=== PATIENT | male | born 1945 | race Caucasian/White ===

== ENCOUNTER 2018-12-16 09:44 | Emergency (ER) | payer MEDICARE, OTHER ==
[~2018-12-16] VITALS: Ht 170.2 cm; Wt 75.0 kg
[2018-12-16] MEDS ORDERED: DIATR MEGLU/DIATRIZOATE SODIUM 30 ML SOLUTION PO ONE (10:00)
[2018-12-16 10:03] VITALS: Ht 170.2 cm; Wt 75.0 kg
[2018-12-16] MEDS ORDERED: IOHEXOL 300MG/ML 30 ML BTL ONE (10:03)
--- NOTE | 2018-12-16 10:39 | ERD ---
ER Documentation Chief Complaint Chief Complaint ACCIDENTAL G TUBE REMOVAL AT 07:00 HPI This is a 73-year-old male with a past medical history of hypertension, hyperlipidemia, diabetes, CVA with right-sided deficits, vascular dementia, generalized weakness, unable to care for himself, in a nursing facility, dysphasia status post G-tube placement who is presenting for G-tube replacement. The patient reportedly accidentally got his G-tube removed. They placed a Ron catheter through the gastrostomy. The patient was transferred here for further assessment. It is not actively bleeding. The patient is comfortable and in no distress. History and physical is limited secondary to dementia. ROS Unable to obtain secondary to dementia PMhx/Soc History of Surgery: Yes (G-tube placement) Anesthesia Reaction: No Hx Neurological Disorder: Yes (CVA with right-sided hemiplegia, vascular dementia) Hx Respiratory Disorders: No Hx Cardiac Disorders: Yes (Hypertension, hyperlipidemia, diabetes) Hx Psychiatric Problems: Yes (Dementia) Hx Miscellaneous Medical Probl: Yes (Dysphasia) Hx Alcohol Use: No Hx Substance Use: No Hx Tobacco Use: No FmHx Unable to obtain Physical Exam Vitals Vital Signs Date Temp Pulse Resp B/P (MAP) Pulse Ox O2 O2 Flow FiO2 Time Delivery Rate 12/16/18 97.5 90 16 134/70 98 10:03 (91) Physical Exam Const: No acute distress Head: Atraumatic Eyes: Normal Conjunctiva ENT: Normal External Ears, Nose and Mouth. Neck: Full range of motion. No meningismus. Resp: Clear to auscultation bilaterally Cardio: Regular rate and rhythm, no murmurs Abd: Gastrostomy present with a Ron catheter through the site. Soft, non tender, non distended. Normal bowel sounds Skin: No petechiae or rashes Back: No midline or flank tenderness Ext: No cyanosis, or edema Neur: Awake and alert. Right-sided hemiplegia. Dysarthric. Results 24 hrs Current Medications Medications Dose Sig/Gisela Start Time Status Last (Trade) Ordered Route PRN Stop Time Admin Dose Reason Admin Diatrizoate 30 ml ONCE ONCE 12/16/18 DC Meglum/ PO 10:00 Diatrizoate 12/16/18 10:01 Sod (Gastrografin 66-10 Solution) Iohexol 30 ml STK-MED 12/16/18 DC (Omnipaque ONCE .ROUTE 10:03 300mg/ ml) 12/16/18 10:04 Procedures/[facility] MDM The patient's presentation warrants further investigation. Previous medical records, if available, were reviewed. IMAGING Imaging and Radiology interpretation reviewed. KUB with Omnipaque Reviewed by myself. Gastrostomy tube appears to be in place. Visualization of the lumen of the stomach via Omnipaque. No extravasation seen. TREATMENT/DISPOSITION The patient presents for G-tube replacement. This was completed without complication. I do not see any evidence of extravasation of the contrast material. There is no bleeding. The patient is stable with an unremarkable abdominal exam. I do not see any evidence of pneumoperitoneum. I do not suspect viscus perforation. PROCEDURE G-tube Placement Performer: Myself Preprocedure: Sterile technique, local prep and lubrication, time out performed. Location: Epigastrum Device: 20 serbian G-tube Technique: Dana pressure with twisting motion. Balloon inflation Results: Gastric contents expressed. Compl: none X-ray Abdomen 1V Interpreted by me: Free Air: None Bowel Gas: Nonspecific Contrast: Intraluminal DISCHARGE Upon reevaluation of the patient, symptoms have improved. No emergent diagnoses were identified. At this time, I feel that the patient stable for discharge. The patient was instructed to follow-up with a primary care physician in 1-3 days. The patient will be given strict precautions with which to return to the emergency department. Prescriptions: None The patient's blood pressure was elevated at greater than 120/80 while in the emergency department. The patient was otherwise stable with no evidence of hypertensive urgency or emergency. The patient does not require admission for blood pressure control. I have discussed with the patient the risks of hypertension. I have instructed the patient to return to the ER for any new or worsening symptoms including chest pain, shortness of breath, headache, blurred vision, confusion, nausea, vomiting or LOC. I have advised the patient to follow up with the primary care physician for outpatient monitoring and treatment for hypertension in 1-3 days. Disclaimer: Inadvertent spelling and grammatical errors are likely due to EHR/dictation software use and do not reflect on the overall quality of patient care. Note that the electronic time recorded on this note does not necessarily reflect the actual time of the patient encounter. Departure Diagnosis: Primary Impression: Encounter for feeding tube placement Condition: Stable Patient Instructions: Feeding Tube Replacement Additional Instructions: Thank you for for coming to [facility] for your care today. Please ask your nurse or provider if you have questions about your care today and do not leave until all your questions have been answered. Please use any medications given as directed and follow-up with your doctor (or the doctor you were referred to) in the next 1-3 days. If you do not have a primary care doctor you may follow up at the [facility] or [facility] (listed below). You may also use motrin and tylenol as needed for fever and/or pain unless instructed otherwise by your provider or nurse. Indications for more urgent follow-up have been discussed, but you may return to the Emergency Department at ANY time for any worrisome or worsening symptoms. If you have abdominal pain, please know that no test or exam you received is perfect and you should follow up within 8 hours for continued pain. If you had any imaging studies today, such as an X-Ray or CT Scan, these studies will be reviewed later by a radiologist. You will be called if there are important findings that were not identified today, so make sure the contact information you provided at registration is correct. If you received any narcotic pain control medicine today, such as Vicodin, Morphine or Dilaudid, your coordination and judgment may be affected for a number of hours. Please do not drive or operate heavy machinery, and you may want someone to assist you at home. If you were given a prescription for narcotic medication, be aware that it is very addictive- use sparingly and only if necessary. PLEASE SEEK FURTHER EVALUATION AND MANAGEMENT AT YOUR DOCTORS OFFICE WITHIN THE NEXT 1-3 DAYS. IT IS YOUR RESPONSIBILITY TO MAKE AN APPOINTMENT FOR FOLOW-UP CARE. IF YOU HAVE A PRIMARY DOCTOR, PLEASE CALL THEIR OFFICE TO SCHEDULE AN APPOINTMENT FOR FOLLOW UP. IF YOU DO NOT HAVE A PRIMARY DOCTOR YOU CAN CALL OUR PHYSICIAN REFERRAL HOTLINE AT IF YOU CAN NOT AFFORD TO SEE A PHYSICIAN YOU CAN CHOSE FROM THE FOLLOWING [facility]: [facility] [address] [facility] [address] [facility] [address] [facility] [address] [facility] [address] [facility]. [facility]. [address] MAXX ARCINIEGA MD Dec 16, 2018 10:33
[2018-12-16 11:21] VITALS: BP 107/59; PULSE 82; RESP 16
== END 2018-12-16 11:24 | disposition home or self-care (01) ==
LOC: E/R 09:44
DX: K94.23 Gastrostomy malfunction (principal); I10 Essential (primary) hypertension; E11.9 Type 2 diabetes mellitus without complications; Z86.73 Personal history of transient ischemic attack (TIA), and cerebral infarction without residual deficits
CPT/HCPCS: 43761; 74018; 99284; Q9967

== ENCOUNTER 2018-12-29 00:08 | Inpatient (IN) | payer MEDICARE, OTHER ==
[2018-12-29] VITALS (64 sets, daily range): BP systolic 74–140; BP diastolic 35–96; PULSE 91–113; RESP 19–31; Ht 175.3 cm; Wt 70.0 kg
[~2018-12-29] VITALS: Ht 175.3 cm; Wt 70.0 kg
[2018-12-29] MEDS ORDERED: ALBUTEROL 0.5% (NEB) 2.5 MG/0.5 ML AMP INH STA (00:14)
[2018-12-29] MEDS ORDERED: METHYLPREDNISOLONE 125 MG INJ IV STA (00:14)
[2018-12-29] MEDS ORDERED: IPRATROPIUM (NEB) 0.5 MG/2.5 ML AMP INH STA (00:14)
[2018-12-29] MEDS ORDERED: SODIUM CHLORIDE 0.9% 1L BAG IV* STA (00:48)
[2018-12-29] MEDS ORDERED: VANCOMYCIN 1 GM (PMX) 250 ML IVPB ONE (01:00)
[2018-12-29] MEDS ORDERED: CEFEPIME 1GM/50 ML (PMX) 50 ML IVPB ONE (01:00)
--- NOTE | 2018-12-29 01:49 | ERD ---
ER Documentation Chief Complaint Chief Complaint vignesh ra from residential for sob x1 hour, baseline dementia HPI This is a 73-year-old male with a past medical history of hypertension, hyperlipidemia, diabetes, previous CVA with residual right-sided deficits, vascular dementia, dysphasia status post G-tube placement, nonverbal at baseline who is presenting with shortness of breath and wheezing today, progressively worsening over the last hour. The patient was tachycardic in route to the hospital. The patient was initially hypoxic, but his oxygenation improved to the high 90s on a facemask with the paramedics. The patient was given an albuterol nebulized treatment prior to arrival. History and physical is limited secondary to clinical condition and chronic altered mentation. ROS All systems reviewed and are negative except as per history of present illness. Allergies Allergies: Coded Allergies: No Known Allergy (Unverified , 12/29/18) PMhx/Soc History of Surgery: Yes (G-tube placement) Anesthesia Reaction: No Hx Neurological Disorder: Yes (CVA with right-sided hemiplegia, vascular dementia) Hx Respiratory Disorders: No Hx Cardiac Disorders: Yes (Hypertension, hyperlipidemia, diabetes) Hx Psychiatric Problems: Yes (Dementia) Hx Miscellaneous Medical Probl: Yes (Dysphasia) Hx Alcohol Use: No Hx Substance Use: No Hx Tobacco Use: No Smoking Status: Never smoker FmHx Family History: No diabetes Physical Exam Vitals Vital Signs Date Temp Pulse Resp B/P (MAP) Pulse Ox O2 O2 Flow FiO2 Time Delivery Rate 12/29/18 96 50 03:36 12/29/18 98.8 105 33 100/51 99 Mechanical 03:26 (67) Ventilator 12/29/18 96 50 02:35 12/29/18 110 30 97/41 (59) 99 Non 01:30 Rebreather 12/29/18 118 16 121/65 100 Non 00:45 (83) Rebreather 12/29/18 108 30 100 Non 100 00:38 Rebreather Mask 12/29/18 Nasal 2 00:22 Cannula 12/29/18 97.5 120 28 124/81 100 Room Air 00:22 (95) 12/29/18 97.5 115 28 127/81 100 00:12 (96) Physical Exam Const: No acute distress, minimally responsive at baseline. Head: Atraumatic Eyes: Normal Conjunctiva ENT: Normal External Ears, Nose. Dry mucous membranes. Neck: Trachea is midline. Resp: Increased work of breathing. Diffuse inspiratory and expiratory wheezes. Cardio: Regular rhythm, tachycardia, no murmurs or rubs or gallops Abd: G-tube present. Soft, non tender, non distended. Normal bowel sounds Skin: Pale. No petechiae or rashes Back: No midline or flank tenderness Ext: No cyanosis, or edema Neur: Awake and alert. Right-sided hemiplegia. Result Diagram: 12/29/18 0042 12/29/18 0042 Results 24 hrs Laboratory Tests Test 12/29/18 00:34 12/29/18 00:42 12/29/18 01:40 12/29/18 02:06 POC Venous 8.4 mmol/L Lactate White Blood 14.8 10^3/ul Count Red Blood Count 4.73 10^6/ul Hemoglobin 14.2 g/dl Hematocrit 42.6 % Mean Corpuscular 90.1 fl Volume Mean Corpuscular 30.0 pg Hemoglobin Mean Corpuscular 33.3 g/dl Hemoglobin Alice nt Red Cell 14.1 % Distribution Width Platelet Count 301 10^3/UL Mean Platelet 11.5 fl Volume Immature 1.400 % Granulocytes % Neutrophils % 79.4 % Lymphocytes % 13.6 % Monocytes % 4.5 % Eosinophils % 0.4 % Basophils % 0.7 % Nucleated Red 0.0 /100WBC Blood Cells % Immature 0.210 10^3/ul Granulocytes # Neutrophils # 11.8 10^3/ul Lymphocytes # 2.0 10^3/ul Monocytes # 0.7 10^3/ul Eosinophils # 0.1 10^3/ul Basophils # 0.1 10^3/ul Nucleated Red 0.0 10^3/ul Blood Cells # Prothrombin Time 13.1 Sec Prothrombin Time 1.0 Ratio INR 0.98 International Normalized Ratio Activated 27.5 Sec Partial Thrombop last Time Sodium Level 139 mmol/L Potassium Level 4.9 mmol/L Chloride Level 97 mmol/L Carbon Dioxide 24 mmol/L Level Anion Gap 18 Blood Urea 39 mg/dl Nitrogen Creatinine 0.93 mg/dl Est Glomerular mL/min Filtrat Rate mL/min Glucose Level 254 mg/dl Calcium Level 10.5 mg/dl Troponin I 0.032 ng/ml Urine Color RIGO Urine Clarity CLOUDY Urine pH 5.0 Urine Specific 1.026 [place] Urine Ketones TRACE mg/dL Urine Nitrite NEGATIVE mg/dL Urine Bilirubin NEGATIVE mg/dL Urine 1+ mg/dL Urobilinogen Urine Leukocyte NEGATIVE Yesi/ul Esterase Urine 92 /HPF Microscopic RBC Urine 2 /HPF Microscopic WBC Urine Bacteria FEW /HPF Urine Hyaline FEW /HPF Casts Urine Mucus FEW /HPF Urine Hemoglobin 2+ mg/dL Urine Glucose 1+ mg/dL Urine Total 1+ mg/dl Protein Blood Gas Blood arterial Specimen Source Arterial Blood 12/29/2018 2:10:1 Date Drawn 2 AM Arterial Blood 7.266 pH (Temp corrected) Arterial Blood 35.5 mmhg pCO2 (Temp correct) Arterial Blood 76.9 mmHG pO2 (Temp corrected) Arterial Blood 15.8 mmol/L HCO3 Arterial Blood -10.3 mmol/L Base Excess Arterial Blood 92.8 mmHG Oxygen Saturatio n Pérez Test N/A Arterial Blood Right Brachial Gas Puncture Site Arterial 0.3 % Blood Carboxyhem oglobin Arterial Blood 0.4 % Methemoglobin Blood Gas A-a O2 95.3 mmHg Differential Oxyhemoglobin 92.2 % Percent Blood Gas 37.0 C Temperature Blood Gas NASAL CANNULA Modality FiO2 30.0 % Blood Gas Kris DUFF MD Critical Value Read Back Blood Gas Notified Whom Blood Gas 12/29/2018 2:17:5 Notified Time 7 AM Test 12/29/18 02:30 Lactic Acid 11.4 mmol/L Level Current Medications Medications Dose Sig/Gisela Start Time Status Last (Trade) Ordered Route PRN Stop Time Admin Dose Reason Admin Ipratropium 1.5 mg ONCE STAT 12/29/18 DC 12/29/18 [place] INH 00:14 12/29/18 00:37 (Atrovent 00:17 0.02% (Neb)) Albuterol 15 mg ONCE STAT 12/29/18 DC 12/29/18 (Proventil INH 00:14 12/29/18 00:37 0.5% (Neb)) 00:17 125 mg ONCE STAT 12/29/18 DC 12/29/18 Methylprednis IV 00:14 12/29/18 01:31 olone Sodium 00:17 Succinate (Solu-Medrol) Sodium 2,100 ml BOLUS OVER 2 12/29/18 DC 12/29/18 Chloride HOURS STAT 00:48 12/29/18 01:20 (NS) IV* 00:50 Vancomycin 250 ml @ ONCE ONCE 12/29/18 DC 12/29/18 HCl 125 mls/hr IVPB 01:00 12/29/18 01:31 02:59 Cefepime HCl 50 ml @ ONCE ONCE 12/29/18 DC 12/29/18 100 mls/hr IVPB 01:00 12/29/18 01:20 01:29 Ondansetron 4 mg ER BRIDGE 12/29/18 HCl (Zofran PRN IV 02:00 12/30/18 Inj) NAUSEA/VOMITI 01:59 NG 650 mg ER BRIDGE 12/29/18 Acetaminophen PRN PO 02:00 12/30/18 (Tylenol .MILD PAIN 01:59 Tab) 1-3 OR TEMP IV Flush 10 ml STK-MED 12/29/18 DC (NS 10 ml) ONCE .ROUTE 03:32 12/29/18 03:33 Sodium 100 ml @ ud STK-MED 12/29/18 DC Chloride ONCE .ROUTE 03:32 12/29/18 03:33 Iohexol 100 ml @ ud STK-MED 12/29/18 DC ONCE .ROUTE 03:32 12/29/18 03:33 Sodium 1,000 ml @ Q10H IV 12/29/18 Chloride 100 mls/hr 03:28 Ondansetron 4 mg Q6H PRN 12/29/18 HCl (Zofran IV NAUSEA 03:30 Inj) AND/OR VOMITING Albuterol/ 3 ml Q2H RESP 12/29/18 Ipratropium THERAPY PRN 03:30 (Duoneb) NEB SHORTNESS OF BREATH 650 mg Q6H PRN 12/29/18 Acetaminophen PO PAIN 03:30 (Tylenol LEVEL 1-3 OR Liquid) FEVER 40 mg DAILY@06 12/29/18 DC Pantoprazole IV 06:00 12/29/18 (Protonix 06:00 Iv) Heparin 5,000 unit Q12 SC 12/29/18 Sodium 09:00 (Porcine) (Heparin (5000 Units/1ml)) Famotidine 20 mg BID IV 12/29/18 (Pepcid Iv) 09:00 Cefepime HCl 50 ml @ Q12 IVPB 12/29/18 100 mls/hr 14:00 Vancomycin VANCOMYCIN PER 12/29/18 HCl (Vanco PER PHARMACY PROTOCOL XX 14:00 Iv Per Pharmacy) Vancomycin 250 ml @ Q12H IVPB 12/29/18 HCl 125 mls/hr 10:00 VANCOMYCIN 2100 ONCE 12/30/18 Miscellaneous TROUGH LEVEL XX 21:00 12/30/18 21:01 Information (*Rx Drug Level Order Reminder*) Procedures/MDM MDM The patient's presentation warrants further investigation. Previous medical records, if available, were reviewed. LABS The patient's laboratory testing was obtained and reviewed. No emergent treatment was required unless described below. CBC: Leukocytosis, potentially from a systemic infection. No E/o anemia or thrombocytopenia Chemistry: No E/o severe acidosis or alkalosis or renal failure. Elevated BUN, concerning for possible dehydration. Hyperglycemia without DKA. PT/INR: No E/o significant coagulopathy Lactate: Elevated, concerning for the possibility of septic shock. Troponin: No E/o acute ischemia Urine: Hematuria. No evidence of infection. ABG: Metabolic acidosis. Slight hypoxemia. EKG EKG read by me: Rate/Rhythm: Sinus tachycardia at 109 bpm Intervals: Normal [place]: Normal Impression: No evidence of acute ischemia. Sinus tachycardia IMAGING Imaging and Radiology interpretation reviewed. CXR 1V Interpreted by me Soft Tissue: No acute abnormalities Bones: No acute abnormalities Mediastinum/Cardiac Silhouette: Unremarkable. No widened mediastinum. Lungs: No acute abnormalities. Normal pulmonary vasculature. No pneumothorax. No pulmonary edema. Clear costal diaphragmatic angles. No pleural effusions. No opacity or consolidations concerning for pneumonia. TREATMENT/DISPOSITION The patient presents in respiratory distress with wheezes and tachycardia. He was hypoxic prior to arrival and started on facemask with improvement of his o xygenation. The patient was wheezing on my exam as well. The patient was treated with nebulized albuterol and ipratropium in addition to IV Solu-Medrol given my concerns of bronchitis. Lactic acid was completed early in the patient's course and found to be very elevated. Given the patient's lack of respiratory history, I am concerned about a possible infectious etiology of the patient's bronchitis. The patient does meet criteria for septic shock based on the lactic acid. The patient does have hypoxia with tachycardia and a very elevated AA gradient. I did order a CTA of the chest to evaluate for the possibility of other etiologies, such as a pulmonary embolism. This study is currently pending. SEPSIS NOTE SIRS Criteria: Tachycardia, leukocytosis Infectious source: Respiratory End organ damage indicated by: Lactate > 2.0 mmol/L, AHRF Sat < 92% without oxygen SEPSIS MANAGEMENT Time to recognize sepsis: 39. Time to recognize severe sepsis: 39. Time to recognize septic shock: 0. 3 HOUR BUNDLE Blood cultures x 2 before abx: Yes 30 ml/kg NS bolus completed Initial lactate 8.4 Repeat lactate 11.4 SEPTIC SHOCK ASSESSMENT: YES lactic acid > 4.0 NO persistent hypotension (SBP < 90 or 40 mmHg drop, MAP < 65) despite 30 L/kg IV fluid bolus VOLUME REASSESSMENT FOR SEPTIC SHOCK: Reevaluation Time: 325 Temp 98.8, BP 100/51, HR 105, RR 33, Pox 99% on vapotherm Heart regular rhythm, tachycardia Lungs coarse breath sounds Skin warm & dry Cap Refill less than 2 seconds Pulses radially present PERSISTENT HYPOTENSION TREATMENT: Comfort care no Central line not required Vasopressors not required I considered further perfusion assessment with CVP measurement, SCVO2, bedside ultrasound volume assessment, passive leg raise, trial of further fluid bolus. And proceeded with 30 ml/kg fluid bolus of NSS, broad spectrum antibiotics, and admission. CRITICAL CARE Critical care time 35 minutes Emergent fluid management while maintaining close respiratory support. Provision of immediate and broad-spectrum antibiotic therapy. Simultaneous assessment for possible sources in order to direct targeted therapy. Consideration for invasive and chemical support to prevent cardiopulmonary collapse. Critical care time is independent of procedures performed. ADMISSION At this time, I feel that the patient requires admission for further evaluation and management. The patient will be admitted to panel in accordance with the patient's insurance. The patient was accepted by Dr. Dickerson at 0115 AM 12/29/2018 to the ICU. Disclaimer: Inadvertent spelling and grammatical errors are likely due to EHR/dictation software use and do not reflect on the overall quality of patient care. Note that the electronic time recorded on this note does not necessarily reflect the actual time of the patient encounter. Departure Diagnosis: Primary Impression: Septic shock Additional Impressions: Tachycardia Hypoxia Bronchitis Wheezing Leukocytosis Leukocytosis type: unspecified Qualified Codes: D72.829 - Elevated white b lood cell count, unspecified Lactic acid acidosis Condition: Serious MAXX DUFF MD Dec 29, 2018 01:46
[2018-12-29] MEDS ORDERED: ONDANSETRON 4 MG INJ IV PRN ×3 (02:00→08:30)
[2018-12-29] MEDS ORDERED: ACETAMINOPHEN 325 MG TAB PO PRN (02:00)
[2018-12-29] MEDS ORDERED: SOD CHLORIDE 0.9% 1,000 ML IV SCH (03:28)
[2018-12-29] MEDS ORDERED: ALBUTEROL/IPRATROPIUM (NEB) 3 ML AMP NEB PRN (03:30)
[2018-12-29] MEDS ORDERED: SOD CHLORIDE 0.9% 100 ML ONE (03:32)
[2018-12-29] MEDS ORDERED: IOHEXOL 100 ML ONE (03:32)
[2018-12-29] MEDS ORDERED: PANTOPRAZOLE 40 MG INJ IV SCH (06:00)
--- NOTE | 2018-12-29 06:09 | HP ---
Date/Time of Note Date/Time of Note DATE: 12/29/18 TIME: 06:03 Assessment/Plan VTE Prophylaxis Pharmacological prophylaxis: heparin Lines/Catheters IV Catheter Type (from Nrsg): Saline Lock Assessment/Plan Assessment/Plan 1. Septic shock: 2/2 Healthcare associated pneumonia -IV fluids, IV antibiotic -Initiate pressor after talking to family/decision-maker -Trend lactate -Follow-up culture results 2. Hypoxia: ABG with high A-a gradient -Follow-up chest CT results -Supplemental oxygen, bronchodilators, steroid -Pulmonary consult 3. Diabetes: Insulin while in-house 4. History of hypertension: See #1 5. History of CVA with right-sided hemiplegia 6. Dementia: Supportive care 7. Dysphagia with G-tube -Tube was exchanged here in our ER 2 weeks ago CODE STATUS: DNR/DNI Result Diagram: 12/29/18 0042 12/29/18 0042 Results 24hrs Laboratory Tests Test 12/29/18 00:34 12/29/18 00:42 12/29/18 01:40 12/29/18 02:06 POC Venous Lactate 8.4 *H White Blood Count 14.8 H Red Blood Count 4.73 Hemoglobin 14.2 Hematocrit 42.6 Mean Corpuscular 90.1 Volume Mean Corpuscular 30.0 Hemoglobin Mean Corpuscular 33.3 Hemoglobin Concent Red Cell 14.1 Distribution Width Platelet Count 301 Mean Platelet 11.5 H Volume Immature 1.400 H Granulocytes % Neutrophils % 79.4 H Lymphocytes % 13.6 L Monocytes % 4.5 Eosinophils % 0.4 Basophils % 0.7 Nucleated Red 0.0 Blood Cells % Immature 0.210 H Granulocytes # Neutrophils # 11.8 H Lymphocytes # 2.0 Monocytes # 0.7 Eosinophils # 0.1 Basophils # 0.1 Nucleated Red 0.0 Blood Cells # Prothrombin Time 13.1 Prothrombin Time 1.0 Ratio INR International 0.98 Normalized Ratio Activated 27.[address] Time Sodium Level 139 Potassium Level 4.9 Chloride Level 97 Carbon Dioxide 24 Level Anion Gap 18 H Blood Urea 39 H Nitrogen Creatinine 0.93 Est Glomerular Filtrat Rate mL/min Glucose Level 254 H Calcium Level 10.5 H Troponin I 0.032 Urine Color RIGO Urine Clarity CLOUDY A Urine pH 5.0 Urine Specific 1.026 [place] Urine Ketones TRACE A Urine Nitrite NEGATIVE Urine Bilirubin NEGATIVE Urine Urobilinogen 1+ H Urine Leukocyte NEGATIVE Esterase Urine Microscopic 92 H RBC Urine Microscopic 2 WBC Urine Bacteria FEW A Urine Hyaline FEW A Casts Urine Mucus FEW A Urine Hemoglobin 2+ H Urine Glucose 1+ H Urine Total 1+ H Protein Blood Gas Specimen Blood arterial Source Arterial Blood 12/29/2018 2:10:12 Date Drawn AM Arterial Blood pH 7.266 *L (Temp corrected) Arterial Blood 35.5 pCO2 (Temp correct) Arterial Blood pO2 76.9 L (Temp corrected) Arterial Blood 15.8 L HCO3 Arterial Blood -10.3 L Base Excess Arterial Blood 92.8 L Oxygen Saturation Pérez Test N/A Arterial Blood Gas Right Brachial Puncture Site Arterial 0.3 Blood Carboxyhemog lobin Arterial Blood 0.4 Methemoglobin Blood Gas A-a O2 95.3 H Differential Oxyhemoglobin 92.2 L Percent Blood Gas 37.0 Temperature Blood Gas Modality NASAL CANNULA FiO2 30.0 Blood Gas Critical Kris DUFF MD Value Read Back Blood Gas Notified KM Whom Blood Gas Notified 12/29/2018 2:17:57 Time AM Test 12/29/18 02:30 12/29/18 04:42 Lactic Acid Level 11.4 *H 11.7 *H HPI/ROS Admit Date/Time Admit Date/Time Hx of Present Illness Patient is a 73-year-old male with a history of dementia, CVA was right-sided deficits, hypertension, diabetes, dysphagia with G-tube. Patient was brought from [facility] for shortness of breath, wheezing and hypoxia. Patient was noted to have a diffuse wheezing. On presentation to the ER he was tachycardic with heart rate in the 120s and tachypneic with respiratory rates almost 30. Initially blood pressure was okay however has been progressively becoming more hypotensive. Lab shows a WBC of almost 15,000. Initial lactic acid 8 but has been trending up, currently almost 12. ABG on 30% FiO2 showed pH of 7.26, PCO2 35, PO2 77, bicarb 16 and high A-a gradient of 95. Chest x-ray without acute findings. CT chest results pending. Patient was seen in our ER for G-tube replacement after it was accidentally pulled out 2 weeks ago. Patient is DNR. PMH/Family/Social Past Medical History Medical History: other (See HPI) Medications Current Medications Ondansetron HCl (Zofran Inj) 4 mg ER BRIDGE PRN IV NAUSEA/VOMITING; Start 12/29/18 at 02:00; Stop 12/30/18 at 01:59 Acetaminophen (Tylenol Tab) 650 mg ER BRIDGE PRN PO .MILD PAIN 1-3 OR TEMP; Start 12/29/18 at 02:00; Stop 12/30/18 at 01:59 Sodium Chloride 1,000 ml @ 100 mls/hr Q10H IV Last administered on 12/29/18at 04:35; Admin Dose 100 MLS/HR; Start 12/29/18 at 03:28 Ondansetron HCl (Zofran Inj) 4 mg Q6H PRN IV NAUSEA AND/OR VOMITING; Start 12/29/18 at 03:30 Albuterol/ Ipratropium (Duoneb) 3 ml Q2H RESP THERAPY PRN NEB SHORTNESS OF BREATH; Start 12/29/18 at 03:30 Acetaminophen (Tylenol Liquid) 650 mg Q6H PRN PO PAIN LEVEL 1-3 OR FEVER; Start 12/29/18 at 03:30 Heparin Sodium (Porcine) (Heparin (5000 Units/1ml)) 5,000 unit Q12 SC ; Start 12/29/18 at 09:00 Famotidine (Pepcid Iv) 20 mg BID IV ; Start 12/29/18 at 09:00 Cefepime HCl 50 ml @ 100 mls/hr Q12 IVPB ; Start 12/29/18 at 14:00 Vancomycin HCl (Vanco Iv Per Pharmacy) VANCOMYCIN PER PHARMACY PER PROTOCOL XX ; Start 12/29/18 at 14:00 Vancomycin HCl 250 ml @ 125 mls/hr Q12H IVPB ; Start 12/29/18 at 10:00 Miscellaneous Information (*Rx Drug Level Order Reminder*) VANCOMYCIN TROUGH LEVEL 2100 ONCE XX ; Start 12/30/18 at 21:00; Stop 12/30/18 at 21:01 Coded Allergies: No Known Allergy (Unverified , 12/29/18) Past Surgical History Past Surgical Hx: other (See HPI) Family History Significant Family History: no pertinent family hx Social History Alcohol Use: none Smoking Status: Never smoker Drug Use: none Exam/Review of Systems Vital Signs Vitals Vital Signs Date Temp Pulse Resp B/P (MAP) Pulse Ox O2 O2 Flow FiO2 Time Delivery Rate 12/29/18 97.9 92 28 79/48 (58) 99 Mechanical 05:33 Ventilator 12/29/18 50 05:30 12/29/18 2 00:22 Exam Constitutional: other (No acute distress. Patient is not oriented, however he looks comfortable) Head: normocephalic, atraumatic Eyes: PERRL Respiratory: diminished breath sounds, wheezing Cardiovascular: other (Tachycardic regular rhythm) Gastrointestinal: soft, other (G-tube in place) Extremities: normal pulses MAI OHARA MD Dec 29, 2018 06:09
[2018-12-29] MEDS ORDERED: NORepinephrine 8MG/250 ML (PMX 250 ML IV ONE (06:22)
[2018-12-29] MEDS ORDERED: NORepinephrine 8MG/250 ML (PMX 250 ML ONE (06:23)
[2018-12-29] MEDS ORDERED: SOD CHLORIDE 0.9% 1,000 ML IV ONE (06:30)
[2018-12-29] MEDS ORDERED: GLUCOSE GEL 15 GRAM TUBE PO PRN ×2 (09:00)
[2018-12-29] MEDS ORDERED: DEXTROSE 50% 50 ML SYRINGE IV PRN ×2 (09:00)
[2018-12-29] MEDS ORDERED: GLUCOSE GEL 15 GRAM TUBE BUCCAL PRN (09:00)
[2018-12-29] MEDS ORDERED: GLUCAGON 1 MG INJ IM PRN (09:00)
[2018-12-29] MEDS: ALBUTEROL/IPRATROPIUM (NEB) 3 ML AMP HHN SCH ×4 (09:00→21:26)
[2018-12-29] MEDS: FAMOTIDINE 20 MG INJ IV SCH ×2 (09:28→21:12)
[2018-12-29] MEDS: HEPARIN 5,000 UNIT/1 ML VIAL SC SCH ×2 (09:31→21:15)
--- NOTE | 2018-12-29 11:04 | RADRPT ---
Vent Rate: 109 bpm RR Interval: 552 msec MD Interval: 176 msec QRS Duration: 88 msec QT Interval: 361 msec QTC Interval: 486 msec P-R-T [place]: 15 - 73 - 53 degrees Sinus tachycardia...rate> 99 ST elevation, consider inferior injury...ST >0.08mV, II III aVF Electronically Signed By: Juliann Sanderson
[2018-12-29] MEDS: VANCOMYCIN 1 GM 250 ML IVPB SCH ×2 (11:09→22:23)
[2018-12-29] MEDS: INSULIN ASPART [NOVOLOG] 3 ML PEN SC SCH ×4 (11:15→21:00)
[2018-12-29] MEDS: SOD CHLORIDE 0.9% 1,000 ML IV SCH ×2 (11:30→17:09)
--- NOTE | 2018-12-29 12:01 | HP ---
DATE OF ADMISSION: 12/29/2018 CHIEF COMPLAINT AND HISTORY OF PRESENT ILLNESS: The patient is a 73-year-old gentleman bruce rick in from [facility] for evaluation for altered mental status with shortness of breath as well. In the emergency room, found to be tachycardic, hypoxic, hypotensive and was rajni raquel on pressors and was admitted to the intensive care unit. The patient is unable to provide any co gent history because of his prior stroke and aphasia. The patient's son Jose is at bedside and is paramjit ble to provide any history. The patient sustained 3 strokes recently, the last one with right sided hemiplegia after which he was placed in a convalescent home six months back. He has had a long histo ry of hypertension, diabetes mellitus type 2. HABITS: Does not smoke or drink. There has been no prior cardiac history, and he does have a histor y of hyperlipidemia. Patient also has had severe right hemiplegia and vascular dementia. He had a G -tube placed recently for neurogenic dysphagia. MEDICATIONS: Include: 1. Metformin 500 mg b.i.d. 2. Zofran p.r.n. 3. NovoLog insulin 5 units t.i.d. before meals. 4. Metoprolol 25 mg b.i.d. 5. Atorvastatin 40 mg daily. 6. Aricept 5 mg daily. 7. Lisinopril 40 mg daily. 8. Plavix 75 mg daily. 9. Diabetisource 75 mL per hour for 20 hours. 10. Basaglar insulin 32 units at bedtime. SOCIAL HISTORY: He does not smoke or drink. FAMILY HISTORY: Negative for colon or breast cancer or premature coronary artery disease. SOCIAL HISTORY: The patient is , has 1 son. 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 PHYSICAL EXAMINATION: GENERAL: The patient is an average-built male who is presently awake, aphasic. VITAL SIGNS: Temperature 98.0, blood pressure 100/39, heart rate is 100 per minute and regular. HEENT: Head normocephalic. Mild pallor without cyanosis. LUNGS: Clinically clear anteriorly. HEART: S1, S2 with no definite gallops. ABDOMEN: Soft, obese, nontender, no hepatosplenomegaly. There is leakage around the G-tube. EXTREMITIES: Trace edema. Extremities cold. Pedal pulsations poorly palpable. Onychomycosis of th e toenails present. NEUROLOGIC: Right hemiparesis. IMPRESSION: 1. Septic shock with healthcare-associated pneumonia with hypoxemic respiratory failure. 2. Diabetes mellitus type 2. No evidence of DKA. 3. Prior history of hypertension. 4. Status post severe . 5. Hyperlipidemia. PLAN: Will continue vancomycin and Zosyn. Continue IV Zosyn. Cefepime. Closely monitor for signs of failure, control of hyperglycemia. Restart Diabetisource at 40 mL per hour. Will get GI consulta tionDr. Joyce regarding G-tube, repeat portable chest and labs in a.m. Dictated By: JP THACKER MD SR/NTS Conf#: [id number] DID#: [id number] CC: MADELINE KRAUSE MD;*EndCC*
[2018-12-29] MEDS: CEFEPIME 1GM/50 ML (PMX) 50 ML IVPB SCH ×2 (13:19→21:12)
[2018-12-29] MEDS ORDERED: ACCU-CHEK XX ONE (14:00)
[2018-12-29] MEDS ORDERED: INSULIN ASPART [NOVOLOG] 3 ML PEN SC ONE (14:00)
[2018-12-29] MEDS ORDERED: VANCOMYCIN IV PER PHARMACY XX SCH (14:00)
--- NOTE | 2018-12-29 14:38 | RADRPT ---
Echocardiogram Report Patient Name: YANIV OLMOS MPatient ID: [id number] : 1945 (73y 4m)Study Date: 12/29/2018 10:21:43 AM Gender: MAccession #: [id number] Tech: Conchita Castelan RDCS Location: ICU 116-A Ref.Physician: MAI OHARA Height(Cm): BSA: Weight(Kg): Quality: Technically Difficult StudyOrder Physician: MAI OHARA Account #: Procedures: Echocardiographic Report: Transthoracic echocardiogram with complete 2D, M-Mode, and doppler examination. Indications: Shortness of breath. Measurements: 2D/M Mode Doppler Measurement Value Normal Range Measurement Value Normal Range LVIDd 2D 3.1 [ 4.2 - 5.8 ] cm AV Peak Tahir 1.5 [ 100.0 - 170.0 ] cm/se c LVIDs 2D 2.1 [ 2.5 - 4.0 ] cm AV Peak PG 9.0 [ 2.0 - 9.0 ] mmHg LVPWd 2D 0.7 [ 0.6 - 1.0 ] cm LVOT Peak Tahir 0.8 [ 70.0 - 110.0 ] cm/sec IVSd 2D 0.9 [ 0.6 - 1.0 ] cm LVOT Peak PG 3.0 [ 2.0 - 6.0 ] mmHg AoR Diam 2D 2.7 [ 2.6 - 3.4 ] cm MV E Peak Tahir 1.1 [ 60.0 - 130.0 ] cm/sec EDV 2D 37.6 [ 62.0 - 150.0 ] ml MV A Peak Tahir 1.3 [ 100.0 - 120.0 ] cm/se c ESV 2D 13.7 [ 21.0 - 61.0 ] ml MV E/A 0.8 [ 0.8 - 1.5 ] ratio EF 2D 63.6 [ 52.0 - 72.0 ] percent MV PHT 58.0 [ 20.0 - 100.0 ] msec LA Dimen 2D 2.2 [ 3.0 - 4.0 ] cm MV Decel Time 197 [ 104 - 258 ] msec MV Decel [place] 5 Lat E` Tahir 0.1 [ 10.0 - 15.0 ] cm/sec Lateral E/E` 8.1 [ 1.0 - 2.0 ] ratio Med E` Tahir 0.1 cm/sec MV E/A 0.8 [ 0.8 - 1.5 ] ratio MVA PHT 3.8 [ 2.0 - 4.0 ] cm2 Findings: Left Ventricle: Normal left ventricular systolic function. Normal left ventricular cavity size. Normal left ventricular wall thickness. Tissue Doppler/Mitral Doppler indices are consistent with impaired relaxation (Stage I diastolic dysfunction). Right Ventricle: Normal right ventricular size. Normal right ventricular systolic function. Left Atrium: The left atrium is normal in size. Right Atrium: The right atrium is normal in size. Atrial Septum: Normal atrial septum. Ventricular septum: Normal/intact ventricular septum. Mitral Valve: Normal appearance of the mitral valve. Aortic Valve: Normal appearance of the aortic valve. No aortic regurgitation. Tricuspid Valve: Normal appearance of the tricuspid valve. Tricuspid valve not well visualized. No evidence of tricuspid regurgitation. Pulmonic Valve: Pulmonic valve not well visualized. Pericardium: Normal pericardium with no significant pericardial effusion. Aorta: Normal aortic root. IVC: Normal size and normal respiratory collapse consistent with normal right atrial pressure. Conclusions: Normal left ventricular systolic function. Normal left ventricular cavity size. Normal left ventricular wall thickness. Tissue Doppler/Mitral Doppler indices are consistent with impaired relaxation (Stage I diastolic dysfunction). Normal appearance of the mitral valve. Normal appearance of the tricuspid valve. Tricuspid valve not well visualized. No evidence of tricuspid regurgitation. Electronically Signed By: Walter Warner 2018-12-29 14:38:10 PDT
--- NOTE | 2018-12-29 19:19 | PN ---
Date/Time of Note Date/Time of Note DATE: 12/29/18 TIME: 19:08 Assessment/Plan Lines/Catheters IV Catheter Type (from Nrs): Central Line Urinary Cath still in place: Yes Assessment/Plan Result Diagram: 12/29/18 0042 12/29/18 0042 Results 24hrs Laboratory Tests Test 12/29/18 00:34 12/29/18 00:39 12/29/18 00:42 12/29/18 01:40 POC Venous Lactate 8.4 *H 8.2 *H White Blood Count 14.8 H Red Blood Count 4.73 Hemoglobin 14.2 Hematocrit 42.6 Mean Corpuscular 90.1 Volume Mean Corpuscular 30.0 Hemoglobin Mean Corpuscular 33.3 Hemoglobin Concent Red Cell 14.1 Distribution Width Platelet Count 301 Mean Platelet 11.5 H Volume Immature 1.400 H Granulocytes % Neutrophils % 79.4 H Lymphocytes % 13.6 L Monocytes % 4.5 Eosinophils % 0.4 Basophils % 0.7 Nucleated Red 0.0 Blood Cells % Immature 0.210 H Granulocytes # Neutrophils # 11.8 H Lymphocytes # 2.0 Monocytes # 0.7 Eosinophils # 0.1 Basophils # 0.1 Nucleated Red 0.0 Blood Cells # Prothrombin Time 13.1 Prothrombin Time 1.0 Ratio INR International 0.98 Normalized Ratio Activated 27.[address] Time Sodium Level 139 Potassium Level 4.9 Chloride Level 97 Carbon Dioxide 24 Level Anion Gap 18 H Blood Urea 39 H Nitrogen Creatinine 0.93 Est Glomerular Filtrat Rate mL/min Glucose Level 254 H Calcium Level 10.5 H Troponin I 0.032 Urine Color RIGO Urine Clarity CLOUDY A Urine pH 5.0 Urine Specific 1.026 [place] Urine Ketones TRACE A Urine Nitrite NEGATIVE Urine Bilirubin NEGATIVE Urine Urobilinogen 1+ H Urine Leukocyte NEGATIVE Esterase Urine Microscopic 92 H RBC Urine Microscopic 2 WBC Urine Bacteria FEW A Urine Hyaline FEW A Casts Urine Mucus FEW A Urine Hemoglobin 2+ H Urine Glucose 1+ H Urine Total 1+ H Protein Test 12/29/18 02:06 12/29/18 02:30 12/29/18 04:42 12/29/18 05:36 Blood Gas Specimen Blood arterial Source Arterial Blood 12/29/2018 2:10:12 Date Drawn AM Arterial Blood pH 7.266 *L (Temp corrected) Arterial Blood 35.5 pCO2 (Temp correct) Arterial Blood pO2 76.9 L (Temp corrected) Arterial Blood 15.8 L HCO3 Arterial Blood -10.3 L Base Excess Arterial Blood 92.8 L Oxygen Saturation Pérez Test N/A Arterial Blood Gas Right Brachial Puncture Site Arterial 0.3 Blood Carboxyhemog lobin Arterial Blood 0.4 Methemoglobin Blood Gas A-a O2 95.3 H Differential Oxyhemoglobin 92.2 L Percent Blood Gas 37.0 Temperature Blood Gas Modality NASAL CANNULA FiO2 30.0 Blood Gas Critical Kris DUFF MD Value Read Back Blood Gas Notified KM Whom Blood Gas Notified 12/29/2018 2:17:57 Time AM Lactic Acid Level 11.4 *H 11.7 *H D-Dimer 2398.07 H D-Dimer Comment Test 12/29/18 07:00 12/29/18 07:30 12/29/18 09:29 12/29/18 10:54 Blood Gas Specimen Blood arterial Source Arterial Blood 12/29/2018 8:40:55 Date Drawn AM Arterial Blood pH 7.354 (Temp corrected) Arterial Blood 32.2 L pCO2 (Temp correct) Arterial Blood pO2 108.2 H (Temp corrected) Arterial Blood 17.5 L HCO3 Arterial Blood -7.0 L Base Excess Arterial Blood 97.7 Oxygen Saturation Pérez Test ACCEPTAB Arterial Blood Gas Right Radial Puncture Site Arterial 0.3 Blood Carboxyhemog lobin Arterial Blood 0.3 Methemoglobin Blood Gas A-a O2 132.8 H Differential Oxyhemoglobin 97.1 Percent Blood Gas 37.0 Temperature Blood Gas Modality NASAL CANNULA FiO2 39.0 Blood Gas Notified DT Whom Blood Gas Notified 12/29/2018 8:55:38 Time AM Bedside Glucose 325 H 363 H 369 H Test 12/29/18 13:20 12/29/18 14:17 12/29/18 16:45 Bedside Glucose 377 H 378 H 261 H Subjective 24 Hr Interval Summary Subjective hx not possible: pt non-verbal Exam/Review of Systems Exam Vitals Vital Signs Date Temp Pulse Resp B/P (MAP) Pulse Ox O2 O2 Flow FiO2 Time Delivery Rate 12/29/18 100 22 74/35 (48) 98 18:45 12/29/18 Room Air 18:00 12/29/18 2.0 28 17:35 12/29/18 97.6 16:00 Constitutional: alert, oriented Respiratory: clear to auscultation Cardiovascular: regular rate and rhythm Gastrointestinal: soft; No distended Musculoskeletal: nl extremities to inspection Results Results 24hrs Laboratory Tests Test 12/29/18 00:34 12/29/18 00:39 12/29/18 00:42 12/29/18 01:40 POC Venous Lactate 8.4 *H 8.2 *H White Blood Count 14.8 H Red Blood Count 4.73 Hemoglobin 14.2 Hematocrit 42.6 Mean Corpuscular 90.1 Volume Mean Corpuscular 30.0 Hemoglobin Mean Corpuscular 33.3 Hemoglobin Concent Red Cell 14.1 Distribution Width Platelet Count 301 Mean Platelet 11.5 H Volume Immature 1.400 H Granulocytes % Neutrophils % 79.4 H Lymphocytes % 13.6 L Monocytes % 4.5 Eosinophils % 0.4 Basophils % 0.7 Nucleated Red 0.0 Blood Cells % Immature 0.210 H Granulocytes # Neutrophils # 11.8 H Lymphocytes # 2.0 Monocytes # 0.7 Eosinophils # 0.1 Basophils # 0.1 Nucleated Red 0.0 Blood Cells # Prothrombin Time 13.1 Prothrombin Time 1.0 Ratio INR International 0.98 Normalized Ratio Activated 27.[address] Time Sodium Level 139 Potassium Level 4.9 Chloride Level 97 Carbon Dioxide 24 Level Anion Gap 18 H Blood Urea 39 H Nitrogen Creatinine 0.93 Est Glomerular Filtrat Rate mL/min Glucose Level 254 H Calcium Level 10.5 H Troponin I 0.032 Urine Color RIGO Urine Clarity CLOUDY A Urine pH 5.0 Urine Specific 1.026 [place] Urine Ketones TRACE A Urine Nitrite NEGATIVE Urine Bilirubin NEGATIVE Urine Urobilinogen 1+ H Urine Leukocyte NEGATIVE Esterase Urine Microscopic 92 H RBC Urine Microscopic 2 WBC Urine Bacteria FEW A Urine Hyaline FEW A Casts Urine Mucus FEW A Urine Hemoglobin 2+ H Urine Glucose 1+ H Urine Total 1+ H Protein Test 12/29/18 02:06 12/29/18 02:30 12/29/18 04:42 12/29/18 05:36 Blood Gas Specimen Blood arterial Source Arterial Blood 12/29/2018 2:10:12 Date Drawn AM Arterial Blood pH 7.266 *L (Temp corrected) Arterial Blood 35.5 pCO2 (Temp correct) Arterial Blood pO2 76.9 L (Temp corrected) Arterial Blood 15.8 L HCO3 Arterial Blood -10.3 L Base Excess Arterial Blood 92.8 L Oxygen Saturation Pérez Test N/A Arterial Blood Gas Right Brachial Puncture Site Arterial 0.3 Blood Carboxyhemog lobin Arterial Blood 0.4 Methemoglobin Blood Gas A-a O2 95.3 H Differential Oxyhemoglobin 92.2 L Percent Blood Gas 37.0 Temperature Blood Gas Modality NASAL CANNULA FiO2 30.0 Blood Gas Critical Kris DUFF MD Value Read Back Blood Gas Notified KM Whom Blood Gas Notified 12/29/2018 2:17:57 Time AM Lactic Acid Level 11.4 *H 11.7 *H D-Dimer 2398.07 H D-Dimer Comment Test 12/29/18 07:00 12/29/18 07:30 12/29/18 09:29 12/29/18 10:54 Blood Gas Specimen Blood arterial Source Arterial Blood 12/29/2018 8:40:55 Date Drawn AM Arterial Blood pH 7.354 (Temp corrected) Arterial Blood 32.2 L pCO2 (Temp correct) Arterial Blood pO2 108.2 H (Temp corrected) Arterial Blood 17.5 L HCO3 Arterial Blood -7.0 L Base Excess Arterial Blood 97.7 Oxygen Saturation Pérez Test ACCEPTAB Arterial Blood Gas Right Radial Puncture Site Arterial 0.3 Blood Carboxyhemog lobin Arterial Blood 0.3 Methemoglobin Blood Gas A-a O2 132.8 H Differential Oxyhemoglobin 97.1 Percent Blood Gas 37.0 Temperature Blood Gas Modality NASAL CANNULA FiO2 39.0 Blood Gas Notified DT Whom Blood Gas Notified 12/29/2018 8:55:38 Time AM Bedside Glucose 325 H 363 H 369 H Test 12/29/18 13:20 12/29/18 14:17 12/29/18 16:45 Bedside Glucose 377 H 378 H 261 H Medications Medication Current Medications Ondansetron HCl (Zofran Inj) 4 mg Q6H PRN IV NAUSEA AND/OR VOMITING; Start 12/29/18 at 03:30 Albuterol/ Ipratropium (Duoneb) 3 ml Q2H RESP THERAPY PRN NEB SHORTNESS OF BREATH; Start 12/29/18 at 03:30 Acetaminophen (Tylenol Liquid) 650 mg Q6H PRN PO PAIN LEVEL 1-3 OR FEVER; Start 12/29/18 at 03:30 Heparin Sodium (Porcine) (Heparin (5000 Units/1ml)) 5,000 unit Q12 SC Last administered on 12/29/18at 09:31; Admin Dose 5,000 UNIT; Start 12/29/18 at 09:00 Famotidine (Pepcid Iv) 20 mg BID IV Last administered on 12/29/18at 09:28; Admin Dose 20 MG; Start 12/29/18 at 09:00 Cefepime HCl 50 ml @ 100 mls/hr Q12 IVPB Last administered on 12/29/18at 13:19; Admin Dose 100 MLS/HR; Start 12/29/18 at 14:00 Vancomycin HCl (Vanco Iv Per Pharmacy) VANCOMYCIN PER PHARMACY PER PROTOCOL XX ; Start 12/29/18 at 14:00 Vancomycin HCl 250 ml @ 125 mls/hr Q12H IVPB Last administered on 12/29/18at 11:09; Admin Dose 125 MLS/HR; Start 12/29/18 at 10:00 Miscellaneous Information (*Rx Drug Level Order Reminder*) VANCOMYCIN TROUGH LEVEL 2100 ONCE XX ; Start 12/30/18 at 21:00; Stop 12/30/18 at 21:01 Norepinephrine 250 ml @ 3.75 mls/hr ONCE ONCE IV Last administered on 12/29/18at 06:29; Admin Dose 3.75 MLS/HR; Start 12/29/18 at 06:22; Stop 01/01/19 at 01:01 Ondansetron HCl (Zofran Inj) 4 mg Q4H PRN IV NAUSEA AND/OR VOMITING; Start 12/29/18 at 08:30 Albuterol/ Ipratropium (Duoneb) 2.4 ml Q4H RESP THERAPY HHN Last administered on 12/29/18at 17:54; Admin Dose 2.4 ML; Start 12/29/18 at 09:00 Insulin Aspart (Novolog Insulin Pen) NOVOLOG *MODERATE* ALGORI... Q4 SC Last administered on 12/29/18at 16:56; Admin Dose 8 UNIT; Start 12/29/18 at 09:00 Diagnostic Test (Pha) (Accu-Chek) 1 ea 02 XX ; Start 12/30/18 at 02:00 Miscellaneous Information 1 ea NOTE XX ; Start 12/29/18 at 09:00 Glucose (Glutose) 15 gm Q15M PRN PO DECREASED GLUCOSE; Start 12/29/18 at 09:00 Glucose (Glutose) 22.5 gm Q15M PRN PO DECREASED GLUCOSE; Start 12/29/18 at 09:00 Dextrose (D50w Syringe) 25 ml Q15M PRN IV DECREASED GLUCOSE; Start 12/29/18 at 09:00 Dextrose (D50w Syringe) 50 ml Q15M PRN IV DECREASED GLUCOSE; Start 12/29/18 at 09:00 Glucagon (Glucagen) 1 mg Q15M PRN IM DECREASED GLUCOSE; Start 12/29/18 at 09:00 Glucose (Glutose) 15 gm Q15M PRN BUCCAL DECREASED GLUCOSE; Start 12/29/18 at 09:00 Sodium Chloride 1,000 ml @ 75 mls/hr Q80H49S IV Last administered on 12/29/18at 17:09; Admin Dose 75 MLS/HR; Start 12/29/18 at 11:30 Atorvastatin Calcium (Lipitor) 40 mg HS GTB ; Start 12/29/18 at 21:00 Zinc Oxide (Desitin) 1 applic ONCE ONCE TOP ; Start 12/29/18 at 21:00; Stop 12/29/18 at 21:01 Insulin Glargine (Lantus) 15 units DAILY@2000 SC ; Start 12/29/18 at 20:00 LUCA CURTIS Dec 29, 2018 19:18
[2018-12-29] MEDS ORDERED: INSULIN GLARGINE [LANTus] (100 UNITS/ML) SYG SC SCH (20:00)
[2018-12-29] MEDS ORDERED: ZINC OXIDE 13% (DESITIN) CREAM 2 OZ TUBE TOP ONE (21:00)
[2018-12-29] MEDS: ATORVASTATIN 40 MG TAB GTB SCH (21:12)
[2018-12-30] VITALS (96 sets, daily range): BP systolic 75–150; BP diastolic 35–125; PULSE 94–149; RESP 18–29
[2018-12-30] MEDS: INSULIN ASPART [NOVOLOG] 3 ML PEN SC SCH ×6 (01:24→20:50)
[2018-12-30] MEDS: ACCU-CHEK XX SCH (01:25)
[2018-12-30] MEDS: ALBUTEROL/IPRATROPIUM (NEB) 3 ML AMP HHN SCH ×6 (02:55→21:08)
[2018-12-30] MEDS: SOD CHLORIDE 0.9% 1,000 ML IV SCH (08:56)
[2018-12-30] MEDS: FAMOTIDINE 20 MG INJ IV SCH ×2 (08:56→20:47)
[2018-12-30] MEDS: CEFEPIME 1GM/50 ML (PMX) 50 ML IVPB SCH ×2 (08:56→20:47)
[2018-12-30] MEDS: HEPARIN 5,000 UNIT/1 ML VIAL SC SCH ×2 (09:03→20:50)
[2018-12-30] MEDS: VANCOMYCIN 1 GM 250 ML IVPB SCH (09:58)
--- NOTE | 2018-12-30 11:05 | CONS ---
DATE OF ADMISSION: 12/29/2018 DATE OF CONSULTATION: CONSULTATION: Pulmonary. REASON FOR CONSULT: Hypoxemia and hypotension. HISTORY OF PRESENT ILLNESS: This is a 73-year-old gentleman, resident of [facility] facility came in for altered mental status, tachycardia, hypotension requiring vasopressor suppo rt and transferred to intensive care unit. The patient has a history of stroke with aphasia with sub sequent hemiplegia. He has had profuse diarrhea since this admission. PAST MEDICAL HISTORY: As above including CVA, hemiplegia, dysphagia with G-tube. MEDICATIONS: Per chart. ALLERGIES: NONE. SOCIAL HISTORY: Nonsmoker, no alcohol, no history of drug use. FAMILY HISTORY: Noncontributory. SYSTEMS REVIEW: A 12-point review of systems was negative other than that mentioned above. PHYSICAL EXAMINATION: GENERAL: Elderly-appearing gentleman, appears comfortable at rest, no acute distress. VITAL SIGNS: Currently afebrile, pulse is 110, blood pressure 122/52, O2 saturation 96% on room air. NECK: Supple. No JVD or lymphadenopathy. CARDIAC: S1, S2, no added sounds or murmurs. CHEST: Diminished air entry bilaterally. ABDOMEN: Soft, nontender. No guarding or rebound. EXTREMITIES: No cyanosis, clubbing, 1+ edema. NEUROLOGIC: Generalized weakness. LABORATORY DATA: White count 21.9, hemoglobin 10.1, platelets of 215. BUN 39, creatinine 0.79. D-d sean elevated at 2398. ABG: pH 7.35, pCO2 of 32, pO2 108. Microbiology: C. diff assay is preliminary negative. IMAGING: Chest x-ray shows no CHF or pneumonia. IMPRESSION AND PLAN: 1. Septic shock, questionable C. difficile colitis, pending further stool studies. 2. Prior history of cerebrovascular accident. 3. Dysphagia with G-tube. 4. Chronic encephalopathy. The patient will require: 1. Continued broad spectrum antibiotics. 2. Glycemic management. 3. Vasopressor support. 4. DVT and GI prophylaxis. Dictated By: MADELINE KRAUSE MD SV/DAXA Conf#: [id number] DID#: [id number] CC: JP THACKER MD;*EndCC*
--- NOTE | 2018-12-30 18:35 | PN ---
DATE: 12/30/2018 SUBJECTIVE: The patient is more responsive today. OBJECTIVE: VITAL SIGNS: Temperature 97.8, blood pressure 104/41, O2 sats 100% on FiO2 of 21%. GENERAL: The patient is still on pressor support. HEENT: Mild moderate pallor without cyanosis. CHEST: Diminished air entry bilaterally. ABDOMEN: Soft, nontender. EXTREMITIES: No edema. INPUT AND OUTPUT: 2592 input, output is 1630. LABORATORY DATA: WBC count 21.9, hematocrit 30 down from 42.6 yesterday, platelet count 215,000 with bandemia. Sodium 141, potassium 4.5, BUN 39, creatinine 0.79. Glucose was 250 at 16:51 hours. IMPRESSION: 1. Septic shock with healthcare-associated pneumonia with hypoxemic respiratory failure. 2. Diabetes mellitus type 2, uncontrolled. 3. Status post previous cerebrovascular accident with right hemiparesis. 4. Prior history of hypertension. 5. Hyperlipidemia. 6. Neurogenic dysphagia on G-tube feedings. PLAN: We will increase Lantus insulin. We will check procalcitonin levels. Continue vancomycin and cefepime for now. The patient does have leukemoid reaction and significant drop in hematocrit. We will also check stool for OB. We will request ID consultation with Dr. Montero. Dr. Krause's pulmonary consultation is greatly appreciated. Dictated By: JP THACKER MD SR/NTS Conf#: [id number] DID#: [id number] CC: MADELINE KRAUSE MD;*EndCC*
[2018-12-30] MEDS ORDERED: INSULIN GLARGINE [LANTus] (100 UNITS/ML) SYG SC SCH (20:00)
[2018-12-30] MEDS: ATORVASTATIN 40 MG TAB GTB SCH (20:47)
[2018-12-30] MEDS: PHENYLephrine 20MG IN 250 ML 250 ML IV SCH (22:40)
[2018-12-30] MEDS ORDERED: VANCOMYCIN 750 MG (PMX) 250 ML IVPB SCH (23:00)
[2018-12-30] MEDS ORDERED: DILTIAZEM 25 MG INJ IV PRN (23:30)
[2018-12-31] VITALS (93 sets, daily range): BP systolic 76–130; BP diastolic 41–83; PULSE 79–143; RESP 12–32
[2018-12-31] MEDS: SOD CHLORIDE 0.9% 1,000 ML IV SCH ×2 (00:03→17:33)
[2018-12-31] MEDS: ALBUTEROL/IPRATROPIUM (NEB) 3 ML AMP HHN SCH ×6 (01:00→21:00)
[2018-12-31] MEDS ORDERED: DILTIAZEM-D5W 125MG/125ML DRIP 125 ML IV SCH (01:30)
[2018-12-31] MEDS: INSULIN ASPART [NOVOLOG] 3 ML PEN SC SCH ×6 (01:54→21:38)
[2018-12-31] MEDS: ACCU-CHEK XX SCH (01:56)
[2018-12-31] MEDS: PHENYLephrine 20MG IN 250 ML 250 ML IV SCH (04:47)
--- NOTE | 2018-12-31 07:15 | CONS ---
Assessment/Plan Assessment/Plan Hospital Course (Demo Recall) 1) sepsis, unclear etiology diarrhea but neg c.dif and neg stool cx to date pt has some nodular densities and tree in bud formation could have pneumonitis but no F or cough is present alk phos is mildly elevated urine does not show significant pyuria and urine cx is NGTD urine cx from outside when he had a neg u/a had a very sensitive e.coli present to change antibiotics to merrem/doxy, to cover atypicals in lung as well as anaerobes as pt is high risk for aspiration get RUQ u/s to verify the GB is ok and not the source for infection if diarrhea persists to get abd/pelv CT start probiotics 2) lung nodules with tree-in bud formation unable to get sputum cx change antibiotics to doxy/merrem to cover atypicals and anaerobes check ESR, HARESH, ANCA check beta d glucan (doubt fungal disease but will check) atypical mycobacteria is possible but would not explain his septic picture, to check quant TB gold though pt will need follow chest CT in a few months 3) diarrhea c.dif was neg, stool cx is NGTD doubt he has a parasitic infection start probiotic if abd u/s is neg, to consider ct abd if diarrhea persists 4) CVA with R sided hemiplegia 5) elevated alk phos check RUQ u/s 6) DM improved sugars here 7) rapid a-fib pt is on cardizem drip Consultation Date/Type/Reason Admit Date/Time Date of Consultation: Dec 31, 2018 Type of Consult ID Date/Time of Note DATE: 12/31/18 TIME: 07:02 Hx of Present Illness pt was admitted two days ago due to AMS and low B/P he is unable to give any hx due to dementia and multiple CVA's with R hemiparesis pt is having diarrhea since his admission no V, tolerating TF he is on a pressor, phenylephrine at 60mcg nurse reports no cough Past Medical History DM, CVA, dementia, HTN, hyperlipidemia Medical History: other Medications Current Medications Ondansetron HCl (Zofran Inj) 4 mg Q6H PRN IV NAUSEA AND/OR VOMITING; Start 12/29/18 at 03:30 Albuterol/ Ipratropium (Duoneb) 3 ml Q2H RESP THERAPY PRN NEB SHORTNESS OF BREATH; Start 12/29/18 at 03:30 Acetaminophen (Tylenol Liquid) 650 mg Q6H PRN PO PAIN LEVEL 1-3 OR FEVER; Start 12/29/18 at 03:30 Heparin Sodium (Porcine) (Heparin (5000 Units/1ml)) 5,000 unit Q12 SC Last administered on 12/30/18at 20:50; Admin Dose 5,000 UNIT; Start 12/29/18 at 09:00 Famotidine (Pepcid Iv) 20 mg BID IV Last administered on 12/30/18 20:47; Admin Dose 20 MG; Start 12/29/18 at 09:00 Cefepime HCl 50 ml @ 100 mls/hr Q12 IVPB Last administered on 12/30/18 20:47; Admin Dose 100 MLS/HR; Start 12/29/18 at 14:00 Vancomycin HCl (Vanco Iv Per Pharmacy) VANCOMYCIN PER PHARMACY PER PROTOCOL XX ; Start 12/29/18 at 14:00 Ondansetron HCl (Zofran Inj) 4 mg Q4H PRN IV NAUSEA AND/OR VOMITING; Start 12/29/18 at 08:30 Albuterol/ Ipratropium (Duoneb) 2.4 ml Q4H RESP THERAPY HHN Last administered on 12/30/18 21:08; Admin Dose 2.4 ML; Start 12/29/18 at 09:00 Insulin Aspart (Novolog Insulin Pen) NOVOLOG *MODERATE* ALGORI... Q4 SC Last administered on 12/31/18 04:47; Admin Dose 4 UNIT; Start 12/29/18 at 09:00 Diagnostic Test (Pha) (Accu-Chek) 1 ea 02 XX Last administered on 12/31/18at 01:56; Admin Dose 1 EA; Start 12/30/18 at 02:00 Miscellaneous Information 1 ea NOTE XX ; Start 12/29/18 at 09:00 Glucose (Glutose) 15 gm Q15M PRN PO DECREASED GLUCOSE; Start 12/29/18 at 09:00 Glucose (Glutose) 22.5 gm Q15M PRN PO DECREASED GLUCOSE; Start 12/29/18 at 09:00 Dextrose (D50w Syringe) 25 ml Q15M PRN IV DECREASED GLUCOSE; Start 12/29/18 at 09:00 Dextrose (D50w Syringe) 50 ml Q15M PRN IV DECREASED GLUCOSE; Start 12/29/18 at 09:00 Glucagon (Glucagen) 1 mg Q15M PRN IM DECREASED GLUCOSE; Start 12/29/18 at 09:00 Glucose (Glutose) 15 gm Q15M PRN BUCCAL DECREASED GLUCOSE; Start 12/29/18 at 09:00 Sodium Chloride 1,000 ml @ 75 mls/hr [id number] IV Last administered on 12/31/18 00:03; Admin Dose 75 MLS/HR; Start 12/29/18 at 11:30 Atorvastatin Calcium (Lipitor) 40 mg HS GTB Last administered on 12/30/18 20:47; Admin Dose 40 MG; Start 12/29/18 at 21:00 Insulin Glargine (Lantus) 20 units DAILY@2000 SC Last administered on 12/30/18 20:50; Admin Dose 20 UNITS; Start 12/30/18 at 20:00 Phenylephrine HCl 250 ml @ 75 mls/hr TITRATE IV Last administered on 12/31/18 04:47; Admin Dose 45 MLS/HR; Start 12/30/18 at 22:30 Vancomycin/Sodium Chloride 250 ml @ 125 mls/hr Q12H IVPB Last administered on 12/30/18 23:58; Admin Dose 125 MLS/HR; Start 12/30/18 at 23:00 Miscellaneous Information (*Rx Drug Level Order Reminder*) ARTEMIOO TR ON 01/01/19 @ 930 ONCE ONCE XX ; Start 01/01/19 at 09:30; Stop 01/01/19 at 09:31 Diltiazem HCl (Cardizem Iv) 5 mg Q4H PRN IV NOTE Last administered on 12/30/18at 23:56; Admin Dose 5 MG; Start 12/30/18 at 23:30 Diltiazem HCl 125 ml @ 5 mls/hr TITRATE IV Last administered on 12/31/18 01:42; Admin Dose 5 MLS/HR; Start 12/31/18 at 01:30 Allergies: Coded Allergies: No Known Allergy (Unverified , 12/29/18) Past Surgical History Past Surgical Hx: other Social History Alcohol Use: none Smoking Status: Never smoker Drug Use: none Exam/Review of Systems Exam Vitals Vital Signs Date Temp Pulse Resp B/P (MAP) Pulse Ox O2 O2 Flow FiO2 Time Delivery Rate 12/31/18 83 25 119/59 100 Room Air 06:00 (79) 12/31/18 97.6 04:00 12/30/18 21 21:08 12/29/18 2.0 17:35 Intake and Output 12/30/18 12/30/18 12/31/18 1515:00 23:00 07:00 IntakeIntake Total 1344.376 ml 1211.414 ml 1590 ml OutputOutput Total 480 ml 470 ml 440 ml BalanceBalance 864.376 ml 741.414 ml 1150 ml Exam opens eyes spontaneously Constitutional: non-verbal Eyes: nl sclera Respiratory: clear to auscultation Cardiovascular: regular rate and rhythm Gastrointestinal: soft, non-tender, other (g-tube site has some dull redness but not warm to touch, only where g-tube ring touches the skin) Results Result Diagram: 12/31/18 0500 12/31/18 0500 Results 24hrs Laboratory Tests Test 12/30/18 09:02 12/30/18 16:51 12/30/18 20:46 12/30/18 21:12 Bedside Glucose 205 250 H 178 Vancomycin Level 19.1 Trough Test 12/31/18 01:44 12/31/18 04:45 12/31/18 05:00 12/31/18 05:45 Bedside Glucose 254 H 220 White Blood Count 20.8 H Red Blood Count 3.39 L Hemoglobin 10.2 L Hematocrit 31.0 L Mean Corpuscular 91.4 Volume Mean Corpuscular 30.1 Hemoglobin Mean Corpuscular 32.9 Hemoglobin Concent Red Cell Distribution 15.6 H Width Platelet Count 215 Mean Platelet Volume 11.3 H Immature Granulocytes 2.400 H % Neutrophils % Lymphocytes % Monocytes % Eosinophils % Basophils % Nucleated Red Blood 0.0 Cells % Immature Granulocytes 0.500 H # Neutrophils # Lymphocytes # Monocytes # Eosinophils # Basophils # Nucleated Red Blood Cells # Sodium Level 141 Potassium Level 4.4 Chloride Level 112 H Carbon Dioxide Level 23 Anion Gap 6 Blood Urea Nitrogen 32 H Creatinine 0.63 Est Glomerular Filtrat Rate mL/min Glucose Level 200 Calcium Level 8.4 Total Bilirubin 0.5 Direct Bilirubin 0.00 Indirect Bilirubin 0.5 Aspartate Amino 41 Transf (AST/SGOT) Alanine 32 Aminotransferase (ALT /SGPT) Alkaline Phosphatase 125 H Total Protein 5.6 L Albumin 2.7 L Globulin 2.90 Albumin/Globulin 0.93 Ratio Lab Scanned Report REFERENCE LAB Imaging Imaging CT chest 12/29 IMPRESSION: 1. No evidence of a pulmonary thromboembolism. 2. Widespread tree in bud pattern involving the bilateral upper, right middle, bilateral lower lobes with diagnostic considerations including bronchiolitis and aspiration bronchopneumonia. 3. Scattered bilateral nodularity with nodules measuring up to 8 mm in the left upper lobe. Findings are likely infectious or inflammatory etiology, however other considerations are not excluded. 4. Percutaneous gastrostomy tube in satisfactory position. Medications Medication Current Medications Ondansetron HCl (Zofran Inj) 4 mg Q6H PRN IV NAUSEA AND/OR VOMITING; Start 12/29/18 at 03:30 Albuterol/ Ipratropium (Duoneb) 3 ml Q2H RESP THERAPY PRN NEB SHORTNESS OF BREATH; Start 12/29/18 at 03:30 Acetaminophen (Tylenol Liquid) 650 mg Q6H PRN PO PAIN LEVEL 1-3 OR FEVER; Start 12/29/18 at 03:30 Heparin Sodium (Porcine) (Heparin (5000 Units/1ml)) 5,000 unit Q12 SC Last administered on 12/30/18at 20:50; Admin Dose 5,000 UNIT; Start 12/29/18 at 09:00 Famotidine (Pepcid Iv) 20 mg BID IV Last administered on 12/30/18at 20:47; Admin Dose 20 MG; Start 12/29/18 at 09:00 Cefepime HCl 50 ml @ 100 mls/hr Q12 IVPB Last administered on 12/30/18at 20:47; Admin Dose 100 MLS/HR; Start 12/29/18 at 14:00 Vancomycin HCl (Vanco Iv Per Pharmacy) VANCOMYCIN PER PHARMACY PER PROTOCOL XX ; Start 12/29/18 at 14:00 Ondansetron HCl (Zofran Inj) 4 mg Q4H PRN IV NAUSEA AND/OR VOMITING; Start 12/29/18 at 08:30 Albuterol/ Ipratropium (Duoneb) 2.4 ml Q4H RESP THERAPY HHN Last administered on 12/30/18at 21:08; Admin Dose 2.4 ML; Start 12/29/18 at 09:00 Insulin Aspart (Novolog Insulin Pen) NOVOLOG *MODERATE* ALGORI... Q4 SC Last administered on 12/31/18 04:47; Admin Dose 4 UNIT; Start 12/29/18 at 09:00 Diagnostic Test (Pha) (Accu-Chek) 1 ea 02 XX Last administered on 12/31/18at 01:56; Admin Dose 1 EA; Start 12/30/18 at 02:00 Miscellaneous Information 1 ea NOTE XX ; Start 12/29/18 at 09:00 Glucose (Glutose) 15 gm Q15M PRN PO DECREASED GLUCOSE; Start 12/29/18 at 09:00 Glucose (Glutose) 22.5 gm Q15M PRN PO DECREASED GLUCOSE; Start 12/29/18 at 09:00 Dextrose (D50w Syringe) 25 ml Q15M PRN IV DECREASED GLUCOSE; Start 12/29/18 at 09:00 Dextrose (D50w Syringe) 50 ml Q15M PRN IV DECREASED GLUCOSE; Start 12/29/18 at 09:00 Glucagon (Glucagen) 1 mg Q15M PRN IM DECREASED GLUCOSE; Start 12/29/18 at 09:00 Glucose (Glutose) 15 gm Q15M PRN BUCCAL DECREASED GLUCOSE; Start 12/29/18 at 09:00 Sodium Chloride 1,000 ml @ 75 mls/hr [id number] IV Last administered on 12/31/18at 00:03; Admin Dose 75 MLS/HR; Start 12/29/18 at 11:30 Atorvastatin Calcium (Lipitor) 40 mg HS GTB Last administered on 12/30/18at 20:47; Admin Dose 40 MG; Start 12/29/18 at 21:00 Insulin Glargine (Lantus) 20 units DAILY@2000 SC Last administered on 12/30/18at 20:50; Admin Dose 20 UNITS; Start 12/30/18 at 20:00 Phenylephrine HCl 250 ml @ 75 mls/hr TITRATE IV Last administered on 12/31/18 04:47; Admin Dose 45 MLS/HR; Start 12/30/18 at 22:30 Vancomycin/Sodium Chloride 250 ml @ 125 mls/hr Q12H IVPB Last administered on 12/30/18at 23:58; Admin Dose 125 MLS/HR; Start 12/30/18 at 23:00 Miscellaneous Information (*Rx Drug Level Order Reminder*) MARYAN DOUGLAS ON 01/01/19 @ 930 ONCE ONCE XX ; Start 01/01/19 at 09:30; Stop 01/01/19 at 09:31 Diltiazem HCl (Cardizem Iv) 5 mg Q4H PRN IV NOTE Last administered on 12/30/18at 23:56; Admin Dose 5 MG; Start 12/30/18 at 23:30 Diltiazem HCl 125 ml @ 5 mls/hr TITRATE IV Last administered on 12/31/18at 01:42; Admin Dose 5 MLS/HR; Start 12/31/18 at 01:30 BORIS WATSON MD Dec 31, 2018 07:12
[2018-12-31] MEDS: FAMOTIDINE 20 MG INJ IV SCH ×2 (09:24→21:03)
[2018-12-31] MEDS: DOXYCYCLINE 100 MG TAB GTB SCH ×2 (09:25→21:05)
[2018-12-31] MEDS: L ACIDOPHIL/B LACTIS/B LONGUM CAPSULE PO SCH ×2 (09:25→21:05)
[2018-12-31] MEDS: HEPARIN 5,000 UNIT/1 ML VIAL SC SCH ×2 (09:26→21:04)
--- NOTE | 2018-12-31 09:38 | CONS ---
Assessment/Plan Assessment/Plan Assessment/Plan (Daily) Patient is currently on phenylephrine drip at 50 mics per minute. Off Cardizem drip. Assessment and recommendations; 1. Patient admitted with diarrhea with hypotension and A. fib with RVR. Currently in sinus rhythm, off Cardizem drip. 2. C. difficile is negative and stool. 3. No other obvious source of infection. 4. Apparent dementia. 5. Chronic dysphagia, status post G-tube placement in the past. Continue current supportive care. Wean down phenylephrine drip as tolerated. Consultation Date/Type/Reason Admit Date/Time Dec 29, 2018 at 01:35 Initial Consult Date 12/31/18 Type of Consult Pulmonary/critical care Patient condition is stable. Patient in sinus rhythm, off Cardizem drip. Has remained hemodynamically stable. General exam; elderly male, awake but noncommunicative. Occasionally tracks with eyes. Currently no distress. On room air. Reason for Consultation H EENT exam; supple neck, no JVD. No lymphadenopathy. Midline trachea. No thyromegaly. Chest exam; clear to auscultation. S1-S2 audible, no murmurs. Regular rhythm. Abdomen exam; soft, no organomegaly. Nondistended. G-tube in place. Bowel sounds audible. Extremity exam; no peripheral edema clubbing. ADMISSION LIAISON exam; patient awake and somewhat responsive. Date/Time of Note DATE: 12/31/18 TIME: 09:35 Exam/Review of Systems Exam Vitals Vital Signs Date Temp Pulse Resp B/P (MAP) Pulse Ox O2 O2 Flow FiO2 Time Delivery Rate 12/31/18 86 22 111/58 98 08:45 (75) 12/31/18 Room Air 08:30 12/31/18 21 08:17 12/31/18 97.6 08:00 12/29/18 2.0 17:35 Intake and Output 12/30/18 12/30/18 12/31/18 1515:00 23:00 07:00 IntakeIntake Total 1344.376 ml 1211.414 ml 1590 ml OutputOutput Total 480 ml 470 ml 440 ml BalanceBalance 864.376 ml 741.414 ml 1150 ml Results Result Diagram: 12/31/18 0500 12/31/18 0500 Results 24hrs Laboratory Tests Test 12/30/18 16:51 12/30/18 20:46 12/30/18 21:12 12/31/18 01:44 Bedside Glucose 250 H 178 254 H Vancomycin Level 19.1 Trough Test 12/31/18 04:45 12/31/18 05:00 12/31/18 05:45 12/31/18 09:24 Bedside Glucose 220 188 White Blood Count 20.8 H Red Blood Count 3.39 L Hemoglobin 10.2 L Hematocrit 31.0 L Mean Corpuscular 91.4 Volume Mean Corpuscular 30.1 Hemoglobin Mean Corpuscular 32.9 Hemoglobin Concent Red Cell Distribution 15.6 H Width Platelet Count 215 Mean Platelet Volume 11.3 H Immature Granulocytes 2.400 H % Neutrophils % Segmented Neutrophils 54 % (Manual) Band Neutrophils % 34 H (Manual) Lymphocytes % Lymphocytes % 5 L (Manual) Monocytes % Monocytes % (Manual) 7 Eosinophils % Basophils % Nucleated Red Blood 0.0 Cells % Immature Granulocytes 0.500 H # Neutrophils # Neutrophils # 12.7 H (Manual) Band Neutrophils # 7.0 H Lymphocytes (Manual) 1.0 Lymphocytes # Monocytes # Monocytes # (Manual) 1.4 H Eosinophils # Basophils # Nucleated Red Blood Cells # Platelet Estimate NORMAL Poikilocytosis 3+ Anisocytosis 2+ Microcytosis 1+ Sodium Level 141 Potassium Level 4.4 Chloride Level 112 H Carbon Dioxide Level 23 Anion Gap 6 Blood Urea Nitrogen 32 H Creatinine 0.63 Est Glomerular Filtrat Rate mL/min Glucose Level 200 Calcium Level 8.4 Total Bilirubin 0.5 Direct Bilirubin 0.00 Indirect Bilirubin 0.5 Aspartate Amino 41 Transf (AST/SGOT) Alanine 32 Aminotransferase (ALT /SGPT) Alkaline Phosphatase 125 H Total Protein 5.6 L Albumin 2.7 L Globulin 2.90 Albumin/Globulin 0.93 Ratio Procalcitonin 12.08 H Lab Scanned Report REFERENCE LAB Medications Medication Current Medications Ondansetron HCl (Zofran Inj) 4 mg Q6H PRN IV NAUSEA AND/OR VOMITING; Start 12/29/18 at 03:30 Albuterol/ Ipratropium (Duoneb) 3 ml Q2H RESP THERAPY PRN NEB SHORTNESS OF BREATH; Start 12/29/18 at 03:30 Acetaminophen (Tylenol Liquid) 650 mg Q6H PRN PO PAIN LEVEL 1-3 OR FEVER; Start 12/29/18 at 03:30 Heparin Sodium (Porcine) (Heparin (5000 Units/1ml)) 5,000 unit Q12 SC Last administered on 12/31/18 09:26; Admin Dose 5,000 UNIT; Start 12/29/18 at 09:00 Famotidine (Pepcid Iv) 20 mg BID IV Last administered on 12/31/18 09:24; Admin Dose 20 MG; Start 12/29/18 at 09:00 Ondansetron HCl (Zofran Inj) 4 mg Q4H PRN IV NAUSEA AND/OR VOMITING; Start 12/29/18 at 08:30 Albuterol/ Ipratropium (Duoneb) 2.4 ml Q4H RESP THERAPY HHN Last administered on 12/31/18 08:15; Admin Dose 2.4 ML; Start 12/29/18 at 09:00 Insulin Aspart (Novolog Insulin Pen) NOVOLOG *MODERATE* ALGORI... Q4 SC Last administered on 12/31/18 09:26; Admin Dose 4 UNIT; Start 12/29/18 at 09:00 Diagnostic Test (Pha) (Accu-Chek) 1 ea 02 XX Last administered on 12/31/18at 01:56; Admin Dose 1 EA; Start 12/30/18 at 02:00 Miscellaneous Information 1 ea NOTE XX ; Start 12/29/18 at 09:00 Glucose (Glutose) 15 gm Q15M PRN PO DECREASED GLUCOSE; Start 12/29/18 at 09:00 Glucose (Glutose) 22.5 gm Q15M PRN PO DECREASED GLUCOSE; Start 12/29/18 at 09:00 Dextrose (D50w Syringe) 25 ml Q15M PRN IV DECREASED GLUCOSE; Start 12/29/18 at 09:00 Dextrose (D50w Syringe) 50 ml Q15M PRN IV DECREASED GLUCOSE; Start 12/29/18 at 09:00 Glucagon (Glucagen) 1 mg Q15M PRN IM DECREASED GLUCOSE; Start 12/29/18 at 09:00 Glucose (Glutose) 15 gm Q15M PRN BUCCAL DECREASED GLUCOSE; Start 12/29/18 at 09:00 Sodium Chloride 1,000 ml @ 75 mls/hr [id number] IV Last administered on 12/31/18at 00:03; Admin Dose 75 MLS/HR; Start 12/29/18 at 11:30 Atorvastatin Calcium (Lipitor) 40 mg HS GTB Last administered on 12/30/18 20:47; Admin Dose 40 MG; Start 12/29/18 at 21:00 Insulin Glargine (Lantus) 20 units DAILY@2000 SC Last administered on 12/30/18 20:50; Admin Dose 20 UNITS; Start 12/30/18 at 20:00 Phenylephrine HCl 250 ml @ 75 mls/hr TITRATE IV Last administered on 12/31/18 04:47; Admin Dose 45 MLS/HR; Start 12/30/18 at 22:30 Diltiazem HCl (Cardizem Iv) 5 mg Q4H PRN IV NOTE Last administered on 12/30/18 23:56; Admin Dose 5 MG; Start 12/30/18 at 23:30 Diltiazem HCl 125 ml @ 5 mls/hr TITRATE IV Last administered on 12/31/18 01:42; Admin Dose 5 MLS/HR; Start 12/31/18 at 01:30 Meropenem/Sodium Chloride 50 ml @ 100 mls/hr Q8 IVPB ; Start 12/31/18 at 14:00 Doxycycline Hyclate (Vibramycin) 100 mg BID GTB Last administered on 12/31/18 09:25; Admin Dose 100 MG; Start 12/31/18 at 09:00 Lactobacillus Acidophilus (Florajen3 Capsule) 1 each BID PO Last administered on 12/31/18 09:25; Admin Dose 1 EACH; Start 12/31/18 at 09:00 BILL ARROYO Dec 31, 2018 09:38
[2018-12-31] MEDS ORDERED: PHENYLephrine 20MG IN 250 ML 250 ML IV SCH ×2 (10:30→12:30)
[2018-12-31] MEDS: MEROPENEM 1 GM/50ML(PMX) 50 ML IVPB SCH ×2 (13:13→21:45)
--- NOTE | 2018-12-31 13:26 | PN ---
DATE: 12/31/2018 SUBJECTIVE: The patient is presently lethargic. PHYSICAL EXAMINATION: VITAL SIGNS: Temperature 97.6, blood pressure 102/49 on Mk-Synephrine drip. The patient was in Saeid b with rapid ventricular response, converted after starting on a Cardizem drip. HEENT: Mild pallor with cyanosis. CHEST: Clear anteriorly. HEART: S1, S2, no definite gallops. ABDOMEN: Soft, nontender, no hepatosplenomegaly. EXTREMITIES: No edema. LABORATORY DATA: WBC count 20.8, hematocrit 31, platelet count 215,000. Sodium 141, potassium 4.4, BUN 32, creatinine 0.63. Procalcitonin is 12.08. Glucose levels 220, 200 and 188. IMPRESSION: 1. Septic shock with healthcare-associated pneumonia with hypoxemic respiratory failure. 2. Atrial fibrillation with rapid ventricular response. The patient converted to normal sinus rhyth m with a Cardizem drip. 3. Diabetes mellitus type 2, uncontrolled. 4. Status post cerebrovascular accident with right hemiparesis. 5. Hypertension. 6. Hyperlipidemia. 7. Neurogenic dysphagia on G-tube feedings. Dr. Montero' ID consultation and recommendation greatly appreciated. PLAN: Will continue IV antibiotics, pulmonary support. Adjust Lantus insulin dosage and monitor. Dictated By: JP THACKER MD SR/DAXA Conf#: [id number] DID#: [id number]
[2018-12-31] MEDS: INSULIN GLARGINE [LANTus] (100 UNITS/ML) SYG SC SCH (20:09)
[2018-12-31] MEDS: ATORVASTATIN 40 MG TAB GTB SCH (21:06)
[2019-01-01] VITALS (57 sets, daily range): BP systolic 86–126; BP diastolic 45–81; PULSE 78–93; RESP 12–28
[2019-01-01] MEDS: INSULIN ASPART [NOVOLOG] 3 ML PEN SC SCH ×6 (01:00→20:37)
[2019-01-01] MEDS: ALBUTEROL/IPRATROPIUM (NEB) 3 ML AMP HHN SCH ×6 (01:36→20:13)
[2019-01-01] MEDS: ACCU-CHEK XX SCH (02:00)
[2019-01-01] MEDS: MEROPENEM 1 GM/50ML(PMX) 50 ML IVPB SCH ×3 (05:34→22:27)
[2019-01-01] MEDS: SOD CHLORIDE 0.9% 1,000 ML IV SCH ×2 (05:34→07:50)
--- NOTE | 2019-01-01 06:24 | CONS ---
Assessment/Plan Assessment/Plan Hospital Course (Demo Recall) 1) sepsis, unclear etiology diarrhea but neg c.dif and neg stool cx to date pt has some nodular densities and tree in bud formation could have pneumonitis but no F or cough is present alk phos is mildly elevated urine does not show significant pyuria and urine cx is NGTD urine cx from outside when he had a neg u/a had a very sensitive e.coli present to change antibiotics to merrem/doxy, to cover atypicals in lung as well as anaerobes as pt is high risk for aspiration get RUQ u/s to verify the GB is ok and not the source for infection if diarrhea persists to get abd/pelv CT start probiotics 01/01 - improved WBC but with abd pain and pus like material in stool to order abd/pelv CT with oral contrast urine cx was neg abd u/s did not show gallstones and only mildly thickened GB wall, no GB distension 2) lung nodules with tree-in bud formation unable to get sputum cx change antibiotics to doxy/merrem to cover atypicals and anaerobes check ESR, HARESH, ANCA check beta d glucan (doubt fungal disease but will check) atypical mycobacteria is possible but would not explain his septic picture, to check quant TB gold though pt will need follow chest CT in a few months 01/01 - continue with doxy/merrem for possible aspiration pneumonia and HCAP 3) diarrhea c.dif was neg, stool cx is NGTD doubt he has a parasitic infection start probiotic if abd u/s is neg, to consider ct abd if diarrhea persists 01/01 - to get CT abd/pelv 4) CVA with R sided hemiplegia 5) elevated alk phos check RUQ u/s 01/01 - contracted GB, no stone on u/s 6) DM improved sugars here 7) rapid a-fib pt is on cardizem drip Consultation Date/Type/Reason Admit Date/Time Dec 29, 2018 at 01:35 Initial Consult Date 12/31/18 Type of Consult ID Date/Time of Note DATE: 01/01/19 TIME: 06:18 24 HR Interval Summary Free Text/Dictation pt more responsive this a.m. still with smelly loose stool no V occasional cough pt states he has abd pain Exam/Review of Systems Exam Vitals Vital Signs Date Temp Pulse Resp B/P (MAP) Pulse Ox O2 O2 Flow FiO2 Time Delivery Rate 01/01/19 78 20 100 21 04:46 01/01/19 123/57 Room Air 04:45 (79) 01/01/19 97.9 00:00 12/29/18 2.0 17:35 Intake and Output 12/31/18 12/31/18 01/01/19 1515:00 23:00 07:00 IntakeIntake Total 977.5 ml 1115 ml 1065 ml OutputOutput Total 615 ml 460 ml 255 ml BalanceBalance 362.5 ml 655 ml 810 ml Constitutional: alert Eyes: nl sclera ENMT: other (pt refused to open mouth) Respiratory: clear to auscultation Cardiovascular: regular rate and rhythm Gastrointestinal: other (somewhat firm abd with mild diffuse tenderness) Results Result Diagram: 01/01/19 0430 01/01/19 0430 Results 24hrs Laboratory Tests Test 12/31/18 09:24 12/31/18 13:11 12/31/18 17:34 12/31/18 20:06 Bedside Glucose 188 113 109 156 Test 12/31/18 21:36 01/01/19 04:30 01/01/19 05:26 01/01/19 05:46 Bedside Glucose 160 203 White Blood Count 12.6 #H Red Blood Count 3.23 L Hemoglobin 9.5 L Hematocrit 29.0 L Mean Corpuscular 89.8 Volume Mean Corpuscular 29.4 Hemoglobin Mean Corpuscular 32.8 Hemoglobin Concent Red Cell Distribution 15.4 H Width Platelet Count 183 Mean Platelet Volume 11.2 H Immature Granulocytes 0.600 H % Neutrophils % Lymphocytes % Monocytes % Eosinophils % Basophils % Nucleated Red Blood 0.0 Cells % Immature Granulocytes 0.070 H # Neutrophils # Lymphocytes # Monocytes # Eosinophils # Basophils # Nucleated Red Blood Cells # Sodium Level 140 Potassium Level 4.0 Chloride Level 112 H Carbon Dioxide Level 23 Anion Gap 5 Blood Urea Nitrogen 21 #H Creatinine 0.58 L Est Glomerular Filtrat Rate mL/min Glucose Level 158 Calcium Level 8.3 L Total Bilirubin 0.4 Direct Bilirubin 0.00 Indirect Bilirubin 0.4 Aspartate Amino 32 Transf (AST/SGOT) Alanine 32 Aminotransferase (ALT /SGPT) Alkaline Phosphatase 116 Total Protein 5.4 L Albumin 2.5 L Globulin 2.90 Albumin/Globulin 0.86 Ratio Lab Scanned Report REFERENCE LAB Medications Medication Current Medications Ondansetron HCl (Zofran Inj) 4 mg Q6H PRN IV NAUSEA AND/OR VOMITING; Start 12/29/18 at 03:30 Albuterol/ Ipratropium (Duoneb) 3 ml Q2H RESP THERAPY PRN NEB SHORTNESS OF BREATH; Start 12/29/18 at 03:30 Acetaminophen (Tylenol Liquid) 650 mg Q6H PRN PO PAIN LEVEL 1-3 OR FEVER; Start 12/29/18 at 03:30 Heparin Sodium (Porcine) (Heparin (5000 Units/1ml)) 5,000 unit Q12 SC Last administered on 12/31/18at 21:04; Admin Dose 5,000 UNIT; Start 12/29/18 at 09:00 Famotidine (Pepcid Iv) 20 mg BID IV Last administered on 12/31/18at 21:03; Admin Dose 20 MG; Start 12/29/18 at 09:00 Ondansetron HCl (Zofran Inj) 4 mg Q4H PRN IV NAUSEA AND/OR VOMITING; Start 12/29/18 at 08:30 Albuterol/ Ipratropium (Duoneb) 2.4 ml Q4H RESP THERAPY HHN Last administered on 01/01/19at 04:46; Admin Dose 2.4 ML; Start 12/29/18 at 09:00 Insulin Aspart (Novolog Insulin Pen) NOVOLOG *MODERATE* ALGORI... Q4 SC Last administered on 01/01/19at 05:31; Admin Dose 4 UNIT; Start 12/29/18 at 09:00 Diagnostic Test (Pha) (Accu-Chek) 1 ea 02 XX Last administered on 12/31/18at 01:56; Admin Dose 1 EA; Start 12/30/18 at 02:00 Miscellaneous Information 1 ea NOTE XX ; Start 12/29/18 at 09:00 Glucose (Glutose) 15 gm Q15M PRN PO DECREASED GLUCOSE; Start 12/29/18 at 09:00 Glucose (Glutose) 22.5 gm Q15M PRN PO DECREASED GLUCOSE; Start 12/29/18 at 09:00 Dextrose (D50w Syringe) 25 ml Q15M PRN IV DECREASED GLUCOSE; Start 12/29/18 at 09:00 Dextrose (D50w Syringe) 50 ml Q15M PRN IV DECREASED GLUCOSE; Start 12/29/18 at 09:00 Glucagon (Glucagen) 1 mg Q15M PRN IM DECREASED GLUCOSE; Start 12/29/18 at 09:00 Glucose (Glutose) 15 gm Q15M PRN BUCCAL DECREASED GLUCOSE; Start 12/29/18 at 09:00 Sodium Chloride 1,000 ml @ 75 mls/hr [id number] IV Last administered on 01/01/19 05:34; Admin Dose 75 MLS/HR; Start 12/29/18 at 11:30 Atorvastatin Calcium (Lipitor) 40 mg HS GTB Last administered on 12/31/18 21:06; Admin Dose 40 MG; Start 12/29/18 at 21:00 Diltiazem HCl (Cardizem Iv) 5 mg Q4H PRN IV NOTE Last administered on 12/30/18 23:56; Admin Dose 5 MG; Start 12/30/18 at 23:30 Diltiazem HCl 125 ml @ 5 mls/hr TITRATE IV Last administered on 12/31/18 01:42; Admin Dose 5 MLS/HR; Start 12/31/18 at 01:30 Meropenem/Sodium Chloride 50 ml @ 100 mls/hr Q8 IVPB Last administered on 01/01/19 05:34; Admin Dose 100 MLS/HR; Start 12/31/18 at 14:00 Doxycycline Hyclate (Vibramycin) 100 mg BID GTB Last administered on 12/31/18 21:05; Admin Dose 100 MG; Start 12/31/18 at 09:00 Lactobacillus Acidophilus (Florajen3 Capsule) 1 each BID PO Last administered on 12/31/18 21:05; Admin Dose 1 EACH; Start 12/31/18 at 09:00 Phenylephrine HCl 250 ml @ 0 mls/hr IV IV Last administered on 12/31/18 12:49; Admin Dose 22.5 MLS/HR; Start 12/31/18 at 12:30 Insulin Glargine (Lantus) 23 units DAILY@2000 SC Last administered on 12/31/18 20:09; Admin Dose 23 UNITS; Start 12/31/18 at 20:00 BORIS WATSON MD Jan 01, 2019 06:24
[2019-01-01] MEDS ORDERED: BARIUM SULF 2% 450 ML BTL (BERRY SMOOTHIE) PO ONE (06:30)
[2019-01-01] MEDS: DOXYCYCLINE 100 MG TAB GTB SCH ×2 (09:17→20:37)
[2019-01-01] MEDS: L ACIDOPHIL/B LACTIS/B LONGUM CAPSULE PO SCH ×2 (09:17→20:37)
[2019-01-01] MEDS: FAMOTIDINE 20 MG INJ IV SCH ×2 (09:17→20:37)
[2019-01-01] MEDS: HEPARIN 5,000 UNIT/1 ML VIAL SC SCH ×2 (09:21→20:36)
--- NOTE | 2019-01-01 09:25 | CONS ---
Assessment/Plan Assessment/Plan Assessment/Plan (Daily) Assessment and recommendations; 1. Patient admitted with sepsis with interval clinical improvement. 2. Hypotension with clinical resolution as well. Off pressor support. 3. History of dementia. 4. Paroxysmal A. fib with RVR, currently in sinus rhythm. 5. History of diabetes. 6. Improving leukocytosis. 7. Anemia and thrombocytopenia. 8. Chronic dysphagia, status post G-tube placement in the past. Continue current supportive care. Consider transfer to medical floor. Consultation Date/Type/Reason Admit Date/Time Dec 29, 2018 at 01:35 Initial Consult Date 12/31/18 Type of Consult Pulmonary/critical care Patient condition is stable. Patient in sinus rhythm, off Cardizem drip. Has remained hemodynamically stable. General exam; elderly male, awake but noncommunicative. Occasionally tracks with eyes. Currently no distress. On room air. Date/Time of Note DATE: 01/01/19 TIME: 09:23 24 HR Interval Summary Free Text/Dictation Patient's condition is stable. Has remained hemodynamically stable. Remains in sinus rhythm and is off pressor support. General exam; elderly male, awake and somewhat communicative. Currently in no distress. Exam/Review of Systems Exam Vitals Vital Signs Date Temp Pulse Resp B/P (MAP) Pulse Ox O2 O2 Flow FiO2 Time Delivery Rate 01/01/19 85 08:00 01/01/19 12 100/56 96 Room Air 07:15 (71) 01/01/19 21 04:46 01/01/19 97.9 00:00 12/29/18 2.0 17:35 Intake and Output 12/31/18 12/31/18 01/01/19 1515:00 23:00 07:00 IntakeIntake Total 977.5 ml 1115 ml 1190 ml OutputOutput Total 615 ml 460 ml 255 ml BalanceBalance 362.5 ml 655 ml 935 ml Exam H EENT exam; supple neck, no JVD. No lymphadenopathy. Midline trachea. No thyromegaly. Patient has few remaining carious teeth. Chest exam; diminished but clear breath sounds. S1-S2 audible, no murmurs. Regular rhythm. Abdomen exam; soft, no organomegaly. G-tube in place. Bowel sounds are audible. Extremity exam; no peripheral edema. [employer] exam; patient is awake and somewhat responsive. Results Result Diagram: 7/9/19 0430 01/01/19 0430 Results 24hrs Laboratory Tests Test 12/31/18 09:24 12/31/18 13:11 12/31/18 17:34 12/31/18 20:06 Bedside Glucose 188 113 109 156 Test 12/31/18 21:36 01/01/19 04:30 01/01/19 05:26 01/01/19 05:46 Bedside Glucose 160 203 White Blood Count 12.6 #H Red Blood Count 3.23 L Hemoglobin 9.5 L Hematocrit 29.0 L Mean Corpuscular 89.8 Volume Mean Corpuscular 29.4 Hemoglobin Mean Corpuscular 32.8 Hemoglobin Concent Red Cell Distribution 15.4 H Width Platelet Count 183 Mean Platelet Volume 11.2 H Immature Granulocytes 0.600 H % Neutrophils % Lymphocytes % Monocytes % Eosinophils % Basophils % Nucleated Red Blood 0.0 Cells % Immature Granulocytes 0.070 H # Neutrophils # Lymphocytes # Monocytes # Eosinophils # Basophils # Nucleated Red Blood Cells # Sodium Level 140 Potassium Level 4.0 Chloride Level 112 H Carbon Dioxide Level 23 Anion Gap 5 Blood Urea Nitrogen 21 #H Creatinine 0.58 L Est Glomerular Filtrat Rate mL/min Glucose Level 158 Calcium Level 8.3 L Total Bilirubin 0.4 Direct Bilirubin 0.00 Indirect Bilirubin 0.4 Aspartate Amino 32 Transf (AST/SGOT) Alanine 32 Aminotransferase (ALT /SGPT) Alkaline Phosphatase 116 Total Protein 5.4 L Albumin 2.5 L Globulin 2.90 Albumin/Globulin 0.86 Ratio Lab Scanned Report REFERENCE LAB Test 01/01/19 09:19 Bedside Glucose 195 Medications Medication Current Medications Ondansetron HCl (Zofran Inj) 4 mg Q6H PRN IV NAUSEA AND/OR VOMITING; Start 12/29/18 at 03:30 Albuterol/ Ipratropium (Duoneb) 3 ml Q2H RESP THERAPY PRN NEB SHORTNESS OF BREATH; Start 12/29/18 at 03:30 Acetaminophen (Tylenol Liquid) 650 mg Q6H PRN PO PAIN LEVEL 1-3 OR FEVER; Start 12/29/18 at 03:30 Heparin Sodium (Porcine) (Heparin (5000 Units/1ml)) 5,000 unit Q12 SC Last administered on 01/01/19at 09:21; Admin Dose 5,000 UNIT; Start 12/29/18 at 09:00 Famotidine (Pepcid Iv) 20 mg BID IV Last administered on 01/01/19at 09:17; Admin Dose 20 MG; Start 12/29/18 at 09:00 Ondansetron HCl (Zofran Inj) 4 mg Q4H PRN IV NAUSEA AND/OR VOMITING; Start 12/29/18 at 08:30 Albuterol/ Ipratropium (Duoneb) 2.4 ml Q4H RESP THERAPY HHN Last administered on 01/01/19at 04:46; Admin Dose 2.4 ML; Start 12/29/18 at 09:00 Insulin Aspart (Novolog Insulin Pen) NOVOLOG *MODERATE* ALGORI... Q4 SC Last administered on 01/01/19 09:21; Admin Dose 4 UNIT; Start 12/29/18 at 09:00 Diagnostic Test (Pha) (Accu-Chek) 1 ea 02 XX Last administered on 12/31/18at 01:56; Admin Dose 1 EA; Start 12/30/18 at 02:00 Miscellaneous Information 1 ea NOTE XX ; Start 12/29/18 at 09:00 Glucose (Glutose) 15 gm Q15M PRN PO DECREASED GLUCOSE; Start 12/29/18 at 09:00 Glucose (Glutose) 22.5 gm Q15M PRN PO DECREASED GLUCOSE; Start 12/29/18 at 09:00 Dextrose (D50w Syringe) 25 ml Q15M PRN IV DECREASED GLUCOSE; Start 12/29/18 at 09:00 Dextrose (D50w Syringe) 50 ml Q15M PRN IV DECREASED GLUCOSE; Start 12/29/18 at 09:00 Glucagon (Glucagen) 1 mg Q15M PRN IM DECREASED GLUCOSE; Start 12/29/18 at 09:00 Glucose (Glutose) 15 gm Q15M PRN BUCCAL DECREASED GLUCOSE; Start 12/29/18 at 09:00 Sodium Chloride 1,000 ml @ 75 mls/hr [id number] IV Last administered on 01/01/19at 07:50; Admin Dose 75 MLS/HR; Start 12/29/18 at 11:30 Atorvastatin Calcium (Lipitor) 40 mg HS GTB Last administered on 12/31/18at 21:06; Admin Dose 40 MG; Start 12/29/18 at 21:00 Diltiazem HCl (Cardizem Iv) 5 mg Q4H PRN IV NOTE Last administered on 12/30/18 23:56; Admin Dose 5 MG; Start 12/30/18 at 23:30 Diltiazem HCl 125 ml @ 5 mls/hr TITRATE IV Last administered on 12/31/18 01:42; Admin Dose 5 MLS/HR; Start 12/31/18 at 01:30 Meropenem/Sodium Chloride 50 ml @ 100 mls/hr Q8 IVPB Last administered on 01/01/19 05:34; Admin Dose 100 MLS/HR; Start 12/31/18 at 14:00 Doxycycline Hyclate (Vibramycin) 100 mg BID GTB Last administered on 01/01/19 09:17; Admin Dose 100 MG; Start 12/31/18 at 09:00 Lactobacillus Acidophilus (Florajen3 Capsule) 1 each BID PO Last administered on 01/01/19 09:17; Admin Dose 1 EACH; Start 12/31/18 at 09:00 Phenylephrine HCl 250 ml @ 0 mls/hr IV IV Last administered on 12/31/18 12:49; Admin Dose 22.5 MLS/HR; Start 12/31/18 at 12:30 Insulin Glargine (Lantus) 23 units DAILY@2000 SC Last administered on 12/31/18 20:09; Admin Dose 23 UNITS; Start 12/31/18 at 20:00 BILL ARROYO Jan 01, 2019 09:25
--- NOTE | 2019-01-01 12:22 | PN ---
DATE: 01/01/2019 SUBJECTIVE: Patient is awake, alert, presently comfortable. OBJECTIVE: VITAL SIGNS: Blood pressure 120/56, off Mk-Synephrine drip. Heart rate 80 per minute regular, norm al sinus rhythm. O2 saturation 96% on room air. HEENT: JVD is not increased. CHEST: Clear anteriorly. Diminished breath sounds at bases. HEART: S1, S2 heard. ABDOMEN: Soft, nontender. EXTREMITIES: No edema. Onychomycosis of the toenails. LABORATORY DATA: WBC count 12.6, hematocrit 29. Sodium 140, potassium 4.0, BUN 521, creatinine 0.58 , glucose levels 150 to 200. Ultrasound of the abdomen shows partially contracted gallbladder. Mild wall thickening. ASSESSMENT AND PLAN: Dr. Montero' ID consultation greatly appreciated. A CT scan has been ordered. We will follow it up with the results. As the patient is just off the Mk-Synephrine, we will observe for 24 hours. If stable, will transfer the patient to tele tomorrow. Dictated By: JP THACKER MD, SR/DAXA Conf#: [id number] DID#: [id number]
[2019-01-01] MEDS ORDERED: SOD CHLORIDE 0.9% 100 ML ONE (12:23)
[2019-01-01] MEDS ORDERED: IOHEXOL 300MG/ML 150 ML BTL ONE (12:23)
[2019-01-01] MEDS: INSULIN GLARGINE [LANTus] (100 UNITS/ML) SYG SC SCH (20:36)
[2019-01-01] MEDS: ATORVASTATIN 40 MG TAB GTB SCH (20:37)
[2019-01-02] VITALS (24 sets, daily range): BP systolic 100–132; BP diastolic 52–80; PULSE 75–98; RESP 15–30
[2019-01-02] MEDS: INSULIN ASPART [NOVOLOG] 3 ML PEN SC SCH ×6 (01:00→20:11)
[2019-01-02] MEDS: ACCU-CHEK XX SCH (01:33)
[2019-01-02] MEDS: ALBUTEROL/IPRATROPIUM (NEB) 3 ML AMP HHN SCH ×5 (01:56→23:45)
[2019-01-02] MEDS: MEROPENEM 1 GM/50ML(PMX) 50 ML IVPB SCH ×3 (05:39→22:03)
--- NOTE | 2019-01-02 06:39 | CONS ---
Assessment/Plan Assessment/Plan Hospital Course (Demo Recall) 1) sepsis, unclear etiology diarrhea but neg c.dif and neg stool cx to date pt has some nodular densities and tree in bud formation could have pneumonitis but no F or cough is present alk phos is mildly elevated urine does not show significant pyuria and urine cx is NGTD urine cx from outside when he had a neg u/a had a very sensitive e.coli present to change antibiotics to merrem/doxy, to cover atypicals in lung as well as anaerobes as pt is high risk for aspiration get RUQ u/s to verify the GB is ok and not the source for infection if diarrhea persists to get abd/pelv CT start probiotics 01/01 - improved WBC but with abd pain and pus like material in stool to order abd/pelv CT with oral contrast urine cx was neg abd u/s did not show gallstones and only mildly thickened GB wall, no GB distension 01/02 - CT abd/pelv shows proctitis/distal colitis, stool is less smelly WBC back to WNL continue with merrem/doxy at present I suspect the colon was the source of his sepsis, consider GI consult 2) lung nodules with tree-in bud formation unable to get sputum cx change antibiotics to doxy/merrem to cover atypicals and anaerobes check ESR, HARESH, ANCA check beta d glucan (doubt fungal disease but will check) atypical mycobacteria is possible but would not explain his septic picture, to check quant TB gold though pt will need follow chest CT in a few months 01/01 - continue with doxy/merrem for possible aspiration pneumonia and HCAP 01/02 - lungs are stable 3) diarrhea c.dif was neg, stool cx is NGTD doubt he has a parasitic infection start probiotic if abd u/s is neg, to consider ct abd if diarrhea persists 01/01 - to get CT abd/pelv 01/02 - colitis/proctitis noted on CT less stool but still liquid but also less smelly consider GI consult, pt likely to need GI follow-up after this acute event 4) CVA with R sided hemiplegia 5) elevated alk phos check RUQ u/s 01/01 - contracted GB, no stone on u/s 6) DM improved sugars here 7) rapid a-fib pt is on cardizem drip Consultation Date/Type/Reason Admit Date/Time Dec 29, 2018 at 01:35 Initial Consult Date 12/31/18 Type of Consult ID Date/Time of Note DATE: 01/02/19 TIME: 06:32 24 HR Interval Summary Free Text/Dictation pt follows directions today but says yes to everything asked stool output is less but still liquid, not as smelly as before no V and tolerating TF no cough per nurse Exam/Review of Systems Exam Vitals Vital Signs Date Temp Pulse Resp B/P (MAP) Pulse Ox O2 O2 Flow FiO2 Time Delivery Rate 01/02/19 85 18 115/59 96 Room Air 06:00 (77) 01/02/19 21 05:47 01/02/19 98.5 04:00 12/29/18 2.0 17:35 Intake and Output 01/01/19 01/01/19 01/02/19 1515:00 23:00 07:00 IntakeIntake Total 1130 ml 620 ml 480 ml OutputOutput Total 565 ml 515 ml 590 ml BalanceBalance 565 ml 105 ml -110 ml Constitutional: alert Eyes: nl sclera ENMT: mucosa pink and moist Respiratory: clear to auscultation Cardiovascular: regular rate and rhythm Gastrointestinal: soft, other (less firm and no signs of pain with exam) Results Result Diagram: 01/02/19 0430 01/02/19 0430 Results 24hrs Laboratory Tests Test 01/01/19 09:19 01/01/19 13:41 01/01/19 18:27 01/01/19 20:31 Bedside Glucose 195 85 171 140 Test 01/02/19 01:16 01/02/19 04:30 01/02/19 05:39 Bedside Glucose 124 89 White Blood Count 7.4 # Red Blood Count 3.09 L Hemoglobin 9.3 L Hematocrit 27.3 L Mean Corpuscular 88.3 Volume Mean Corpuscular 30.1 Hemoglobin Mean Corpuscular 34.1 Hemoglobin Concent Red Cell Distribution 14.8 H Width Platelet Count 175 Mean Platelet Volume 10.4 Immature Granulocytes 1.500 H % Neutrophils % 72.0 Lymphocytes % 15.0 Monocytes % 8.8 Eosinophils % 2.2 Basophils % 0.5 Nucleated Red Blood 0.0 Cells % Immature Granulocytes 0.110 H # Neutrophils # 5.3 Lymphocytes # 1.1 Monocytes # 0.7 Eosinophils # 0.2 Basophils # 0.0 Nucleated Red Blood 0.0 Cells # Sodium Level 138 Potassium Level 3.8 Chloride Level 110 Carbon Dioxide Level 24 Anion Gap 4 L Blood Urea Nitrogen 13 Creatinine 0.43 L Est Glomerular Filtrat Rate mL/min Glucose Level 91 # Calcium Level 8.1 L Medications Medication Current Medications Albuterol/ Ipratropium (Duoneb) 3 ml Q2H RESP THERAPY PRN NEB SHORTNESS OF BR EATH; Start 12/29/18 at 03:30 Acetaminophen (Tylenol Liquid) 650 mg Q6H PRN PO PAIN LEVEL 1-3 OR FEVER; Start 12/29/18 at 03:30 Heparin Sodium (Porcine) (Heparin (5000 Units/1ml)) 5,000 unit Q12 SC Last administered on 01/01/19at 20:36; Admin Dose 5,000 UNIT; Start 12/29/18 at 09:00 Famotidine (Pepcid Iv) 20 mg BID IV Last administered on 01/01/19at 20:37; Admin Dose 20 MG; Start 12/29/18 at 09:00 Ondansetron HCl (Zofran Inj) 4 mg Q4H PRN IV NAUSEA AND/OR VOMITING; Start 12/29/18 at 08:30 Albuterol/ Ipratropium (Duoneb) 2.4 ml Q4H RESP THERAPY HHN Last administered on 01/02/19at 05:47; Admin Dose 2.4 ML; Start 12/29/18 at 09:00 Insulin Aspart (Novolog Insulin Pen) NOVOLOG *MODERATE* ALGORI... Q4 SC Last administered on 01/01/19at 18:34; Admin Dose 2 UNIT; Start 12/29/18 at 09:00 Diagnostic Test (Pha) (Accu-Chek) 1 ea 02 XX Last administered on 12/31/18at 01:56; Admin Dose 1 EA; Start 12/30/18 at 02:00 Miscellaneous Information 1 ea NOTE XX ; Start 12/29/18 at 09:00 Glucose (Glutose) 15 gm Q15M PRN PO DECREASED GLUCOSE; Start 12/29/18 at 09:00 Glucose (Glutose) 22.5 gm Q15M PRN PO DECREASED GLUCOSE; Start 12/29/18 at 09:00 Dextrose (D50w Syringe) 25 ml Q15M PRN IV DECREASED GLUCOSE; Start 12/29/18 at 09:00 Dextrose (D50w Syringe) 50 ml Q15M PRN IV DECREASED GLUCOSE; Start 12/29/18 at 09:00 Glucagon (Glucagen) 1 mg Q15M PRN IM DECREASED GLUCOSE; Start 12/29/18 at 09:00 Glucose (Glutose) 15 gm Q15M PRN BUCCAL DECREASED GLUCOSE; Start 12/29/18 at 09:00 Atorvastatin Calcium (Lipitor) 40 mg HS GTB Last administered on 01/01/19 20:37; Admin Dose 40 MG; Start 12/29/18 at 21:00 Diltiazem HCl (Cardizem Iv) 5 mg Q4H PRN IV NOTE Last administered on 12/30/18 23:56; Admin Dose 5 MG; Start 12/30/18 at 23:30 Diltiazem HCl 125 ml @ 5 mls/hr TITRATE IV Last administered on 12/31/18 01:42; Admin Dose 5 MLS/HR; Start 12/31/18 at 01:30 Meropenem/Sodium Chloride 50 ml @ 100 mls/hr Q8 IVPB Last administered on 01/02/19 05:39; Admin Dose 100 MLS/HR; Start 12/31/18 at 14:00 Doxycycline Hyclate (Vibramycin) 100 mg BID GTB Last administered on 01/01/19 20:37; Admin Dose 100 MG; Start 12/31/18 at 09:00 Lactobacillus Acidophilus (Florajen3 Capsule) 1 each BID PO Last administered on 01/01/19 20:37; Admin Dose 1 EACH; Start 12/31/18 at 09:00 Phenylephrine HCl 250 ml @ 0 mls/hr IV IV Last administered on 12/31/18 12:49; Admin Dose 22.5 MLS/HR; Start 12/31/18 at 12:30 Insulin Glargine (Lantus) 23 units DAILY@2000 SC Last administered on 01/01/19 20:36; Admin Dose 23 UNITS; Start 12/31/18 at 20:00 BORIS WATSON MD Jan 02, 2019 06:39
[2019-01-02] MEDS: DOXYCYCLINE 100 MG TAB GTB SCH ×2 (08:45→20:07)
[2019-01-02] MEDS: L ACIDOPHIL/B LACTIS/B LONGUM CAPSULE PO SCH ×2 (08:45→20:07)
[2019-01-02] MEDS: HEPARIN 5,000 UNIT/1 ML VIAL SC SCH ×2 (08:46→20:10)
[2019-01-02] MEDS: FAMOTIDINE 20 MG INJ IV SCH ×2 (08:50→20:07)
--- NOTE | 2019-01-02 09:13 | CONS ---
Assessment/Plan Assessment/Plan Assessment/Plan (Daily) Assessment and recommendations; 1. Patient admitted with sepsis with significant leukocytosis, responding appropriately current antimicrobial regimen. Source of infection is unclear. 2. Dementia. 3. Paroxysmal atrial fibrillation, currently in sinus rhythm. 4. Anemia and thrombocytopenia. 5. Colitis. C. difficile is negative though. 6. History of diabetes. Continue current supportive care. Transfer to medical floor. Antimicrobials per ID recommendations. Consultation Date/Type/Reason Admit Date/Time Dec 29, 2018 at 01:35 Initial Consult Date 12/31/18 Type of Consult Pulmonary/critical care Patient condition is stable. Patient in sinus rhythm, off Cardizem drip. Has remained hemodynamically stable. General exam; elderly male, awake but noncommunicative. Occasionally tracks with eyes. Currently no distress. On room air. Date/Time of Note DATE: 01/02/19 TIME: 09:12 24 HR Interval Summary Free Text/Dictation Patient's condition is stable. Has remained hemodynamically stable. General exam; elderly male, awake and somewhat responsive. Currently in no distress. Exam/Review of Systems Exam Vitals Vital Signs Date Temp Pulse Resp B/P (MAP) Pulse Ox O2 O2 Flow FiO2 Time Delivery Rate 01/02/19 86 08:00 01/02/19 18 115/59 96 Room Air 06:00 (77) 01/02/19 21 05:47 01/02/19 98.5 04:00 12/29/18 2.0 17:35 Intake and Output 01/01/19 01/01/19 01/02/19 1515:00 23:00 07:00 IntakeIntake Total 1130 ml 620 ml 480 ml OutputOutput Total 565 ml 515 ml 590 ml BalanceBalance 565 ml 105 ml -110 ml Exam H EENT exam; supple neck, no JVD. No lymphadenopathy. Midline trachea. No thyromegaly. Patient has 2 remaining carious teeth. Chest exam; diminished but clear breath sounds. S1-S2 audible, no murmurs. Regular rhythm. Abdomen exam; soft, no organomegaly. G-tube in place. Nontender. Bowel sounds audible. Extremity exam; no peripheral edema. 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 Results Result Diagram: 01/02/19 0430 01/02/19 0430 Results 24hrs Laboratory Tests Test 01/01/19 09:19 01/01/19 13:41 01/01/19 18:27 01/01/19 20:31 Bedside Glucose 195 85 171 140 Test 01/02/19 01:16 01/02/19 04:30 01/02/19 05:39 01/02/19 08:53 Bedside Glucose 124 89 147 White Blood Count 7.4 # Red Blood Count 3.09 L Hemoglobin 9.3 L Hematocrit 27.3 L Mean Corpuscular 88.3 Volume Mean Corpuscular 30.1 Hemoglobin Mean Corpuscular 34.1 Hemoglobin Concent Red Cell 14.8 H Distribution Width Platelet Count 175 Mean Platelet Volume 10.4 Immature 1.500 H Granulocytes % Neutrophils % 72.0 Lymphocytes % 15.0 Monocytes % 8.8 Eosinophils % 2.2 Basophils % 0.5 Nucleated Red Blood 0.0 Cells % Immature 0.110 H Granulocytes # Neutrophils # 5.3 Lymphocytes # 1.1 Monocytes # 0.7 Eosinophils # 0.2 Basophils # 0.0 Nucleated Red Blood 0.0 Cells # Sodium Level 138 Potassium Level 3.8 Chloride Level 110 Carbon Dioxide Level 24 Anion Gap 4 L Blood Urea Nitrogen 13 Creatinine 0.43 L Est Glomerular Filtrat Rate mL/min Glucose Level 91 # Calcium Level 8.1 L Medications Medication Current Medications Albuterol/ Ipratropium (Duoneb) 3 ml Q2H RESP THERAPY PRN NEB SHORTNESS OF BREATH; Start 12/29/18 at 03:30 Acetaminophen (Tylenol Liquid) 650 mg Q6H PRN PO PAIN LEVEL 1-3 OR FEVER; Start 12/29/18 at 03:30 Heparin Sodium (Porcine) (Heparin (5000 Units/1ml)) 5,000 unit Q12 SC Last administered on 01/02/19at 08:46; Admin Dose 5,000 UNIT; Start 12/29/18 at 09:00 Famotidine (Pepcid Iv) 20 mg BID IV Last administered on 01/02/19at 08:50; Admin Dose 20 MG; Start 12/29/18 at 09:00 Ondansetron HCl (Zofran Inj) 4 mg Q4H PRN IV NAUSEA AND/OR VOMITING; Start 12/29/18 at 08:30 Albuterol/ Ipratropium (Duoneb) 2.4 ml Q4H RESP THERAPY HHN Last administered on 01/02/19 05:47; Admin Dose 2.4 ML; Start 12/29/18 at 09:00 Insulin Aspart (Novolog Insulin Pen) NOVOLOG *MODERATE* ALGORI... Q4 SC Last administered on 01/02/19 08:55; Admin Dose 2 UNIT; Start 12/29/18 at 09:00 Diagnostic Test (Pha) (Accu-Chek) 1 ea 02 XX Last administered on 12/31/18 01:56; Admin Dose 1 EA; Start 12/30/18 at 02:00 Miscellaneous Information 1 ea NOTE XX ; Start 12/29/18 at 09:00 Glucose (Glutose) 15 gm Q15M PRN PO DECREASED GLUCOSE; Start 12/29/18 at 09:00 Glucose (Glutose) 22.5 gm Q15M PRN PO DECREASED GLUCOSE; Start 12/29/18 at 09:00 Dextrose (D50w Syringe) 25 ml Q15M PRN IV DECREASED GLUCOSE; Start 12/29/18 at 09:00 Dextrose (D50w Syringe) 50 ml Q15M PRN IV DECREASED GLUCOSE; Start 12/29/18 at 09:00 Glucagon (Glucagen) 1 mg Q15M PRN IM DECREASED GLUCOSE; Start 12/29/18 at 09:00 Glucose (Glutose) 15 gm Q15M PRN BUCCAL DECREASED GLUCOSE; Start 12/29/18 at 09:00 Atorvastatin Calcium (Lipitor) 40 mg HS GTB Last administered on 01/01/19at 20:37; Admin Dose 40 MG; Start 12/29/18 at 21:00 Diltiazem HCl (Cardizem Iv) 5 mg Q4H PRN IV NOTE Last administered on 12/30/18at 23:56; Admin Dose 5 MG; Start 12/30/18 at 23:30 Diltiazem HCl 125 ml @ 5 mls/hr TITRATE IV Last administered on 12/31/18 01:42; Admin Dose 5 MLS/HR; Start 12/31/18 at 01:30 Meropenem/Sodium Chloride 50 ml @ 100 mls/hr Q8 IVPB Last administered on 01/02/19 05:39; Admin Dose 100 MLS/HR; Start 12/31/18 at 14:00 Doxycycline Hyclate (Vibramycin) 100 mg BID GTB Last administered on 01/02/19 08:45; Admin Dose 100 MG; Start 12/31/18 at 09:00 Lactobacillus Acidophilus (Florajen3 Capsule) 1 each BID PO Last administered on 01/02/19 08:45; Admin Dose 1 EACH; Start 12/31/18 at 09:00 Phenylephrine HCl 250 ml @ 0 mls/hr IV IV Last administered on 12/31/18 12:49; Admin Dose 22.5 MLS/HR; Start 12/31/18 at 12:30 Insulin Glargine (Lantus) 23 units DAILY@2000 SC Last administered on 01/01/19 20:36; Admin Dose 23 UNITS; Start 12/31/18 at 20:00 BILL ARROYO Jan 02, 2019 09:13
[2019-01-02] MEDS: ATORVASTATIN 40 MG TAB GTB SCH (20:07)
[2019-01-02] MEDS: INSULIN GLARGINE [LANTus] (100 UNITS/ML) SYG SC SCH (20:10)
[2019-01-03] VITALS (20 sets, daily range): BP systolic 108–145; BP diastolic 47–75; PULSE 83–95; RESP 16–26
[2019-01-03] MEDS: INSULIN ASPART [NOVOLOG] 3 ML PEN SC SCH ×6 (01:00→21:45)
[2019-01-03] MEDS: ACCU-CHEK XX SCH (01:21)
[2019-01-03] MEDS: MEROPENEM 1 GM/50ML(PMX) 50 ML IVPB SCH ×3 (05:06→21:37)
--- NOTE | 2019-01-03 08:06 | CONS ---
Assessment/Plan Assessment/Plan Hospital Course (Demo Recall) 1) sepsis, unclear etiology (more likely the colon) diarrhea but neg c.dif and neg stool cx to date pt has some nodular densities and tree in bud formation could have pneumonitis but no F or cough is present alk phos is mildly elevated urine does not show significant pyuria and urine cx is NGTD urine cx from outside when he had a neg u/a had a very sensitive e.coli present to change antibiotics to merrem/doxy, to cover atypicals in lung as well as anaerobes as pt is high risk for aspiration get RUQ u/s to verify the GB is ok and not the source for infection if diarrhea persists to get abd/pelv CT start probiotics 01/01 - improved WBC but with abd pain and pus like material in stool to order abd/pelv CT with oral contrast urine cx was neg abd u/s did not show gallstones and only mildly thickened GB wall, no GB distension 01/02 - CT abd/pelv shows proctitis/distal colitis, stool is less smelly WBC back to WNL continue with merrem/doxy at present I suspect the colon was the source of his sepsis, consider GI consult 2) lung nodules with tree-in bud formation unable to get sputum cx change antibiotics to doxy/merrem to cover atypicals and anaerobes check ESR, HARESH, ANCA check beta d glucan (doubt fungal disease but will check) atypical mycobacteria is possible but would not explain his septic picture, to check quant TB gold though pt will need follow chest CT in a few months 01/01 - continue with doxy/merrem for possible aspiration pneumonia and HCAP 01/02 - lungs are stable 01/03 - procalcitonin is improving, to repeat in a.m. continue with doxy/merrem, day 4 3) diarrhea c.dif was neg, stool cx is NGTD doubt he has a parasitic infection start probiotic if abd u/s is neg, to consider ct abd if diarrhea persists 01/01 - to get CT abd/pelv 01/02 - colitis/proctitis noted on CT less stool but still liquid but also less smelly consider GI consult, pt likely to need GI follow-up after this acute event 01/03 - still with liquid brown/[place] stool, no pus or mucus appreciated neg c.dif and stool is less smelly on merrem/doxy consider GI input 4) CVA with R sided hemiplegia 5) elevated alk phos check RUQ u/s 01/01 - contracted GB, no stone on u/s 6) DM improved sugars here 7) rapid a-fib pt is on cardizem drip Consultation Date/Type/Reason Admit Date/Time Dec 29, 2018 at 01:35 Initial Consult Date 12/31/18 Type of Consult ID Date/Time of Note DATE: 01/03/19 TIME: 08:00 24 HR Interval Summary Free Text/Dictation spoke to nurse more alert and follows direction no V still has watery stools but more the color of his tube feeds but a darker [place] Exam/Review of Systems Exam Vitals Vital Signs Date Temp Pulse Resp B/P (MAP) Pulse Ox O2 O2 Flow FiO2 Time Delivery Rate 01/03/19 86 23 118/58 96 Room Air 06:00 (78) 01/03/19 98.4 04:00 01/02/19 21 23:45 Intake and Output 01/02/19 01/02/19 01/03/19 1515:00 23:00 07:00 IntakeIntake Total 470 ml 290 ml 480 ml OutputOutput Total 880 ml 910 ml 530 ml BalanceBalance -410 ml -620 ml -50 ml Constitutional: alert Eyes: nl sclera ENMT: mucosa pink and moist Respiratory: clear to auscultation Cardiovascular: regular rate and rhythm Gastrointestinal: soft Results Result Diagram: 01/03/19 0410 01/03/19 0410 Results 24hrs Laboratory Tests Test 01/02/19 08:53 01/02/19 13:20 01/02/19 17:14 01/02/19 20:01 Bedside Glucose 147 154 158 131 Test 01/03/19 01:02 01/03/19 04:10 01/03/19 04:20 Bedside Glucose 98 128 White Blood Count 7.1 Red Blood Count 3.35 L Hemoglobin 9.8 L Hematocrit 29.5 L Mean Corpuscular 88.1 Volume Mean Corpuscular 29.3 Hemoglobin Mean Corpuscular 33.2 Hemoglobin Concent Red Cell 14.7 H Distribution Width Platelet Count 191 Mean Platelet Volume 10.6 H Immature 4.200 H Granulocytes % Neutrophils % 68.4 Lymphocytes % 15.4 Monocytes % 8.9 Eosinophils % 2.3 Basophils % 0.8 Nucleated Red Blood 0.3 H Cells % Immature 0.300 H Granulocytes # Neutrophils # 4.8 Lymphocytes # 1.1 Monocytes # 0.6 Eosinophils # 0.2 Basophils # 0.1 Nucleated Red Blood 0.0 Cells # Sodium Level 138 Potassium Level 3.9 Chloride Level 107 Carbon Dioxide Level 25 Anion Gap 6 Blood Urea Nitrogen 11 Creatinine 0.47 L Est Glomerular Filtrat Rate mL/min Glucose Level 113 Calcium Level 8.4 Medications Medication Current Medications Albuterol/ Ipratropium (Duoneb) 3 ml Q2H RESP THERAPY PRN NEB SHORTNESS OF BREATH; Start 12/29/18 at 03:30 Acetaminophen (Tylenol Liquid) 650 mg Q6H PRN PO PAIN LEVEL 1-3 OR FEVER; Start 12/29/18 at 03:30 Heparin Sodium (Porcine) (Heparin (5000 Units/1ml)) 5,000 unit Q12 SC Last administered on 01/02/19at 20:10; Admin Dose 5,000 UNIT; Start 12/29/18 at 09:00 Famotidine (Pepcid Iv) 20 mg BID IV Last administered on 01/02/19at 20:07; Admin Dose 20 MG; Start 12/29/18 at 09:00 Ondansetron HCl (Zofran Inj) 4 mg Q4H PRN IV NAUSEA AND/OR VOMITING; Start 12/29/18 at 08:30 Insulin Aspart (Novolog Insulin Pen) NOVOLOG *MODERATE* ALGORI... Q4 SC Last administered on 01/02/19at 17:23; Admin Dose 2 UNIT; Start 12/29/18 at 09:00 Diagnostic Test (Pha) (Accu-Chek) 1 ea 02 XX Last administered on 12/31/18at 01:56; Admin Dose 1 EA; Start 12/30/18 at 02:00 Miscellaneous Information 1 ea NOTE XX ; Start 12/29/18 at 09:00 Glucose (Glutose) 15 gm Q15M PRN PO DECREASED GLUCOSE; Start 12/29/18 at 09:00 Glucose (Glutose) 22.5 gm Q15M PRN PO DECREASED GLUCOSE; Start 12/29/18 at 09:00 Dextrose (D50w Syringe) 25 ml Q15M PRN IV DECREASED GLUCOSE; Start 12/29/18 at 09:00 Dextrose (D50w Syringe) 50 ml Q15M PRN IV DECREASED GLUCOSE; Start 12/29/18 at 09:00 Glucagon (Glucagen) 1 mg Q15M PRN IM DECREASED GLUCOSE; Start 12/29/18 at 09:00 Glucose (Glutose) 15 gm Q15M PRN BUCCAL DECREASED GLUCOSE; Start 12/29/18 at 09:00 Atorvastatin Calcium (Lipitor) 40 mg HS GTB Last administered on 01/02/19 20:07; Admin Dose 40 MG; Start 12/29/18 at 21:00 Diltiazem HCl (Cardizem Iv) 5 mg Q4H PRN IV NOTE Last administered on 12/30/18 23:56; Admin Dose 5 MG; Start 12/30/18 at 23:30 Diltiazem HCl 125 ml @ 5 mls/hr TITRATE IV Last administered on 12/31/18 01:42; Admin Dose 5 MLS/HR; Start 12/31/18 at 01:30 Meropenem/Sodium Chloride 50 ml @ 100 mls/hr Q8 IVPB Last administered on 05:06; Admin Dose 100 MLS/HR; Start 12/31/18 at 14:00 Doxycycline Hyclate (Vibramycin) 100 mg BID GTB Last administered on 01/02/19 20:07; Admin Dose 100 MG; Start 12/31/18 at 09:00 Lactobacillus Acidophilus (Florajen3 Capsule) 1 each BID PO Last administered on 01/02/19 20:07; Admin Dose 1 EACH; Start 12/31/18 at 09:00 Phenylephrine HCl 250 ml @ 0 mls/hr IV IV Last administered on 12/31/18 12:49; Admin Dose 22.5 MLS/HR; Start 12/31/18 at 12:30 Insulin Glargine (Lantus) 23 units DAILY@2000 SC Last administered on 01/02/19 20:10; Admin Dose 23 UNITS; Start 12/31/18 at 20:00 Albuterol/ Ipratropium (Duoneb) 3 ml Q8H RESP THERAPY HHN Last administered on 01/02/19 23:45; Admin Dose 3 ML; Start 01/02/19 at 16:00 BORIS WATSON MD Jan 03, 2019 08:06
--- NOTE | 2019-01-03 09:21 | CONS ---
Assessment/Plan Assessment/Plan Assessment/Plan (Daily) Assessment and recommendations; 1. Patient admitted with sepsis with unclear source of infection. Patient clinically however has responded very well to current antimicrobial regimen. Possibly underlying colitis as a source. However C. difficile is negative. Diarrhea is improving. 2. Encephalopathy with marked overall interval improvement over the last 24 to 48 hours. 3. History of diabetes. 4. Anemia and thrombocytopenia. 5. History of paroxysmal atrial fibrillation, currently in sinus rhythm. Continue current supportive care. Transfer to medical floor. Antibiotics per ID recommendations. Consultation Date/Type/Reason Admit Date/Time Dec 29, 2018 at 01:35 Initial Consult Date 12/31/18 Type of Consult Pulmonary/critical care Patient condition is stable. Patient in sinus rhythm, off Cardizem drip. Has r emained hemodynamically stable. General exam; elderly male, awake but noncommunicative. Occasionally tracks with eyes. Currently no distress. On room air. Date/Time of Note DATE: 01/03/19 TIME: 09:19 24 HR Interval Summary Free Text/Dictation Patient's condition is markedly improved. Patient now is completely awake and alert and follows simple commands. Has remained hemodynamically stable. General exam; elderly male, awake alert, currently in no distress. Exam/Review of Systems Exam Vitals Vital Signs Date Temp Pulse Resp B/P (MAP) Pulse Ox O2 O2 Flow FiO2 Time Delivery Rate 01/03/19 86 23 118/58 96 Room Air 06:00 (78) 01/03/19 98.4 04:00 01/02/19 21 23:45 Intake and Output 01/02/19 01/02/19 01/03/19 1515:00 23:00 07:00 IntakeIntake Total 470 ml 290 ml 480 ml OutputOutput Total 880 ml 910 ml 530 ml BalanceBalance -410 ml -620 ml -50 ml Exam H EENT exam; supple neck, no JVD. No lymphadenopathy. Midline trachea. No thyromegaly. Pupils are small bilaterally. Patient is edentulous. Chest exam; diminished but clear breath sounds. S1-S2 audible, no murmurs. Regular rhythm. Abdomen exam; soft, nondistended. No organomegaly. G-tube in place. Bowel sounds audible. Extremity exam; trace edema. 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 Patient to exhibiting generalized weakness more prominent in lower extremities. Results Result Diagram: 01/03/19 0410 01/03/19 0410 Results 24hrs Laboratory Tests Test 01/02/19 13:20 01/02/19 17:14 01/02/19 20:01 01/03/19 01:02 Bedside Glucose 154 158 131 98 Test 01/03/19 04:10 01/03/19 04:20 White Blood Count 7.1 Red Blood Count 3.35 L Hemoglobin 9.8 L Hematocrit 29.5 L Mean Corpuscular 88.1 Volume Mean Corpuscular 29.3 Hemoglobin Mean Corpuscular 33.2 Hemoglobin Concent Red Cell 14.7 H Distribution Width Platelet Count 191 Mean Platelet Volume 10.6 H Immature 4.200 H Granulocytes % Neutrophils % 68.4 Lymphocytes % 15.4 Monocytes % 8.9 Eosinophils % 2.3 Basophils % 0.8 Nucleated Red Blood 0.3 H Cells % Immature 0.300 H Granulocytes # Neutrophils # 4.8 Lymphocytes # 1.1 Monocytes # 0.6 Eosinophils # 0.2 Basophils # 0.1 Nucleated Red Blood 0.0 Cells # Sodium Level 138 Potassium Level 3.9 Chloride Level 107 Carbon Dioxide Level 25 Anion Gap 6 Blood Urea Nitrogen 11 Creatinine 0.47 L Est Glomerular Filtrat Rate mL/min Glucose Level 113 Calcium Level 8.4 Bedside Glucose 128 Medications Medication Current Medications Albuterol/ Ipratropium (Duoneb) 3 ml Q2H RESP THERAPY PRN NEB SHORTNESS OF BREATH; Start 12/29/18 at 03:30 Acetaminophen (Tylenol Liquid) 650 mg Q6H PRN PO PAIN LEVEL 1-3 OR FEVER; Start 12/29/18 at 03:30 Heparin Sodium (Porcine) (Heparin (5000 Units/1ml)) 5,000 unit Q12 SC Last administered on 01/02/19at 20:10; Admin Dose 5,000 UNIT; Start 12/29/18 at 09:00 Famotidine (Pepcid Iv) 20 mg BID IV Last administered on 01/02/19at 20:07; Admin Dose 20 MG; Start 12/29/18 at 09:00 Ondansetron HCl (Zofran Inj) 4 mg Q4H PRN IV NAUSEA AND/OR VOMITING; Start 12/29/18 at 08:30 Insulin Aspart (Novolog Insulin Pen) NOVOLOG *MODERATE* ALGORI... Q4 SC Last administered on 01/02/19 17:23; Admin Dose 2 UNIT; Start 12/29/18 at 09:00 Diagnostic Test (Pha) (Accu-Chek) 1 ea 02 XX Last administered on 12/31/18at 01:56; Admin Dose 1 EA; Start 12/30/18 at 02:00 Miscellaneous Information 1 ea NOTE XX ; Start 12/29/18 at 09:00 Glucose (Glutose) 15 gm Q15M PRN PO DECREASED GLUCOSE; Start 12/29/18 at 09:00 Glucose (Glutose) 22.5 gm Q15M PRN PO DECREASED GLUCOSE; Start 12/29/18 at 09:00 Dextrose (D50w Syringe) 25 ml Q15M PRN IV DECREASED GLUCOSE; Start 12/29/18 at 09:00 Dextrose (D50w Syringe) 50 ml Q15M PRN IV DECREASED GLUCOSE; Start 12/29/18 at 09:00 Glucagon (Glucagen) 1 mg Q15M PRN IM DECREASED GLUCOSE; Start 12/29/18 at 09:00 Glucose (Glutose) 15 gm Q15M PRN BUCCAL DECREASED GLUCOSE; Start 12/29/18 at 09:00 Atorvastatin Calcium (Lipitor) 40 mg HS GTB Last administered on 01/02/19 20:07; Admin Dose 40 MG; Start 12/29/18 at 21:00 Diltiazem HCl (Cardizem Iv) 5 mg Q4H PRN IV NOTE Last administered on 12/30/18at 23:56; Admin Dose 5 MG; Start 12/30/18 at 23:30 Diltiazem HCl 125 ml @ 5 mls/hr TITRATE IV Last administered on 12/31/18at 01:42; Admin Dose 5 MLS/HR; Start 12/31/18 at 01:30 Meropenem/Sodium Chloride 50 ml @ 100 mls/hr Q8 IVPB Last administered on 01/03/19 05:06; Admin Dose 100 MLS/HR; Start 12/31/18 at 14:00 Doxycycline Hyclate (Vibramycin) 100 mg BID GTB Last administered on 01/02/19 20:07; Admin Dose 100 MG; Start 12/31/18 at 09:00 Lactobacillus Acidophilus (Florajen3 Capsule) 1 each BID PO Last administered on 01/02/19 20:07; Admin Dose 1 EACH; Start 12/31/18 at 09:00 Phenylephrine HCl 250 ml @ 0 mls/hr IV IV Last administered on 12/31/18 12:49; Admin Dose 22.5 MLS/HR; Start 12/31/18 at 12:30 Insulin Glargine (Lantus) 23 units DAILY@2000 SC Last administered on 01/02/19 20:10; Admin Dose 23 UNITS; Start 12/31/18 at 20:00 Albuterol/ Ipratropium (Duoneb) 3 ml Q8H RESP THERAPY HHN Last administered on 01/02/19 23:45; Admin Dose 3 ML; Start 01/02/19 at 16:00 BILL ARROYO Jan 03, 2019 09:21
[2019-01-03] MEDS: ALBUTEROL/IPRATROPIUM (NEB) 3 ML AMP HHN SCH ×3 (09:34→23:39)
[2019-01-03] MEDS: L ACIDOPHIL/B LACTIS/B LONGUM CAPSULE PO SCH ×2 (09:47→21:38)
[2019-01-03] MEDS: DOXYCYCLINE 100 MG TAB GTB SCH ×2 (09:47→23:24)
[2019-01-03] MEDS: HEPARIN 5,000 UNIT/1 ML VIAL SC SCH ×2 (09:49→21:43)
[2019-01-03] MEDS: FAMOTIDINE 20 MG INJ IV SCH (09:51)
[2019-01-03] MEDS ORDERED: POTASSIUM CHLORIDE 20 MEQ POWDER FOR ORAL SOLN PO SCH (11:30)
--- NOTE | 2019-01-03 12:46 | PN ---
DATE: 01/03/2019 SUBJECTIVE: The patient is more awake and responsive. OBJECTIVE: VITAL SIGNS: Temperature 98.5, blood pressure 117/75, O2 saturation 96% on room air, off pressors. LUNGS: Clinically clear. HEART: S1, S2, no definite gallops. ABDOMEN: Soft. G-tube in place, functioning well. EXTREMITIES: Trace edema. Homans sign is negative. Onychomycosis over toenails. DIAGNOSES: 1. Patient presently on doxycycline and Merrem for coverage of atypicals and anaerobes. 2. Dr. Montero' recommendations noted regarding a followup chest CT in a few months. 3. Stool for OB is negative. 4. Quantiferon Gold test is negative. 5. Patient continues to have liquid stools. IMPRESSION: 1. Septic shock with healthcare-associated pneumonia with hypoxic respiratory failure, improving. 3. Atrial fibrillation with rapid ventricular response. The patient in normal sinus rhythm. 4. Diabetes mellitus type 2, well controlled. 5. Status post cerebrovascular accident with right hemiparesis. 6. Clostridium difficile colitis. 7. Hypertension. 8. Hyperlipidemia. PLAN: Will continue Lantus insulin, IV Merrem and doxycycline. If diarrhea continues, we will reque GI consultation with Dr. Joyce. Dictated By: JP THACKER MD SR/NTS Conf#: [id number] DID#: [id number]
[2019-01-03] MEDS: FAMOTIDINE 20 MG TAB GTB SCH (21:38)
[2019-01-03] MEDS: ATORVASTATIN 40 MG TAB GTB SCH (21:38)
[2019-01-03] MEDS: INSULIN GLARGINE [LANTus] (100 UNITS/ML) SYG SC SCH (21:46)
[2019-01-03] MEDS: ACETAMINOPHEN 650MG/20.3ML CUP PO PRN (21:52)
[2019-01-03] MEDS: CHOLESTYRAMINE (LIGHT) 4 GM PACKET PO SCH (23:24)
--- NOTE | 2019-01-04 01:47 | CONS ---
DATE OF ADMISSION: 12/29/2018 DATE OF CONSULTATION: HISTORY OF PRESENT ILLNESS: The patient is a 73-year-old gentleman brought in from [place] , where he comes from for altered level of consciousness and shortness of breath. The patient was fo und to be tachycardic, hypoxic and hypotensive, was placed on a broad spectrum antibiotic after appro priate culture. He also has a history of hypertension and diabetes mellitus. GI consult was called in for diarrhea. So far, all the cultures have been negative. Stool for occult blood was negative. C. difficile was negative. CAT scan of the abdomen and pelvis done which showed proctitis. Not muc h history could be obtained from the patient. MEDICATIONS: All reviewed. At custodial he was on: 1. Plavix. 2. Aricept. 3. Metoprolol. 4. Statin. 5. NovoLog 6. Metformin. SOCIAL HISTORY: Does not smoke or drink. FAMILY HISTORY: Negative for colon cancer. SOCIAL HISTORY: The patient is a , has 1 son. PHYSICAL EXAMINATION GENERAL: Well-built, nourished, not in distress. VITAL SIGNS: Stable. HEENT: Unremarkable. NECK: Supple, no thyromegaly, no lymphadenopathy. CARDIOVASCULAR: No murmur, gallop or click. LUNGS: Air entry diminished at both bases. ABDOMEN: Soft. G-tube is in place. It is nontender, bowel sounds good. No mass felt per abdomen. EXTREMITIES: No edema. CENTRAL NERVOUS SYSTEM: He has right hemiparesis. IMPRESSION: 1. Septic shock secondary to pneumonia. 2. Atrial fibrillation. The patient is now in normal sinus rhythm. 3. Diabetes mellitus. 4. Cerebrovascular accident. 5. 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 So far, all the cultures and Clostridiu m difficile has been negative. 6. Hypertension. 7. Hyperlipidemia. 8. Proctitis on the CAT scan. It could be inflammatory or due to the balloon from rectal tube. PLAN: To continue present care. We will start patient empirically on Questran. Will also send stoo l examination for ova and parasites and WBC and will follow. Dictated By: HERMES SO/DAXA Conf#: [id number] DID#: [id number] CC: HERMES GONSALEZ MD;*EndCC*
[2019-01-04] MEDS: INSULIN ASPART [NOVOLOG] 3 ML PEN SC SCH ×6 (01:56→21:13)
[2019-01-04] MEDS: ACCU-CHEK XX SCH (02:00)
[2019-01-04 02:20] VITALS: BP 116/56; PULSE 81; RESP 18
[2019-01-04] MEDS: MEROPENEM 1 GM/50ML(PMX) 50 ML IVPB SCH ×3 (05:36→22:33)
[2019-01-04 07:22] VITALS: BP 133/66; PULSE 83; RESP 22
--- NOTE | 2019-01-04 08:17 | CONS ---
Assessment/Plan Assessment/Plan Hospital Course (Demo Recall) 1) sepsis, unclear etiology (more likely the colon) diarrhea but neg c.dif and neg stool cx to date pt has some nodular densities and tree in bud formation could have pneumonitis but no F or cough is present alk phos is mildly elevated urine does not show significant pyuria and urine cx is NGTD urine cx from outside when he had a neg u/a had a very sensitive e.coli present to change antibiotics to merrem/doxy, to cover atypicals in lung as well as anaerobes as pt is high risk for aspiration get RUQ u/s to verify the GB is ok and not the source for infection if diarrhea persists to get abd/pelv CT start probiotics 01/01 - improved WBC but with abd pain and pus like material in stool to order abd/pelv CT with oral contrast urine cx was neg abd u/s did not show gallstones and only mildly thickened GB wall, no GB distension 01/02 - CT abd/pelv shows proctitis/distal colitis, stool is less smelly WBC back to WNL continue with merrem/doxy at present I suspect the colon was the source of his sepsis, consider GI consult 2) lung nodules with tree-in bud formation unable to get sputum cx change antibiotics to doxy/merrem to cover atypicals and anaerobes check ESR, HARESH, ANCA check beta d glucan (doubt fungal disease but will check) atypical mycobacteria is possible but would not explain his septic picture, to check quant TB gold though pt will need follow chest CT in a few months 01/01 - continue with doxy/merrem for possible aspiration pneumonia and HCAP 01/02 - lungs are stable 01/03 - procalcitonin is improving, to repeat in a.m. continue with doxy/merrem, day 4 01/04 - stable continue for 8 day course of doxy/merrem (thru 01/07) 3) diarrhea c.dif was neg, stool cx is NGTD doubt he has a parasitic infection start probiotic if abd u/s is neg, to consider ct abd if diarrhea persists 01/01 - to get CT abd/pelv 01/02 - colitis/proctitis noted on CT less stool but still liquid but also less smelly consider GI consult, pt likely to need GI follow-up after this acute event 01/03 - still with liquid brown/del rio stool, no pus or mucus appreciated neg c.dif and stool is less smelly on merrem/doxy consider GI input 01/04 - seen by GI, O& P ordered 4) CVA with R sided hemiplegia 5) elevated alk phos check RUQ u/s 01/01 - contracted GB, no stone on u/s 6) DM improved sugars here 7) rapid a-fib pt is on cardizem drip Consultation Date/Type/Reason Admit Date/Time Dec 29, 2018 at 01:35 Initial Consult Date 12/31/18 Type of Consult ID Date/Time of Note DATE: 01/04/19 TIME: 08:14 24 HR Interval Summary Free Text/Dictation pt asleep no new problems reported stool a bit less watery Exam/Review of Systems Exam Vitals Vital Signs Date Temp Pulse Resp B/P (MAP) Pulse Ox O2 O2 Flow FiO2 Time Delivery Rate 01/04/19 97.4 83 22 133/66 96 Room Air 07:22 (88) 01/03/19 21 23:39 Intake and Output 01/03/19 01/03/19 01/04/19 1515:00 23:00 07:00 IntakeIntake Total 420 ml 230 ml 730 ml OutputOutput Total 990 ml 590 ml 1200 ml BalanceBalance -570 ml -360 ml -470 ml Constitutional: non-verbal Respiratory: clear to auscultation Cardiovascular: regular rate and rhythm Gastrointestinal: soft, non-tender Results Result Diagram: 01/04/19 0513 01/04/19 0513 Results 24hrs Laboratory Tests Test 01/03/19 09:54 01/03/19 12:03 01/03/19 16:21 01/03/19 21:41 Bedside Glucose 157 113 151 178 Test 01/04/19 01:51 01/04/19 05:13 01/04/19 05:31 Bedside Glucose 166 159 White Blood Count 6.5 Red Blood Count 3.33 L Hemoglobin 9.8 L Hematocrit 29.4 L Mean Corpuscular 88.3 Volume Mean Corpuscular 29.4 Hemoglobin Mean Corpuscular 33.3 Hemoglobin Concent Red Cell 14.8 H Distribution Width Platelet Count 232 # Mean Platelet Volume 9.6 Immature 5.800 H Granulocytes % Neutrophils % Segmented 54 Neutrophils % (Manual) Band Neutrophils % 11 H (Manual) Lymphocytes % Lymphocytes % 20 (Manual) Reactive Lymphocytes 2 H % (Manual) Monocytes % Monocytes % (Manual) 10 Eosinophils % Eosinophils % 2 (Manual) Basophils % Myelocytes % 1 H (Manual) Nucleated Red Blood 0.0 Cells % Immature 0.380 H Granulocytes # Neutrophils # Neutrophils # 3.6 (Manual) Band Neutrophils # 0.7 H Lymphocytes (Manual) 1.3 Lymphocytes # Reactive Lymphocytes 0.1 H # Monocytes # Monocytes # (Manual) 0.6 Eosinophils # Basophils # Myelocytes # 0.0 Nucleated Red Blood Cells # Platelet Estimate NORMAL Giant Platelets 1 H Poikilocytosis 2+ Anisocytosis 1+ Microcytosis 1+ Sodium Level 137 Potassium Level 4.5 Chloride Level 107 Carbon Dioxide Level 25 Anion Gap 5 Blood Urea Nitrogen 13 Creatinine 0.45 L Est Glomerular Filtrat Rate mL/min Glucose Level 144 Calcium Level 8.6 Medications Medication Current Medications Albuterol/ Ipratropium (Duoneb) 3 ml Q2H RESP THERAPY PRN NEB SHORTNESS OF BREATH; Start 12/29/18 at 03:30 Acetaminophen (Tylenol Liquid) 650 mg Q6H PRN PO PAIN LEVEL 1-3 OR FEVER Last administered on 01/03/19at 21:52; Admin Dose 650 MG; Start 12/29/18 at 03:30 Heparin Sodium (Porcine) (Heparin (5000 Units/1ml)) 5,000 unit Q12 SC Last administered on 01/03/19at 21:43; Admin Dose 5,000 UNIT; Start 12/29/18 at 09:00 Ondansetron HCl (Zofran Inj) 4 mg Q4H PRN IV NAUSEA AND/OR VOMITING; Start 12/29/18 at 08:30 Insulin Aspart (Novolog Insulin Pen) NOVOLOG *MODERATE* ALGORI... Q4 SC Last administered on 01/04/19at 05:35; Admin Dose 2 UNIT; Start 12/29/18 at 09:00 Diagnostic Test (Pha) (Accu-Chek) 1 ea 02 XX Last administered on 12/31/18at 01:56; Admin Dose 1 EA; Start 12/30/18 at 02:00 Miscellaneous Information 1 ea NOTE XX ; Start 12/29/18 at 09:00 Glucose (Glutose) 15 gm Q15M PRN PO DECREASED GLUCOSE; Start 12/29/18 at 09:00 Glucose (Glutose) 22.5 gm Q15M PRN PO DECREASED GLUCOSE; Start 12/29/18 at 09:00 Dextrose (D50w Syringe) 25 ml Q15M PRN IV DECREASED GLUCOSE; Start 12/29/18 at 09:00 Dextrose (D50w Syringe) 50 ml Q15M PRN IV DECREASED GLUCOSE; Start 12/29/18 at 09:00 Glucagon (Glucagen) 1 mg Q15M PRN IM DECREASED GLUCOSE; Start 12/29/18 at 09:00 Glucose (Glutose) 15 gm Q15M PRN BUCCAL DECREASED GLUCOSE; Start 12/29/18 at 09:00 Atorvastatin Calcium (Lipitor) 40 mg HS GTB Last administered on 01/03/19 21:38; Admin Dose 40 MG; Start 12/29/18 at 21:00 Diltiazem HCl (Cardizem Iv) 5 mg Q4H PRN IV NOTE Last administered on 12/30/18at 23:56; Admin Dose 5 MG; Start 12/30/18 at 23:30 Meropenem/Sodium Chloride 50 ml @ 100 mls/hr Q8 IVPB Last administered on 01/04/19at 05:36; Admin Dose 100 MLS/HR; Start 12/31/18 at 14:00 Doxycycline Hyclate (Vibramycin) 100 mg BID GTB Last administered on 01/03/19at 23:24; Admin Dose 100 MG; Start 12/31/18 at 09:00 Lactobacillus Acidophilus (Florajen3 Capsule) 1 each BID PO Last administered on 01/03/19at 21:38; Admin Dose 1 EACH; Start 12/31/18 at 09:00 Insulin Glargine (Lantus) 23 units DAILY@2000 SC Last administered on 01/03/19at 21:46; Admin Dose 23 UNITS; Start 12/31/18 at 20:00 Albuterol/ Ipratropium (Duoneb) 3 ml Q8H RESP THERAPY HHN Last administered on 01/03/19at 23:39; Admin Dose 3 ML; Start 01/02/19 at 16:00 Famotidine (Pepcid) 20 mg BID GTB Last administered on 01/03/19at 21:38; Admin Dose 20 MG; Start 01/03/19 at 21:00 Cholestyramine Resin (Questran Light) 4 gm Q12H PO Last administered on 01/03/19at 23:24; Admin Dose 4 GM; Start 01/03/19 at 23:00 BORIS WATSON MD Jan 04, 2019 08:17
[2019-01-04] MEDS: ALBUTEROL/IPRATROPIUM (NEB) 3 ML AMP HHN SCH ×3 (09:25→23:46)
[2019-01-04] MEDS: FAMOTIDINE 20 MG TAB GTB SCH ×2 (10:47→20:50)
[2019-01-04] MEDS: ACETAMINOPHEN 650MG/20.3ML CUP PO PRN (10:47)
[2019-01-04] MEDS: DOXYCYCLINE 100 MG TAB GTB SCH ×2 (10:47→20:50)
[2019-01-04] MEDS: L ACIDOPHIL/B LACTIS/B LONGUM CAPSULE PO SCH ×2 (10:47→20:50)
[2019-01-04] MEDS: CHOLESTYRAMINE (LIGHT) 4 GM PACKET PO SCH (10:47)
[2019-01-04] MEDS: HEPARIN 5,000 UNIT/1 ML VIAL SC SCH ×2 (10:49→20:53)
--- NOTE | 2019-01-04 11:42 | CONS ---
Consult Date/Type/Reason Admit Date/Time Dec 29, 2018 at 01:35 Initial Consult Date 12/31/18 Type of Consult Pulmonary Date/Time of Note DATE: 01/04/19 TIME: 11:40 Subjective Remains comfortable. Objective Vital Signs Date Temp Pulse Resp B/P (MAP) Pulse Ox O2 O2 Flow FiO2 Time Delivery Rate 01/04/19 80 17 96 21 09:26 01/04/19 97.4 133/66 Room Air 07:22 (88) Intake and Output 01/03/19 01/03/19 01/04/19 1414:59 22:59 06:59 IntakeIntake Total 470 ml 270 ml 730 ml OutputOutput Total 940 ml 740 ml 1200 ml BalanceBalance -470 ml -470 ml -470 ml Vent Setting Fraction of Inspired Oxygen pe: 21 Results/Medications Result Diagram: 01/04/19 0513 01/04/19 0513 Results 24 hrs Laboratory Tests Test 01/03/19 12:03 01/03/19 16:21 01/03/19 21:41 01/04/19 01:51 Bedside Glucose 113 151 178 166 Test 01/04/19 05:13 01/04/19 05:31 01/04/19 10:45 White Blood Count 6.5 Red Blood Count 3.33 L Hemoglobin 9.8 L Hematocrit 29.4 L Mean Corpuscular 88.3 Volume Mean Corpuscular 29.4 Hemoglobin Mean Corpuscular 33.3 Hemoglobin Concent Red Cell 14.8 H Distribution Width Platelet Count 232 # Mean Platelet Volume 9.6 Immature 5.800 H Granulocytes % Neutrophils % Segmented 54 Neutrophils % (Manual) Band Neutrophils % 11 H (Manual) Lymphocytes % Lymphocytes % 20 (Manual) Reactive Lymphocytes 2 H % (Manual) Monocytes % Monocytes % (Manual) 10 Eosinophils % Eosinophils % 2 (Manual) Basophils % Myelocytes % 1 H (Manual) Nucleated Red Blood 0.0 Cells % Immature 0.380 H Granulocytes # Neutrophils # Neutrophils # 3.6 (Manual) Band Neutrophils # 0.7 H Lymphocytes (Manual) 1.3 Lymphocytes # Reactive Lymphocytes 0.1 H # Monocytes # Monocytes # (Manual) 0.6 Eosinophils # Basophils # Myelocytes # 0.0 Nucleated Red Blood Cells # Platelet Estimate NORMAL Giant Platelets 1 H Poikilocytosis 2+ Anisocytosis 1+ Microcytosis 1+ Sodium Level 137 Potassium Level 4.5 Chloride Level 107 Carbon Dioxide Level 25 Anion Gap 5 Blood Urea Nitrogen 13 Creatinine 0.45 L Est Glomerular Filtrat Rate mL/min Glucose Level 144 Calcium Level 8.6 Procalcitonin 1.17 H Bedside Glucose 159 162 Medications Current Medications Albuterol/ Ipratropium (Duoneb) 3 ml Q2H RESP THERAPY PRN NEB SHORTNESS OF BREATH; Start 12/29/18 at 03:30 Acetaminophen (Tylenol Liquid) 650 mg Q6H PRN PO PAIN LEVEL 1-3 OR FEVER Last administered on 01/04/19 10:47; Admin Dose 650 MG; Start 12/29/18 at 03:30 Heparin Sodium (Porcine) (Heparin (5000 Units/1ml)) 5,000 unit Q12 SC Last administered on 01/04/19 10:49; Admin Dose 5,000 UNIT; Start 12/29/18 at 09:00 Ondansetron HCl (Zofran Inj) 4 mg Q4H PRN IV NAUSEA AND/OR VOMITING; Start 12/29/18 at 08:30 Insulin Aspart (Novolog Insulin Pen) NOVOLOG *MODERATE* ALGORI... Q4 SC Last administered on 01/04/19 10:49; Admin Dose 2 UNIT; Start 12/29/18 at 09:00 Diagnostic Test (Pha) (Accu-Chek) 1 ea 02 XX Last administered on 12/31/18at 01:56; Admin Dose 1 EA; Start 12/30/18 at 02:00 Miscellaneous Information 1 ea NOTE XX ; Start 12/29/18 at 09:00 Glucose (Glutose) 15 gm Q15M PRN PO DECREASED GLUCOSE; Start 12/29/18 at 09:00 Glucose (Glutose) 22.5 gm Q15M PRN PO DECREASED GLUCOSE; Start 12/29/18 at 09:00 Dextrose (D50w Syringe) 25 ml Q15M PRN IV DECREASED GLUCOSE; Start 12/29/18 at 09:00 Dextrose (D50w Syringe) 50 ml Q15M PRN IV DECREASED GLUCOSE; Start 12/29/18 at 09:00 Glucagon (Glucagen) 1 mg Q15M PRN IM DECREASED GLUCOSE; Start 12/29/18 at 09:00 Glucose (Glutose) 15 gm Q15M PRN BUCCAL DECREASED GLUCOSE; Start 12/29/18 at 09:00 Atorvastatin Calcium (Lipitor) 40 mg HS GTB Last administered on 01/03/19 21:38; Admin Dose 40 MG; Start 12/29/18 at 21:00 Diltiazem HCl (Cardizem Iv) 5 mg Q4H PRN IV NOTE Last administered on 12/30/18 23:56; Admin Dose 5 MG; Start 12/30/18 at 23:30 Meropenem/Sodium Chloride 50 ml @ 100 mls/hr Q8 IVPB Last administered on 01/04 05:36; Admin Dose 100 MLS/HR; Start 12/31/18 at 14:00 Doxycycline Hyclate (Vibramycin) 100 mg BID GTB Last administered on 01/04/19 10:47; Admin Dose 100 MG; Start 12/31/18 at 09:00 Lactobacillus Acidophilus (Florajen3 Capsule) 1 each BID PO Last administered on 01/04/19 10:47; Admin Dose 1 EACH; Start 12/31/18 at 09:00 Insulin Glargine (Lantus) 23 units DAILY@2000 SC Last administered on 01/03/19 21:46; Admin Dose 23 UNITS; Start 12/31/18 at 20:00 Albuterol/ Ipratropium (Duoneb) 3 ml Q8H RESP THERAPY HHN Last administered on 01/04/19 09:25; Admin Dose 3 ML; Start 01/02/19 at 16:00 Famotidine (Pepcid) 20 mg BID GTB Last administered on 01/04/19 10:47; Admin Dose 20 MG; Start 01/03/19 at 21:00 Cholestyramine Resin (Questran Light) 4 gm Q12H PO Last administered on 01/04/19 10:47; Admin Dose 4 GM; Start 01/03/19 at 23:00 Assessment/Plan Hospital Course (Demo Recall) Assessment and recommendations; 1. Resolving sepsis and septic shock. 2. Improved encephalopathy 3. Hx diabetes. Plan Aspiration precautions. pt ot MADELINE KRAUSE MD, [facility] Jan 04, 2019 11:42
[2019-01-04 13:40] VITALS: BP 121/56; PULSE 83; RESP 18
--- NOTE | 2019-01-04 16:41 | CONS ---
Assessment/Plan Assessment/Plan Assessment/Plan (Daily) IMPRESSION: 1. Septic shock secondary to pneumonia. 2. Atrial fibrillation. The patient is now in normal sinus rhythm. 3. Diabetes mellitus. 4. Cerebrovascular accident. 5. 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 So far, all the cultures and Clostridium difficile has been negative. 6. Hypertension. 7. Hyperlipidemia. 8. Proctitis on the CAT scan. It could be inflammatory or due to the balloon from rectal tube. Plan Continue present care Continue Questran Awaiting stool for ova parasites report Consultation Date/Type/Reason Admit Date/Time Dec 29, 2018 at 01:35 Initial Consult Date 12/31/18 Date/Time of Note DATE: 01/04/19 TIME: 16:40 24 HR Interval Summary Constitutional: improved Exam/Review of Systems Exam Vitals Vital Signs Date Temp Pulse Resp B/P (MAP) Pulse Ox O2 O2 Flow FiO2 Time Delivery Rate 01/04/19 98.0 83 18 121/56 97 13:40 (77) 01/04/19 21 09:26 01/04/19 Room Air 07:22 Intake and Output 01/03/19 01/03/19 01/04/19 1515:00 23:00 07:00 IntakeIntake Total 420 ml 230 ml 730 ml OutputOutput Total 990 ml 590 ml 1200 ml BalanceBalance -570 ml -360 ml -470 ml Constitutional: alert Neck: non-tender Cardiovascular: regular rate and rhythm, nl pulses Results Result Diagram: 01/04/19 0513 01/04/19 0513 Results 24hrs Laboratory Tests Test 01/03/19 21:41 01/04/19 01:51 01/04/19 05:13 01/04/19 05:31 Bedside Glucose 178 166 159 White Blood Count 6.5 Red Blood Count 3.33 L Hemoglobin 9.8 L Hematocrit 29.4 L Mean Corpuscular 88.3 Volume Mean Corpuscular 29.4 Hemoglobin Mean Corpuscular 33.3 Hemoglobin Concent Red Cell 14.8 H Distribution Width Platelet Count 232 # Mean Platelet Volume 9.6 Immature 5.800 H Granulocytes % Neutrophils % Segmented 54 Neutrophils % (Manual) Band Neutrophils % 11 H (Manual) Lymphocytes % Lymphocytes % 20 (Manual) Reactive Lymphocytes 2 H % (Manual) Monocytes % Monocytes % (Manual) 10 Eosinophils % Eosinophils % 2 (Manual) Basophils % Myelocytes % 1 H (Manual) Nucleated Red Blood 0.0 Cells % Immature 0.380 H Granulocytes # Neutrophils # Neutrophils # 3.6 (Manual) Band Neutrophils # 0.7 H Lymphocytes (Manual) 1.3 Lymphocytes # Reactive Lymphocytes 0.1 H # Monocytes # Monocytes # (Manual) 0.6 Eosinophils # Basophils # Myelocytes # 0.0 Nucleated Red Blood Cells # Platelet Estimate NORMAL Giant Platelets 1 H Poikilocytosis 2+ Anisocytosis 1+ Microcytosis 1+ Sodium Level 137 Potassium Level 4.5 Chloride Level 107 Carbon Dioxide Level 25 Anion Gap 5 Blood Urea Nitrogen 13 Creatinine 0.45 L Est Glomerular Filtrat Rate mL/min Glucose Level 144 Calcium Level 8.6 Procalcitonin 1.17 H Test 01/04/19 10:45 01/04/19 13:26 Bedside Glucose 162 155 Medications Medication Current Medications Albuterol/ Ipratropium (Duoneb) 3 ml Q2H RESP THERAPY PRN NEB SHORTNESS OF BREATH; Start 12/29/18 at 03:30 Acetaminophen (Tylenol Liquid) 650 mg Q6H PRN PO PAIN LEVEL 1-3 OR FEVER Last administered on 01/04/19at 10:47; Admin Dose 650 MG; Start 12/29/18 at 03:30 Heparin Sodium (Porcine) (Heparin (5000 Units/1ml)) 5,000 unit Q12 SC Last administered on 01/04/19at 10:49; Admin Dose 5,000 UNIT; Start 12/29/18 at 09:00 Ondansetron HCl (Zofran Inj) 4 mg Q4H PRN IV NAUSEA AND/OR VOMITING; Start 12/29/18 at 08:30 Insulin Aspart (Novolog Insulin Pen) NOVOLOG *MODERATE* ALGORI... Q4 SC Last administered on 01/04/19 13:29; Admin Dose 2 UNIT; Start 12/29/18 at 09:00 Diagnostic Test (Pha) (Accu-Chek) 1 ea 02 XX Last administered on 12/31/18at 01:56; Admin Dose 1 EA; Start 12/30/18 at 02:00 Miscellaneous Information 1 ea NOTE XX ; Start 12/29/18 at 09:00 Glucose (Glutose) 15 gm Q15M PRN PO DECREASED GLUCOSE; Start 12/29/18 at 09:00 Glucose (Glutose) 22.5 gm Q15M PRN PO DECREASED GLUCOSE; Start 12/29/18 at 09:00 Dextrose (D50w Syringe) 25 ml Q15M PRN IV DECREASED GLUCOSE; Start 12/29/18 at 09:00 Dextrose (D50w Syringe) 50 ml Q15M PRN IV DECREASED GLUCOSE; Start 12/29/18 at 09:00 Glucagon (Glucagen) 1 mg Q15M PRN IM DECREASED GLUCOSE; Start 12/29/18 at 09:00 Glucose (Glutose) 15 gm Q15M PRN BUCCAL DECREASED GLUCOSE; Start 12/29/18 at 09:00 Atorvastatin Calcium (Lipitor) 40 mg HS GTB Last administered on 01/03/19at 2 1:38; Admin Dose 40 MG; Start 12/29/18 at 21:00 Diltiazem HCl (Cardizem Iv) 5 mg Q4H PRN IV NOTE Last administered on 12/30/18at 23:56; Admin Dose 5 MG; Start 12/30/18 at 23:30 Meropenem/Sodium Chloride 50 ml @ 100 mls/hr Q8 IVPB Last administered on 01/04/19at 14:25; Admin Dose 100 MLS/HR; Start 12/31/18 at 14:00 Doxycycline Hyclate (Vibramycin) 100 mg BID GTB Last administered on 01/04/19at 10:47; Admin Dose 100 MG; Start 12/31/18 at 09:00 Lactobacillus Acidophilus (Florajen3 Capsule) 1 each BID PO Last administered on 01/04/19at 10:47; Admin Dose 1 EACH; Start 12/31/18 at 09:00 Insulin Glargine (Lantus) 23 units DAILY@2000 SC Last administered on 01/03/19at 21:46; Admin Dose 23 UNITS; Start 12/31/18 at 20:00 Albuterol/ Ipratropium (Duoneb) 3 ml Q8H RESP THERAPY HHN Last administered on 01/04/19at 09:25; Admin Dose 3 ML; Start 01/02/19 at 16:00 Famotidine (Pepcid) 20 mg BID GTB Last administered on 01/04/19at 10:47; Admin Dose 20 MG; Start 01/03/19 at 21:00 Cholestyramine Resin (Questran Light) 4 gm Q12H PO Last administered on 01/04/19at 10:47; Admin Dose 4 GM; Start 01/03/19 at 23:00 HERMES GONSALEZ MD Jan 04, 2019 16:41
[2019-01-04 20:13] VITALS: BP 117/56; PULSE 78; RESP 16
[2019-01-04] MEDS: ATORVASTATIN 40 MG TAB GTB SCH (20:50)
[2019-01-04] MEDS: INSULIN GLARGINE [LANTus] (100 UNITS/ML) SYG SC SCH (20:53)
--- NOTE | 2019-01-04 21:23 | PN ---
DATE: 01/04/2019 SUBJECTIVE: The patient is lethargic today. OBJECTIVE: VITAL SIGNS: Temperature 98.0, blood pressure 120/56, O2 saturation 97% on room air. CHEST: Clear anteriorly. ABDOMEN: Soft, nontender, no hepatosplenomegaly. EXTREMITIES: Decreased edema. Dr. Joyce's GI consultation greatly appreciated. Stool for C. difficile is negative. Blood glucose levels normoglycemic range. Sodium 137, potassium 4.5, BUN 13, creatinine 0.45. Procalcitonin 1.17 . IMPRESSION 1. Septic shock, status post pneumonia, blood pressure holding well off pressors. 2. Atrial fibrillation, resolved. The patient is in normal sinus rhythm. 3. Diabetes mellitus type 2, well controlled. 4. Status post cerebrovascular accident with right hemiparesis. 5. Hypertension, by history. 6. Hyperlipidemia. PLAN: Stool studies will be obtained per Dr. Joyce including for ova and parasites. Continue IV an tibiotics and observe. Dictated By: JP THACKER MD SR/DAXA Conf#: [id number] DID#: [id number]
[2019-01-05] MEDS: INSULIN ASPART [NOVOLOG] 3 ML PEN SC SCH ×6 (01:00→20:54)
[2019-01-05] MEDS: ACCU-CHEK XX SCH (02:00)
[2019-01-05] MEDS: CHOLESTYRAMINE (LIGHT) 4 GM PACKET PO SCH ×3 (02:01→22:15)
[2019-01-05 02:10] VITALS: BP 109/55; PULSE 82; RESP 16
[2019-01-05] MEDS: MEROPENEM 1 GM/50ML(PMX) 50 ML IVPB SCH ×3 (05:29→22:13)
[2019-01-05 07:30] VITALS: BP 128/75; PULSE 79; RESP 19
[2019-01-05] MEDS: ALBUTEROL/IPRATROPIUM (NEB) 3 ML AMP HHN SCH ×2 (08:18→16:32)
[2019-01-05] MEDS: FAMOTIDINE 20 MG TAB GTB SCH ×2 (09:37→20:51)
[2019-01-05] MEDS: DOXYCYCLINE 100 MG TAB GTB SCH ×2 (09:37→20:51)
[2019-01-05] MEDS: L ACIDOPHIL/B LACTIS/B LONGUM CAPSULE PO SCH ×2 (09:37→20:51)
[2019-01-05] MEDS: HEPARIN 5,000 UNIT/1 ML VIAL SC SCH ×2 (10:40→20:52)
[2019-01-05 14:04] VITALS: BP 146/76; PULSE 78; RESP 18
--- NOTE | 2019-01-05 14:55 | CONS ---
Assessment/Plan Assessment/Plan Assessment/Plan (Daily) Assessment/Plan Assessment/Plan Assessment/Plan (Daily) IMPRESSION: 1. Septic shock secondary to pneumonia. 2. Atrial fibrillation. The patient is now in normal sinus rhythm. 3. Diabetes mellitus. 4. Cerebrovascular accident. 5. 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 So far, all the cultures and Clostridium difficile has been negative. 6. Hypertension. 7. Hyperlipidemia. 8. Proctitis on the CAT scan. It could be inflammatory or due to the balloon from rectal tube. Plan Continue present care Continue Questran Awaiting stool for ova parasites report Consultation Date/Type/Reason Admit Date/Time Dec 29, 2018 at 01:35 Initial Consult Date 12/31/18 Date/Time of Note DATE: 01/05/19 TIME: 14:54 24 HR Interval Summary Free Text/Dictation Liquidy foul-smelling stool Exam/Review of Systems Exam Vitals Vital Signs Date Temp Pulse Resp B/P (MAP) Pulse Ox O2 O2 Flow FiO2 Time Delivery Rate 01/05/19 98.6 78 18 146/76 97 Room Air 14:04 (99) 01/05/19 21 08:18 Intake and Output 01/04/19 01/04/19 01/05/19 1515:00 23:00 07:00 IntakeIntake Total 100 ml OutputOutput Total 450 ml 1400 ml BalanceBalance -450 ml -1300 ml Constitutional: alert Results Result Diagram: 01/04/19 0513 01/04/19 0513 Results 24hrs Laboratory Tests Test 01/04/19 20:49 01/05/19 02:02 01/05/19 05:34 01/05/19 08:27 Bedside Glucose 151 122 129 133 Test 01/05/19 13:11 Bedside Glucose 157 Medications Medication Current Medications Albuterol/ Ipratropium (Duoneb) 3 ml Q2H RESP THERAPY PRN NEB SHORTNESS OF BREATH; Start 12/29/18 at 03:30 Acetaminophen (Tylenol Liquid) 650 mg Q6H PRN PO PAIN LEVEL 1-3 OR FEVER Last administered on 01/04/19at 10:47; Admin Dose 650 MG; Start 12/29/18 at 03:30 Heparin Sodium (Porcine) (Heparin (5000 Units/1ml)) 5,000 unit Q12 SC Last administered on 01/05/19at 10:40; Admin Dose 5,000 UNIT; Start 12/29/18 at 09:00 Ondansetron HCl (Zofran Inj) 4 mg Q4H PRN IV NAUSEA AND/OR VOMITING; Start 12/29/18 at 08:30 Insulin Aspart (Novolog Insulin Pen) NOVOLOG *MODERATE* ALGORI... Q4 SC Last administered on 01/05/19at 13:15; Admin Dose 2 UNIT; Start 12/29/18 at 09:00 Diagnostic Test (Pha) (Accu-Chek) 1 ea 02 XX Last administered on 12/31/18at 01:56; Admin Dose 1 EA; Start 12/30/18 at 02:00 Miscellaneous Information 1 ea NOTE XX ; Start 12/29/18 at 09:00 Glucose (Glutose) 15 gm Q15M PRN PO DECREASED GLUCOSE; Start 12/29/18 at 09:00 Glucose (Glutose) 22.5 gm Q15M PRN PO DECREASED GLUCOSE; Start 12/29/18 at 09:00 Dextrose (D50w Syringe) 25 ml Q15M PRN IV DECREASED GLUCOSE; Start 12/29/18 at 09:00 Dextrose (D50w Syringe) 50 ml Q15M PRN IV DECREASED GLUCOSE; Start 12/29/18 at 09:00 Glucagon (Glucagen) 1 mg Q15M PRN IM DECREASED GLUCOSE; Start 12/29/18 at 09:00 Glucose (Glutose) 15 gm Q15M PRN BUCCAL DECREASED GLUCOSE; Start 12/29/18 at 09:00 Atorvastatin Calcium (Lipitor) 40 mg HS GTB Last administered on 01/04/19at 20:50; Admin Dose 40 MG; Start 12/29/18 at 21:00 Diltiazem HCl (Cardizem Iv) 5 mg Q4H PRN IV NOTE Last administered on 12/30/18at 23:56; Admin Dose 5 MG; Start 12/30/18 at 23:30 Meropenem/Sodium Chloride 50 ml @ 100 mls/hr Q8 IVPB Last administered on 01/05/19at 13:09; Admin Dose 100 MLS/HR; Start 12/31/18 at 14:00 Doxycycline Hyclate (Vibramycin) 100 mg BID GTB Last administered on 01/05/19at 09:37; Admin Dose 100 MG; Start 12/31/18 at 09:00 Lactobacillus Acidophilus (Florajen3 Capsule) 1 each BID PO Last administered on 01/05/19 09:37; Admin Dose 1 EACH; Start 12/31/18 at 09:00 Insulin Glargine (Lantus) 23 units DAILY@2000 SC Last administered on 01/04/19 20:53; Admin Dose 23 UNITS; Start 12/31/18 at 20:00 Albuterol/ Ipratropium (Duoneb) 3 ml Q8H RESP THERAPY HHN Last administered on 01/05/19 08:18; Admin Dose 3 ML; Start 01/02/19 at 16:00 Famotidine (Pepcid) 20 mg BID GTB Last administered on 01/05/19 09:37; Admin Dose 20 MG; Start 01/03/19 at 21:00 Cholestyramine Resin (Questran Light) 4 gm Q12H PO Last administered on 01/05/19 11:03; Admin Dose 4 GM; Start 01/03/19 at 23:00 HERMES GONSALEZ MD Jan 05, 2019 14:55
--- NOTE | 2019-01-05 17:46 | PN ---
DATE: 01/05/2019 SUBJECTIVE: Chart reviewed. The patient on room air saturating 97% and does not appear in acute dis tress. PHYSICAL EXAMINATION: VITAL SIGNS: Blood pressure 146/76, pulse 78, respiration 18, temperature 98.6. HEENT: Pupils are equal and react to light. NECK: Supple, no JVD noted, no cervical adenopathy noted. LUNGS: Fair breath sounds bilaterally. CARDIOVASCULAR: S1, S2 normal. ABDOMEN: Soft, nontender, no organomegaly or masses noted. EXTREMITIES: No clubbing or cyanosis noted. NEUROLOGIC: No changes. IMPRESSION: 1. Status post septic shock. 2. Improving encephalopathy. 3. History of diabetes. PLAN: 1. Aspiration precautions. 2. Complete antibiotics. Dictated By: LUIS FLEMING MD, MA/DAXA Conf#: [id number] DID#: [id number]
--- NOTE | 2019-01-05 17:56 | PN ---
DATE: 01/05/2019 SUBJECTIVE: The patient is more awake and responsive. OBJECTIVE: VITAL SIGNS: Temperature 98.6, blood pressure 146/76, O2 sats 97%. HEENT: Head normocephalic. Moderate pallor without cyanosis. Tongue is coated, dry. NECK: Supple. CHEST: Clinically clear anteriorly. HEART: S1, S2 heard with no definite gallops. EXTREMITIES: No edema. Dr. Joyce's GI consultation greatly appreciated and discussed with Dr. Joyce. IMPRESSION: 1. Status post septic shock, status post pneumonia. 2. Intermittent atrial fibrillation present, patient in normal sinus rhythm. 3. Diabetes mellitus type 2, well controlled. 4. Status post cerebrovascular accident with right hemiparesis. 5. Diabetic enteropathy with diarrhea. Cultures have been negative. 6. Hyperlipidemia. PLAN: Continue IV Merrem and repeat chest x-ray in a.m. and revaluate. Dictated By: JP THACKER MD, SR/DAXA Conf#: [id number] DID#: [id number]
[2019-01-05 20:30] VITALS: BP 154/69; PULSE 84; RESP 18
[2019-01-05] MEDS: ATORVASTATIN 40 MG TAB GTB SCH (20:51)
[2019-01-05] MEDS: INSULIN GLARGINE [LANTus] (100 UNITS/ML) SYG SC SCH (20:53)
[2019-01-06] MEDS: ALBUTEROL/IPRATROPIUM (NEB) 3 ML AMP HHN SCH ×3 (00:37→15:35)
[2019-01-06] MEDS: INSULIN ASPART [NOVOLOG] 3 ML PEN SC SCH ×6 (01:00→20:23)
[2019-01-06 01:34] VITALS: BP 134/63; PULSE 78; RESP 22
[2019-01-06] MEDS: ACCU-CHEK XX SCH (02:00)
[2019-01-06] MEDS: MEROPENEM 1 GM/50ML(PMX) 50 ML IVPB SCH ×3 (05:09→22:18)
--- NOTE | 2019-01-06 07:24 | CONS ---
Assessment/Plan Assessment/Plan Hospital Course (Demo Recall) 1) sepsis, unclear etiology (more likely the colon) diarrhea but neg c.dif and neg stool cx to date pt has some nodular densities and tree in bud formation could have pneumonitis but no F or cough is present alk phos is mildly elevated urine does not show significant pyuria and urine cx is NGTD urine cx from outside when he had a neg u/a had a very sensitive e.coli present to change antibiotics to merrem/doxy, to cover atypicals in lung as well as anaerobes as pt is high risk for aspiration get RUQ u/s to verify the GB is ok and not the source for infection if diarrhea persists to get abd/pelv CT start probiotics 01/01 - improved WBC but with abd pain and pus like material in stool to order abd/pelv CT with oral contrast urine cx was neg abd u/s did not show gallstones and only mildly thickened GB wall, no GB distension 01/02 - CT abd/pelv shows proctitis/distal colitis, stool is less smelly WBC back to WNL continue with merrem/doxy at present I suspect the colon was the source of his sepsis, consider GI consult 2) lung nodules with tree-in bud formation unable to get sputum cx change antibiotics to doxy/merrem to cover atypicals and anaerobes check ESR, HARESH, ANCA check beta d glucan (doubt fungal disease but will check) atypical mycobacteria is possible but would not explain his septic picture, to check quant TB gold though pt will need follow chest CT in a few months 01/01 - continue with doxy/merrem for possible aspiration pneumonia and HCAP 01/02 - lungs are stable 01/03 - procalcitonin is improving, to repeat in a.m. continue with doxy/merrem, day 4 01/04 - stable continue for 8 day course of doxy/merrem (thru 01/07) 01/06 - CXR results noted day 7 of doxy/merrem procalcitonin continues to improve, repeat in a.m. 3) diarrhea c.dif was neg, stool cx is NGTD doubt he has a parasitic infection start probiotic if abd u/s is neg, to consider ct abd if diarrhea persists 01/01 - to get CT abd/pelv 01/02 - colitis/proctitis noted on CT less stool but still liquid but also less smelly consider GI consult, pt likely to need GI follow-up after this acute event 01/03 - still with liquid brown/del rio stool, no pus or mucus appreciated neg c.dif and stool is less smelly on merrem/doxy consider GI input 01/04 - seen by GI, O& P ordered 01/06 - improved 4) CVA with R sided hemiplegia 5) elevated alk phos check RUQ u/s 01/01 - contracted GB, no stone on u/s 6) DM improved sugars here 7) rapid a-fib pt is on cardizem drip Consultation Date/Type/Reason Admit Date/Time Dec 29, 2018 at 01:35 Initial Consult Date 12/31/18 Type of Consult ID Date/Time of Note DATE: 01/06/19 TIME: 07:21 24 HR Interval Summary Free Text/Dictation spoke to nurse pt is more alert and talking to nurses in z[place]an no V one loose stool very occasional cough pt denies pain anyplace Exam/Review of Systems Exam Vitals Vital Signs Date Temp Pulse Resp B/P (MAP) Pulse Ox O2 O2 Flow FiO2 Time Delivery Rate 01/06/19 97.9 78 22 134/63 95 01:34 (86) 01/06/19 21 00:37 01/05/19 Room Air 14:04 Intake and Output 01/05/19 01/05/19 01/06/19 1515:00 23:00 07:00 IntakeIntake Total 50 ml 100 ml OutputOutput Total 900 ml BalanceBalance 50 ml -900 ml 100 ml Constitutional: alert Eyes: nl sclera Respiratory: clear to auscultation Cardiovascular: regular rate and rhythm Gastrointestinal: soft, non-tender Results Result Diagram: 01/04/19 0513 01/04/19 0513 Results 24hrs Laboratory Tests Test 01/05/19 08:27 01/05/19 13:11 01/05/19 17:56 01/05/19 20:49 Bedside Glucose 133 157 133 157 Test 01/06/19 01:03 01/06/19 05:10 Bedside Glucose 120 152 Medications Medication Current Medications Albuterol/ Ipratropium (Duoneb) 3 ml Q2H RESP THERAPY PRN NEB SHORTNESS OF BREATH; Start 12/29/18 at 03:30 Acetaminophen (Tylenol Liquid) 650 mg Q6H PRN PO PAIN LEVEL 1-3 OR FEVER Last administered on 01/04/19at 10:47; Admin Dose 650 MG; Start 12/29/18 at 03:30 Heparin Sodium (Porcine) (Heparin (5000 Units/1ml)) 5,000 unit Q12 SC Last administered on 01/05/19at 20:52; Admin Dose 5,000 UNIT; Start 12/29/18 at 09:00 Ondansetron HCl (Zofran Inj) 4 mg Q4H PRN IV NAUSEA AND/OR VOMITING; Start 12/29/18 at 08:30 Insulin Aspart (Novolog Insulin Pen) NOVOLOG *MODERATE* ALGORI... Q4 SC Last administered on 01/06/19 05:16; Admin Dose 2 UNIT; Start 12/29/18 at 09:00 Diagnostic Test (Pha) (Accu-Chek) 1 ea 02 XX Last administered on 12/31/18at 01:56; Admin Dose 1 EA; Start 12/30/18 at 02:00 Miscellaneous Information 1 ea NOTE XX ; Start 12/29/18 at 09:00 Glucose (Glutose) 15 gm Q15M PRN PO DECREASED GLUCOSE; Start 12/29/18 at 09:00 Glucose (Glutose) 22.5 gm Q15M PRN PO DECREASED GLUCOSE; Start 12/29/18 at 09:00 Dextrose (D50w Syringe) 25 ml Q15M PRN IV DECREASED GLUCOSE; Start 12/29/18 at 09:00 Dextrose (D50w Syringe) 50 ml Q15M PRN IV DECREASED GLUCOSE; Start 12/29/18 at 09:00 Glucagon (Glucagen) 1 mg Q15M PRN IM DECREASED GLUCOSE; Start 12/29/18 at 09:00 Glucose (Glutose) 15 gm Q15M PRN BUCCAL DECREASED GLUCOSE; Start 12/29/18 at 09:00 Atorvastatin Calcium (Lipitor) 40 mg HS GTB Last administered on 01/05/19at 20: 51; Admin Dose 40 MG; Start 12/29/18 at 21:00 Diltiazem HCl (Cardizem Iv) 5 mg Q4H PRN IV NOTE Last administered on 12/30/18at 23:56; Admin Dose 5 MG; Start 12/30/18 at 23:30 Meropenem/Sodium Chloride 50 ml @ 100 mls/hr Q8 IVPB Last administered on 01/06/19 05:09; Admin Dose 100 MLS/HR; Start 12/31/18 at 14:00 Doxycycline Hyclate (Vibramycin) 100 mg BID GTB Last administered on 01/05/19 20:51; Admin Dose 100 MG; Start 12/31/18 at 09:00 Lactobacillus Acidophilus (Florajen3 Capsule) 1 each BID PO Last administered on 01/05/19 20:51; Admin Dose 1 EACH; Start 12/31/18 at 09:00 Insulin Glargine (Lantus) 23 units DAILY@2000 SC Last administered on 01/05/19 20:53; Admin Dose 23 UNITS; Start 12/31/18 at 20:00 Albuterol/ Ipratropium (Duoneb) 3 ml Q8H RESP THERAPY HHN Last administered on 01/06/19 00:37; Admin Dose 3 ML; Start 01/02/19 at 16:00 Famotidine (Pepcid) 20 mg BID GTB Last administered on 01/05/19 20:51; Admin Dose 20 MG; Start 01/03/19 at 21:00 Cholestyramine Resin (Questran Light) 4 gm Q12H PO Last administered on 01/05/19 22:15; Admin Dose 4 GM; Start 01/03/19 at 23:00 BORIS WATSON MD Jan 06, 2019 07:24
[2019-01-06 08:15] VITALS: BP 133/64; PULSE 85; RESP 19
[2019-01-06] MEDS: FAMOTIDINE 20 MG TAB GTB SCH ×2 (08:26→20:20)
[2019-01-06] MEDS: DOXYCYCLINE 100 MG TAB GTB SCH ×2 (08:26→20:20)
[2019-01-06] MEDS: L ACIDOPHIL/B LACTIS/B LONGUM CAPSULE PO SCH ×2 (08:26→20:20)
[2019-01-06] MEDS: HEPARIN 5,000 UNIT/1 ML VIAL SC SCH ×2 (08:28→20:23)
[2019-01-06] MEDS: CHOLESTYRAMINE (LIGHT) 4 GM PACKET PO SCH ×2 (12:25→22:18)
--- NOTE | 2019-01-06 17:39 | PN ---
DATE: 01/06/2019 SUBJECTIVE: The patient on room air saturating 97% and does not appear in acute distress. PHYSICAL EXAMINATION: VITAL SIGNS: Blood pressure 133/64, pulse 85, respiration 19, temperature 98.3. HEENT: Pupils are equal and react to light. NECK: Supple, no JVD noted. No adenopathy noted. LUNGS: Fair breath sounds bilaterally with few scattered rhonchi. CARDIOVASCULAR: S1, S2 normal. ABDOMEN: Soft, nontender. No megaly or masses noted. EXTREMITIES: No clubbing or cyanosis noted. NEUROLOGIC: No changes. IMPRESSION: 1. Status post septic shock. 2. Encephalopathy. 3. History of diabetes mellitus. 4. History of cerebrovascular accident with right-sided hemiplegia. 5. Diabetes mellitus. 6. History of atrial fibrillation. RECOMMENDATIONS: 1. ID recommendations noted. 2. Aspiration precautions. 3. Continue antibiotics. Dictated By: LUIS FLEMING MD, MA/NTS Conf#: [id number] DID#: [id number] CC: JP THACKER MD;*EndCC*
--- NOTE | 2019-01-06 18:24 | CONS ---
Assessment/Plan Assessment/Plan Assessment/Plan (Daily) Assessment/Plan Assessment/Plan (Daily) IMPRESSION: 1. Septic shock secondary to pneumonia. 2. Atrial fibrillation. The patient is now in normal sinus rhythm. 3. Diabetes mellitus. 4. Cerebrovascular accident. 5. 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 So far, all the cultures and Clostridium difficile has been negative. Is well controlled 6. Hypertension. 7. Hyperlipidemia. 8. Proctitis on the CAT scan. It could be inflammatory or due to the balloon from rectal tube. Plan Continue present care Continue Questran Awaiting stool for ova parasites negative Consultation Date/Type/Reason Admit Date/Time Dec 29, 2018 at 01:35 Initial Consult Date 12/31/18 Date/Time of Note DATE: 01/06/19 TIME: 18:24 24 HR Interval Summary Constitutional: no complaints, improved Exam/Review of Systems Exam Vitals Vital Signs Date Temp Pulse Resp B/P (MAP) Pulse Ox O2 O2 Flow FiO2 Time Delivery Rate 01/06/19 83 18 96 21 15:48 01/06/19 98.3 133/64 Room Air 08:15 (87) Intake and Output 01/05/19 01/05/19 01/06/19 1515:00 23:00 07:00 IntakeIntake Total 50 ml 100 ml OutputOutput Total 900 ml BalanceBalance 50 ml -900 ml 100 ml Constitutional: alert, oriented, well developed Psych: no complaints, nl mood/affect Head: normocephalic, atraumatic Eyes: nl conjunctiva, EOMI, nl lids, nl sclera, PERRL ENMT: nl external ears & nose, nl lips & teeth, nl nasal mucosa & septum Neck: supple, non-tender Respiratory: clear to auscultation, normal air movement Cardiovascular: regular rate and rhythm, nl pulses Gastrointestinal: soft, nl liver, spleen, non-tender Musculoskeletal: nl extremities to inspection, nl gait and stance Extremities: normal pulses Neurological: BLUEPRINT RE[employer]UCER II-XII intact, nl mental status, nl speech, nl strength Skin: nl turgor; No rash or lesions Lymph: nl lymph nodes Results Result Diagram: 01/04/19 0513 01/04/19 0513 Results 24hrs Laboratory Tests Test 01/05/19 20:49 01/06/19 01:03 01/06/19 05:10 01/06/19 09:34 Bedside Glucose 157 120 152 166 Test 01/06/19 12:24 01/06/19 17:31 Bedside Glucose 170 157 Medications Medication Current Medications Albuterol/ Ipratropium (Duoneb) 3 ml Q2H RESP THERAPY PRN NEB SHORTNESS OF BREATH; Start 12/29/18 at 03:30 Acetaminophen (Tylenol Liquid) 650 mg Q6H PRN PO PAIN LEVEL 1-3 OR FEVER Last administered on 01/04/19at 10:47; Admin Dose 650 MG; Start 12/29/18 at 03:30 Heparin Sodium (Porcine) (Heparin (5000 Units/1ml)) 5,000 unit Q12 SC Last administered on 01/06/19at 08:28; Admin Dose 5,000 UNIT; Start 12/29/18 at 09:00 Ondansetron HCl (Zofran Inj) 4 mg Q4H PRN IV NAUSEA AND/OR VOMITING; Start 12/29/18 at 08:30 Insulin Aspart (Novolog Insulin Pen) NOVOLOG *MODERATE* ALGORI... Q4 SC Last administered on 01/06/19at 18:05; Admin Dose 2 UNIT; Start 12/29/18 at 09:00 Diagnostic Test (Pha) (Accu-Chek) 1 ea 02 XX Last administered on 12/31/18at 01:56; Admin Dose 1 EA; Start 12/30/18 at 02:00 Miscellaneous Information 1 ea NOTE XX ; Start 12/29/18 at 09:00 Glucose (Glutose) 15 gm Q15M PRN PO DECREASED GLUCOSE; Start 12/29/18 at 09:00 Glucose (Glutose) 22.5 gm Q15M PRN PO DECREASED GLUCOSE; Start 12/29/18 at 09:00 Dextrose (D50w Syringe) 25 ml Q15M PRN IV DECREASED GLUCOSE; Start 12/29/18 at 09:00 Dextrose (D50w Syringe) 50 ml Q15M PRN IV DECREASED GLUCOSE; Start 12/29/18 at 09:00 Glucagon (Glucagen) 1 mg Q15M PRN IM DECREASED GLUCOSE; Start 12/29/18 at 09:00 Glucose (Glutose) 15 gm Q15M PRN BUCCAL DECREASED GLUCOSE; Start 12/29/18 at 09:00 Atorvastatin Calcium (Lipitor) 40 mg HS GTB Last administered on 01/05/19 20:51; Admin Dose 40 MG; Start 12/29/18 at 21:00 Diltiazem HCl (Cardizem Iv) 5 mg Q4H PRN IV NOTE Last administered on 12/30/18 23:56; Admin Dose 5 MG; Start 12/30/18 at 23:30 Meropenem/Sodium Chloride 50 ml @ 100 mls/hr Q8 IVPB Last administered on 01/06/19 13:57; Admin Dose 100 MLS/HR; Start 12/31/18 at 14:00 Doxycycline Hyclate (Vibramycin) 100 mg BID GTB Last administered on 01/06/19 08:26; Admin Dose 100 MG; Start 12/31/18 at 09:00 Lactobacillus Acidophilus (Florajen3 Capsule) 1 each BID PO Last administered on 01/06/19 08:26; Admin Dose 1 EACH; Start 12/31/18 at 09:00 Insulin Glargine (Lantus) 23 units DAILY@2000 SC Last administered on 01/05/19 20:53; Admin Dose 23 UNITS; Start 12/31/18 at 20:00 Albuterol/ Ipratropium (Duoneb) 3 ml Q8H RESP THERAPY HHN Last administered on 01/06/19 15:35; Admin Dose 3 ML; Start 01/02/19 at 16:00 Famotidine (Pepcid) 20 mg BID GTB Last administered on 01/06/19 08:26; Admin Dose 20 MG; Start 01/03/19 at 21:00 Cholestyramine Resin (Questran Light) 4 gm Q12H PO Last administered on 01/06/19 12:25; Admin Dose 4 GM; Start 01/03/19 at 23:00 HERMES GONSALEZ MD Jan 06, 2019 18:24
[2019-01-06 19:54] VITALS: BP 135/64; PULSE 79; RESP 18
[2019-01-06] MEDS: ATORVASTATIN 40 MG TAB GTB SCH (20:20)
[2019-01-06] MEDS: INSULIN GLARGINE [LANTus] (100 UNITS/ML) SYG SC SCH (20:22)
--- NOTE | 2019-01-06 20:31 | PN ---
DATE: 01/06/2019 SUBJECTIVE: The patient is more awake and responsive. OBJECTIVE: VITAL SIGNS: Temperature 98.3, blood pressure 130/64, O2 sats 100% on room air. HEENT: Head normocephalic. Moderate pallor without cyanosis. CHEST: Few scattered rhonchi bilaterally. HEART: S1, S2 heard, no definite gallops. EXTREMITIES: No edema. IMPRESSION: 1. Status post septic shock with pneumonia. 2. Intermittent atrial fibrillation. Patient in normal sinus rhythm. 3. Diabetes mellitus type 2, well controlled. 4. Status post cerebrovascular accident with right hemiparesis. 5. Diabetic enteropathy with diarrhea. Clostridium difficile negative, cultures negative. PLAN: Continue IV Merrem. Chest x-ray from yesterday shows right lower lobe infiltrate. Will jaden nue IV Merrem and doxycycline per Dr. Montero. Dictated By: JP THACKER MD SR/NTS Conf#: [id number] DID#: [id number] CC: JP THACKER MD;*EndCC*
[2019-01-07] MEDS: ALBUTEROL/IPRATROPIUM (NEB) 3 ML AMP HHN SCH ×5 (00:14→23:38)
[2019-01-07] MEDS: INSULIN ASPART [NOVOLOG] 3 ML PEN SC SCH ×5 (01:09→18:00)
[2019-01-07] MEDS: ACCU-CHEK XX SCH (01:13)
[2019-01-07 01:32] VITALS: BP 121/56; PULSE 78; RESP 16
[2019-01-07] MEDS: MEROPENEM 1 GM/50ML(PMX) 50 ML IVPB SCH ×3 (05:40→21:23)
--- NOTE | 2019-01-07 07:24 | CONS ---
Assessment/Plan Assessment/Plan Hospital Course (Demo Recall) 1) sepsis, unclear etiology (more likely the colon) diarrhea but neg c.dif and neg stool cx to date pt has some nodular densities and tree in bud formation could have pneumonitis but no F or cough is present alk phos is mildly elevated urine does not show significant pyuria and urine cx is NGTD urine cx from outside when he had a neg u/a had a very sensitive e.coli present to change antibiotics to merrem/doxy, to cover atypicals in lung as well as anaerobes as pt is high risk for aspiration get RUQ u/s to verify the GB is ok and not the source for infection if diarrhea persists to get abd/pelv CT start probiotics 01/01 - improved WBC but with abd pain and pus like material in stool to order abd/pelv CT with oral contrast urine cx was neg abd u/s did not show gallstones and only mildly thickened GB wall, no GB distension 01/02 - CT abd/pelv shows proctitis/distal colitis, stool is less smelly WBC back to WNL continue with merrem/doxy at present I suspect the colon was the source of his sepsis, consider GI consult 2) lung nodules with tree-in bud formation unable to get sputum cx change antibiotics to doxy/merrem to cover atypicals and anaerobes check ESR, HARESH, ANCA check beta d glucan (doubt fungal disease but will check) atypical mycobacteria is possible but would not explain his septic picture, to check quant TB gold though pt will need follow chest CT in a few months 01/01 - continue with doxy/merrem for possible aspiration pneumonia and HCAP 01/02 - lungs are stable 01/03 - procalcitonin is improving, to repeat in a.m. continue with doxy/merrem, day 4 01/04 - stable continue for 8 day course of doxy/merrem (thru 01/07) 01/06 - CXR results noted day 12/31 of doxy/merrem procalcitonin continues to improve, repeat in a.m. 01/07 - if procalcitonin continues to improve to dc antibiotics after today's doses 3) diarrhea c.dif was neg, stool cx is NGTD doubt he has a parasitic infection start probiotic if abd u/s is neg, to consider ct abd if diarrhea persists 01/01 - to get CT abd/pelv 01/02 - colitis/proctitis noted on CT less stool but still liquid but also less smelly consider GI consult, pt likely to need GI follow-up after this acute event 01/03 - still with liquid brown/del rio stool, no pus or mucus appreciated neg c.dif and stool is less smelly on merrem/doxy consider GI input 01/04 - seen by GI, O& P ordered 01/06 - improved 4) CVA with R sided hemiplegia 5) elevated alk phos check RUQ u/s 01/01 - contracted GB, no stone on u/s 6) DM improved sugars here 7) rapid a-fib pt is on cardizem drip Consultation Date/Type/Reason Admit Date/Time Dec 29, 2018 at 01:35 Initial Consult Date 12/31/18 Type of Consult ID Date/Time of Note DATE: 01/07/19 TIME: 07:22 24 HR Interval Summary Free Text/Dictation no change spoke to nurse one loose stool yesterday a.m. no V more alert for pt but mostly mumbles Exam/Review of Systems Exam Vitals Vital Signs Date Temp Pulse Resp B/P (MAP) Pulse Ox O2 O2 Flow FiO2 Time Delivery Rate 01/07/19 98.0 78 16 121/56 97 01:32 (77) 01/07/19 21 00:14 01/06/19 Room Air 08:15 Intake and Output 01/06/19 01/06/19 01/07/19 1515:00 23:00 07:00 IntakeIntake Total 50 ml 50 ml 50 ml OutputOutput Total 1200 ml BalanceBalance 50 ml 50 ml -1150 ml Constitutional: alert Eyes: nl sclera ENMT: mucosa pink and moist Respiratory: clear to auscultation Cardiovascular: regular rate and rhythm Gastrointestinal: soft, non-tender Results Result Diagram: 01/04/19 0513 01/04/19 0513 Results 24hrs Laboratory Tests Test 01/06/19 09:34 01/06/19 12:24 01/06/19 17:31 01/06/19 20:19 Bedside Glucose 166 170 157 162 Test 01/07/19 01:05 01/07/19 05:42 Bedside Glucose 151 176 Medications Medication Current Medications Albuterol/ Ipratropium (Duoneb) 3 ml Q2H RESP THERAPY PRN NEB SHORTNESS OF BREATH; Start 12/29/18 at 03:30 Acetaminophen (Tylenol Liquid) 650 mg Q6H PRN PO PAIN LEVEL 1-3 OR FEVER Last administered on 01/04/19at 10:47; Admin Dose 650 MG; Start 12/29/18 at 03:30 Heparin Sodium (Porcine) (Heparin (5000 Units/1ml)) 5,000 unit Q12 SC Last administered on 01/06/19 20:23; Admin Dose 5,000 UNIT; Start 12/29/18 at 09:00 Ondansetron HCl (Zofran Inj) 4 mg Q4H PRN IV NAUSEA AND/OR VOMITING; Start 12/29/18 at 08:30 Insulin Aspart (Novolog Insulin Pen) NOVOLOG *MODERATE* ALGORI... Q4 SC Last administered on 01/07/19 05:44; Admin Dose 2 UNIT; Start 12/29/18 at 09:00 Diagnostic Test (Pha) (Accu-Chek) 1 ea 02 XX Last administered on 12/31/18 01:56; Admin Dose 1 EA; Start 12/30/18 at 02:00 Miscellaneous Information 1 ea NOTE XX ; Start 12/29/18 at 09:00 Glucose (Glutose) 15 gm Q15M PRN PO DECREASED GLUCOSE; Start 12/29/18 at 09:00 Glucose (Glutose) 22.5 gm Q15M PRN PO DECREASED GLUCOSE; Start 12/29/18 at 09:00 Dextrose (D50w Syringe) 25 ml Q15M PRN IV DECREASED GLUCOSE; Start 12/29/18 at 09:00 Dextrose (D50w Syringe) 50 ml Q15M PRN IV DECREASED GLUCOSE; Start 12/29/18 at 09:00 Glucagon (Glucagen) 1 mg Q15M PRN IM DECREASED GLUCOSE; Start 12/29/18 at 09:00 Glucose (Glutose) 15 gm Q15M PRN BUCCAL DECREASED GLUCOSE; Start 12/29/18 at 09:00 Atorvastatin Calcium (Lipitor) 40 mg HS GTB Last administered on 01/06/19at 20:20; Admin Dose 40 MG; Start 12/29/18 at 21:00 Diltiazem HCl (Cardizem Iv) 5 mg Q4H PRN IV NOTE Last administered on 12/30/18at 23:56; Admin Dose 5 MG; Start 12/30/18 at 23:30 Meropenem/Sodium Chloride 50 ml @ 100 mls/hr Q8 IVPB Last administered on 01/07/19 05:40; Admin Dose 100 MLS/HR; Start 12/31/18 at 14:00 Doxycycline Hyclate (Vibramycin) 100 mg BID GTB Last administered on 01/06/19 20:20; Admin Dose 100 MG; Start 12/31/18 at 09:00 Lactobacillus Acidophilus (Florajen3 Capsule) 1 each BID PO Last administered on 01/06/19 20:20; Admin Dose 1 EACH; Start 12/31/18 at 09:00 Insulin Glargine (Lantus) 23 units DAILY@2000 SC Last administered on 01/06/19 20:22; Admin Dose 23 UNITS; Start 12/31/18 at 20:00 Albuterol/ Ipratropium (Duoneb) 3 ml Q8H RESP THERAPY HHN Last administered on 01/07/19 00:14; Admin Dose 3 ML; Start 01/02/19 at 16:00 Famotidine (Pepcid) 20 mg BID GTB Last administered on 01/06/19 20:20; Admin Dose 20 MG; Start 01/03/19 at 21:00 Cholestyramine Resin (Questran Light) 4 gm Q12H PO Last administered on 01/06/19 22:18; Admin Dose 4 GM; Start 01/03/19 at 23:00 BORIS WATSON MD Jan 07, 2019 07:24
--- NOTE | 2019-01-07 07:51 | CONS ---
Assessment/Plan Assessment/Plan Hospital Course (Demo Recall) 73 yo male with proctitis noted on CT Last bm yesterday, semi liquid/soft. Tolerating tube feeds 1. Septic shock secondary to pneumonia. 2. Atrial fibrillation. The patient is now in normal sinus rhythm. 3. Diabetes mellitus. 4. Cerebrovascular accident. 5. 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 -improved -stool cx, c diff and ova and parasite negative 6. Hypertension. 7. Hyperlipidemia. 8. Proctitis on the CAT scan. It could be inflammatory or due to the balloon from rectal tube. Plan Continue present care Continue Stefanie Pt examined and plan of care d/w Dr. Joyce Consultation Date/Type/Reason Admit Date/Time Dec 29, 2018 at 01:35 Initial Consult Date 12/31/18 Date/Time of Note DATE: 01/07/19 TIME: 07:49 Exam/Review of Systems Exam Vitals Vital Signs Date Temp Pulse Resp B/P (MAP) Pulse Ox O2 O2 Flow FiO2 Time Delivery Rate 01/07/19 98.0 78 16 121/56 97 01:32 (77) 01/07/19 21 00:14 01/06/19 Room Air 08:15 Intake and Output 01/06/19 01/06/19 01/07/19 1515:00 23:00 07:00 IntakeIntake Total 50 ml 50 ml 50 ml OutputOutput Total 1200 ml BalanceBalance 50 ml 50 ml -1150 ml Head: normocephalic Eyes: nl sclera, PERRL Respiratory: normal air movement Cardiovascular: regular rate and rhythm Gastrointestinal: soft, non-tender, bowel sounds Results Result Diagram: 01/04/19 0513 01/04/19 0513 Results 24hrs Laboratory Tests Test 01/06/19 09:34 01/06/19 12:24 01/06/19 17:31 01/06/19 20:19 Bedside Glucose 166 170 157 162 Test 01/07/19 01:05 01/07/19 05:42 Bedside Glucose 151 176 Medications Medication Current Medications Albuterol/ Ipratropium (Duoneb) 3 ml Q2H RESP THERAPY PRN NEB SHORTNESS OF BREATH; Start 12/29/18 at 03:30 Acetaminophen (Tylenol Liquid) 650 mg Q6H PRN PO PAIN LEVEL 1-3 OR FEVER Last administered on 01/04/19at 10:47; Admin Dose 650 MG; Start 12/29/18 at 03:30 Heparin Sodium (Porcine) (Heparin (5000 Units/1ml)) 5,000 unit Q12 SC Last administered on 01/06/19 20:23; Admin Dose 5,000 UNIT; Start 12/29/18 at 09:00 Ondansetron HCl (Zofran Inj) 4 mg Q4H PRN IV NAUSEA AND/OR VOMITING; Start 12/29/18 at 08:30 Insulin Aspart (Novolog Insulin Pen) NOVOLOG *MODERATE* ALGORI... Q4 SC Last administered on 01/07/19 05:44; Admin Dose 2 UNIT; Start 12/29/18 at 09:00 Diagnostic Test (Pha) (Accu-Chek) 1 ea 02 XX Last administered on 12/31/18 01:56; Admin Dose 1 EA; Start 12/30/18 at 02:00 Miscellaneous Information 1 ea NOTE XX ; Start 12/29/18 at 09:00 Glucose (Glutose) 15 gm Q15M PRN PO DECREASED GLUCOSE; Start 12/29/18 at 09:00 Glucose (Glutose) 22.5 gm Q15M PRN PO DECREASED GLUCOSE; Start 12/29/18 at 09:00 Dextrose (D50w Syringe) 25 ml Q15M PRN IV DECREASED GLUCOSE; Start 12/29/18 at 09:00 Dextrose (D50w Syringe) 50 ml Q15M PRN IV DECREASED GLUCOSE; Start 12/29/18 at 09:00 Glucagon (Glucagen) 1 mg Q15M PRN IM DECREASED GLUCOSE; Start 12/29/18 at 09:00 Glucose (Glutose) 15 gm Q15M PRN BUCCAL DECREASED GLUCOSE; Start 12/29/18 at 09:00 Atorvastatin Calcium (Lipitor) 40 mg HS GTB Last administered on 01/06/19 20:20; Admin Dose 40 MG; Start 12/29/18 at 21:00 Diltiazem HCl (Cardizem Iv) 5 mg Q4H PRN IV NOTE Last administered on 12/30/18at 23:56; Admin Dose 5 MG; Start 12/30/18 at 23:30 Meropenem/Sodium Chloride 50 ml @ 100 mls/hr Q8 IVPB Last administered on 01/07/19at 05:40; Admin Dose 100 MLS/HR; Start 12/31/18 at 14:00 Doxycycline Hyclate (Vibramycin) 100 mg BID GTB Last administered on 01/06/19 20:20; Admin Dose 100 MG; Start 12/31/18 at 09:00; Stop 01/08/19 at 03:00 Lactobacillus Acidophilus (Florajen3 Capsule) 1 each BID PO Last administered on 01/06/19 20:20; Admin Dose 1 EACH; Start 12/31/18 at 09:00 Insulin Glargine (Lantus) 23 units DAILY@2000 SC Last administered on 01/06/19 20:22; Admin Dose 23 UNITS; Start 12/31/18 at 20:00 Albuterol/ Ipratropium (Duoneb) 3 ml Q8H RESP THERAPY HHN Last administered on 01/07/19at 00:14; Admin Dose 3 ML; Start 01/02/19 at 16:00 Famotidine (Pepcid) 20 mg BID GTB Last administered on 01/06/19 20:20; Admin Dose 20 MG; Start 01/03/19 at 21:00 Cholestyramine Resin (Questran Light) 4 gm Q12H PO Last administered on 01/06/19 22:18; Admin Dose 4 GM; Start 01/03/19 at 23:00 JR YOON Jan 07, 2019 07:51
[2019-01-07 08:27] VITALS: BP 135/65; PULSE 84; RESP 19
[2019-01-07] MEDS: FAMOTIDINE 20 MG TAB GTB SCH ×2 (09:11→20:47)
[2019-01-07] MEDS: DOXYCYCLINE 100 MG TAB GTB SCH ×2 (09:11→20:47)
[2019-01-07] MEDS: L ACIDOPHIL/B LACTIS/B LONGUM CAPSULE PO SCH ×2 (09:11→20:47)
[2019-01-07] MEDS: HEPARIN 5,000 UNIT/1 ML VIAL SC SCH ×2 (09:11→20:54)
--- NOTE | 2019-01-07 12:28 | CONS ---
Consult Date/Type/Reason Admit Date/Time Dec 29, 2018 at 01:35 Initial Consult Date 12/31/18 Type of Consult Pulmonary Date/Time of Note DATE: 01/07/19 TIME: 12:28 Subjective Patient comfortable this morning no respiratory distress Objective Vital Signs Date Temp Pulse Resp B/P (MAP) Pulse Ox O2 O2 Flow FiO2 Time Delivery Rate 01/07/19 98.6 84 19 135/65 97 Room Air 08:27 (88) 01/07/19 21 08:07 Intake and Output 01/06/19 01/06/19 01/07/19 1515:00 23:00 07:00 IntakeIntake Total 50 ml 50 ml 50 ml OutputOutput Total 1200 ml BalanceBalance 50 ml 50 ml -1150 ml Exam PHYSICAL EXAMINATION: GENERAL: Well-nourished, well-developed gentleman, comfortable at rest, talking in full and complete sentences. VITAL SIGNS: NECK: Supple. No JVD or lymphadenopathy. CARDIAC: S1, S2, no added sounds or murmurs. CHEST: Diminished air entry, left base. ABDOMEN: Soft, nontender. No guarding or rebound. EXTREMITIES: No cyanosis, clubbing, edema. NEUROLOGIC: Grossly intact. No focal deficits Vent Setting Fraction of Inspired Oxygen pe: 21 Results/Medications Result Diagram: 01/04/19 0513 01/04/19 0513 Results 24 hrs Laboratory Tests Test 01/06/19 17:31 01/06/19 20:19 01/07/19 01:05 01/07/19 05:11 Bedside Glucose 157 162 151 Procalcitonin 0.35 H Test 01/07/19 05:42 01/07/19 09:19 01/07/19 10:52 Bedside Glucose 176 172 Lab Scanned Report REFERENCE LAB Medications Current Medications Albuterol/ Ipratropium (Duoneb) 3 ml Q2H RESP THERAPY PRN NEB SHORTNESS OF BREATH; Start 12/29/18 at 03:30 Acetaminophen (Tylenol Liquid) 650 mg Q6H PRN PO PAIN LEVEL 1-3 OR FEVER Last administered on 01/04/19at 10:47; Admin Dose 650 MG; Start 12/29/18 at 03:30 Heparin Sodium (Porcine) (Heparin (5000 Units/1ml)) 5,000 unit Q12 SC Last administered on 01/07/19at 09:11; Admin Dose 5,000 UNIT; Start 12/29/18 at 09:00 Ondansetron HCl (Zofran Inj) 4 mg Q4H PRN IV NAUSEA AND/OR VOMITING; Start 12/29/18 at 08:30 Diagnostic Test (Pha) (Accu-Chek) 1 ea 02 XX Last administered on 12/31/18at 01:56; Admin Dose 1 EA; Start 12/30/18 at 02:00 Miscellaneous Information 1 ea NOTE XX ; Start 12/29/18 at 09:00 Glucose (Glutose) 15 gm Q15M PRN PO DECREASED GLUCOSE; Start 12/29/18 at 09:00 Glucose (Glutose) 22.5 gm Q15M PRN PO DECREASED GLUCOSE; Start 12/29/18 at 09:00 Dextrose (D50w Syringe) 25 ml Q15M PRN IV DECREASED GLUCOSE; Start 12/29/18 at 09:00 Dextrose (D50w Syringe) 50 ml Q15M PRN IV DECREASED GLUCOSE; Start 12/29/18 at 0 9:00 Glucagon (Glucagen) 1 mg Q15M PRN IM DECREASED GLUCOSE; Start 12/29/18 at 09:00 Glucose (Glutose) 15 gm Q15M PRN BUCCAL DECREASED GLUCOSE; Start 12/29/18 at 09:00 Atorvastatin Calcium (Lipitor) 40 mg HS GTB Last administered on 01/06/19at 20:20; Admin Dose 40 MG; Start 12/29/18 at 21:00 Diltiazem HCl (Cardizem Iv) 5 mg Q4H PRN IV NOTE Last administered on 12/30/18at 23:56; Admin Dose 5 MG; Start 12/30/18 at 23:30 Meropenem/Sodium Chloride 50 ml @ 100 mls/hr Q8 IVPB Last administered on 01/07/19at 05:40; Admin Dose 100 MLS/HR; Start 12/31/18 at 14:00 Doxycycline Hyclate (Vibramycin) 100 mg BID GTB Last administered on 01/07/19at 09:11; Admin Dose 100 MG; Start 12/31/18 at 09:00; Stop 01/08/19 at 03:00 Lactobacillus Acidophilus (Florajen3 Capsule) 1 each BID PO Last administered on 01/07/19at 09:11; Admin Dose 1 EACH; Start 12/31/18 at 09:00 Insulin Glargine (Lantus) 23 units DAILY@2000 SC Last administered on 01/06/19 20:22; Admin Dose 23 UNITS; Start 12/31/18 at 20:00 Albuterol/ Ipratropium (Duoneb) 3 ml Q8H RESP THERAPY HHN Last administered on 01/07/19at 08:06; Admin Dose 3 ML; Start 01/02/19 at 16:00 Famotidine (Pepcid) 20 mg BID GTB Last administered on 01/07/19at 09:11; Admin Dose 20 MG; Start 01/03/19 at 21:00 Cholestyramine Resin (Questran Light) 4 gm Q12H PO Last administered on 01/06/19at 22:18; Admin Dose 4 GM; Start 01/03/19 at 23:00 Insulin Aspart (Novolog Insulin Pen) NOVOLOG *MODERATE* ALGORITHM Q6 SC ; Start 01/07/19 at 12:00 Assessment/Plan Hospital Course (Demo Recall) Assessment and recommendations; 1. Resolving sepsis and septic shock. 2. Improved encephalopathy 3. Hx diabetes. Plan Aspiration precautions. pt ot [facility]RAUSE [facility] Jan 07, 2019 12:28
[2019-01-07] MEDS: CHOLESTYRAMINE (LIGHT) 4 GM PACKET PO SCH (13:33)
--- NOTE | 2019-01-07 14:54 | PN ---
DATE: 01/07/2019 SUBJECTIVE: The patient is more awake and responsive. OBJECTIVE: VITAL SIGNS: Temperature 98.6, blood pressure 134/65, O2 saturation 97% on room air. CHEST: Few crackles at the bases. HEART: S1, S2 heard, no definite gallops. EXTREMITIES: No edema. Dr. Montero' recommendations appreciated. Repeat procalcitonin pending. Blood glucose levels normal gl ycemic range. IMPRESSION: 1. Status post septic shock with pneumonia, improved. 2. Paroxysmal atrial fibrillation. Patient in normal sinus rhythm. 3. Diabetes mellitus type 2, well controlled. 4. Status post cerebrovascular accident with right hemiparesis. 5. Diabetic enteropathy with diarrhea. PLAN: Will continue present treatment. Change the Accu-Chek to q.6h. Dictated By: JP THACKER MD, SR/NTS Conf#: [id number] DID#: [id number]
[2019-01-07 14:58] VITALS: BP 124/66; PULSE 65; RESP 17
[2019-01-07 15:00] VITALS: BP 126/59; PULSE 80; RESP 19
[2019-01-07 19:47] VITALS: BP 133/61; PULSE 80; RESP 18
[2019-01-07] MEDS: ATORVASTATIN 40 MG TAB GTB SCH (20:47)
[2019-01-07] MEDS: INSULIN GLARGINE [LANTus] (100 UNITS/ML) SYG SC SCH (20:53)
[2019-01-08] MEDS: CHOLESTYRAMINE (LIGHT) 4 GM PACKET PO SCH ×2 (01:03→13:04)
[2019-01-08 01:26] VITALS: BP 111/66; PULSE 82; RESP 17
[2019-01-08] MEDS: ACCU-CHEK XX SCH (02:00)
[2019-01-08] MEDS: MEROPENEM 1 GM/50ML(PMX) 50 ML IVPB SCH (05:47)
[2019-01-08] MEDS: INSULIN ASPART [NOVOLOG] 3 ML PEN SC SCH ×4 (05:50→18:00)
[2019-01-08] MEDS: ALBUTEROL/IPRATROPIUM (NEB) 3 ML AMP HHN SCH ×2 (07:30→16:45)
[2019-01-08 07:47] VITALS: BP 123/58; PULSE 80; RESP 20
--- NOTE | 2019-01-08 08:49 | CONS ---
Assessment/Plan Assessment/Plan Hospital Course (Demo Recall) 73 yo male with proctitis noted on CT Last bm yesterday, semi liquid/soft. Tolerating tube feeds 1. Septic shock secondary to pneumonia. 2. Atrial fibrillation. The patient is now in normal sinus rhythm. 3. Diabetes mellitus. 4. Cerebrovascular accident. 5. 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 -improved -stool cx, c diff and ova and parasite negative 6. Hypertension. 7. Hyperlipidemia. 8. Proctitis on the CAT scan. It could be inflammatory or due to the balloon from rectal tube. Plan Continue present care Continue Stefanie Pt examined and plan of care d/w Dr. Joyce Consultation Date/Type/Reason Admit Date/Time Dec 29, 2018 at 01:35 Initial Consult Date 12/31/18 Date/Time of Note DATE: 01/08/19 TIME: 08:48 24 HR Interval Summary Free Text/Dictation Per RN diarrhea markedly improved. Went twice yesterday and was soft. Tolerating tube feeds. Exam/Review of Systems Exam Vitals Vital Signs Date Temp Pulse Resp B/P (MAP) Pulse Ox O2 O2 Flow FiO2 Time Delivery Rate 01/08/19 98.8 80 20 123/58 98 07:47 (79) 01/08/19 21 07:44 01/07/19 Room Air 15:00 Intake and Output 01/07/19 01/07/19 01/08/19 1515:00 23:00 07:00 IntakeIntake Total 50 ml 810 ml 50 ml OutputOutput Total 400 ml 850 ml BalanceBalance 50 ml 410 ml -800 ml Respiratory: normal air movement Cardiovascular: regular rate and rhythm Gastrointestinal: soft, non-tender, bowel sounds Results Result Diagram: 01/04/19 0513 01/04/19 0513 Results 24hrs Laboratory Tests Test 01/07/19 09:19 01/07/19 10:52 01/07/19 13:35 01/07/19 17:49 Bedside Glucose 172 163 140 Lab Scanned Report REFERENCE LAB Test 01/07/19 20:48 01/08/19 01:08 01/08/19 05:50 Bedside Glucose 157 140 154 Medications Medication Current Medications Albuterol/ Ipratropium (Duoneb) 3 ml Q2H RESP THERAPY PRN NEB SHORTNESS OF BREATH; Start 12/29/18 at 03:30 Acetaminophen (Tylenol Liquid) 650 mg Q6H PRN PO PAIN LEVEL 1-3 OR FEVER Last administered on 01/04/19at 10:47; Admin Dose 650 MG; Start 12/29/18 at 03:30 Heparin Sodium (Porcine) (Heparin (5000 Units/1ml)) 5,000 unit Q12 SC Last administered on 01/07/19 20:54; Admin Dose 5,000 UNIT; Start 12/29/18 at 09:00 Ondansetron HCl (Zofran Inj) 4 mg Q4H PRN IV NAUSEA AND/OR VOMITING; Start 12/29/18 at 08:30 Diagnostic Test (Pha) (Accu-Chek) 1 ea 02 XX Last administered on 12/31/18 01:56; Admin Dose 1 EA; Start 12/30/18 at 02:00 Miscellaneous Information 1 ea NOTE XX ; Start 12/29/18 at 09:00 Glucose (Glutose) 15 gm Q15M PRN PO DECREASED GLUCOSE; Start 12/29/18 at 09:00 Glucose (Glutose) 22.5 gm Q15M PRN PO DECREASED GLUCOSE; Start 12/29/18 at 09:00 Dextrose (D50w Syringe) 25 ml Q15M PRN IV DECREASED GLUCOSE; Start 12/29/18 at 09:00 Dextrose (D50w Syringe) 50 ml Q15M PRN IV DECREASED GLUCOSE; Start 12/29/18 at 09:00 Glucagon (Glucagen) 1 mg Q15M PRN IM DECREASED GLUCOSE; Start 12/29/18 at 09:00 Glucose (Glutose) 15 gm Q15M PRN BUCCAL DECREASED GLUCOSE; Start 12/29/18 at 09:00 Atorvastatin Calcium (Lipitor) 40 mg HS GTB Last administered on 01/07/19 20:47; Admin Dose 40 MG; Start 12/29/18 at 21:00 Diltiazem HCl (Cardizem Iv) 5 mg Q4H PRN IV NOTE Last administered on 12/30/18at 23:56; Admin Dose 5 MG; Start 12/30/18 at 23:30 Meropenem/Sodium Chloride 50 ml @ 100 mls/hr Q8 IVPB Last administered on 01/08/19 05:47; Admin Dose 100 MLS/HR; Start 12/31/18 at 14:00 Lactobacillus Acidophilus (Florajen3 Capsule) 1 each BID PO Last administered on 01/07/19 20:47; Admin Dose 1 EACH; Start 12/31/18 at 09:00 Insulin Glargine (Lantus) 23 units DAILY@2000 SC Last administered on 01/07/19 20:53; Admin Dose 23 UNITS; Start 12/31/18 at 20:00 Albuterol/ Ipratropium (Duoneb) 3 ml Q8H RESP THERAPY HHN Last administered on 01/08/19 07:30; Admin Dose 3 ML; Start 01/02/19 at 16:00 Famotidine (Pepcid) 20 mg BID GTB Last administered on 01/07/19 20:47; Admin Dose 20 MG; Start 01/03/19 at 21:00 Cholestyramine Resin (Questran Light) 4 gm Q12H PO Last administered on 01/08/19 01:03; Admin Dose 4 GM; Start 01/03/19 at 23:00 Insulin Aspart (Novolog Insulin Pen) NOVOLOG *MODERATE* ALGORITHM Q6 SC Last administered on 01/07/19 14:06; Admin Dose 2 UNIT; Start 01/07/19 at 12:00 JR YOON Jan 08, 2019 08:49
[2019-01-08] MEDS: FAMOTIDINE 20 MG TAB GTB SCH ×2 (09:55→20:59)
[2019-01-08] MEDS: L ACIDOPHIL/B LACTIS/B LONGUM CAPSULE PO SCH ×2 (09:55→20:59)
[2019-01-08] MEDS: HEPARIN 5,000 UNIT/1 ML VIAL SC SCH ×2 (10:00→21:10)
[2019-01-08 14:31] VITALS: BP 127/60; PULSE 78; RESP 20
--- NOTE | 2019-01-08 16:44 | PN ---
DATE: 01/08/2019 SUBJECTIVE: The patient is more awake and responsive, occasional cough. Denies any chest pain. OBJECTIVE: VITAL SIGNS: Temperature 98.8, blood pressure 123/58, O2 sats 98% on room air. CHEST: Decreased breath sounds at bases. HEART: S1, S2 heard, no rubs or gallops. EXTREMITIES: No edema. LABORATORY DATA: Blood glucose levels in the normoglycemic range. IMPRESSION: 1. Status post septic shock with pneumonia, clinically improving. 2. Paroxysmal atrial fibrillation, presently normal sinus rhythm. 3. Diabetes type 2, well controlled. 4. Status post severe . 5. Diabetic enteropathy, improving. PLAN: We will repeat chest x-ray today and initiate discharge planning and if patient is stable over the next 24 hours, consider discharge to a convalescent home. Dictated By: JP THACKER MD, SR/DAXA Conf#: [id number] DID#: [id number]
[2019-01-08 19:54] VITALS: BP 138/63; PULSE 76; RESP 18
[2019-01-08] MEDS: ATORVASTATIN 40 MG TAB GTB SCH (20:59)
[2019-01-08] MEDS: INSULIN GLARGINE [LANTus] (100 UNITS/ML) SYG SC SCH (21:11)
[2019-01-09] MEDS: CHOLESTYRAMINE (LIGHT) 4 GM PACKET PO SCH ×2 (00:02→11:41)
[2019-01-09] MEDS: INSULIN ASPART [NOVOLOG] 3 ML PEN SC SCH ×4 (00:19→17:58)
[2019-01-09] MEDS: ACCU-CHEK XX SCH (00:28)
[2019-01-09] MEDS: ALBUTEROL/IPRATROPIUM (NEB) 3 ML AMP HHN SCH ×3 (00:42→16:00)
[2019-01-09 02:18] VITALS: BP 118/56; PULSE 78; RESP 20
--- NOTE | 2019-01-09 07:24 | CONS ---
Assessment/Plan Assessment/Plan Hospital Course (Demo Recall) 1) sepsis, unclear etiology (more likely the colon) diarrhea but neg c.dif and neg stool cx to date pt has some nodular densities and tree in bud formation could have pneumonitis but no F or cough is present alk phos is mildly elevated urine does not show significant pyuria and urine cx is NGTD urine cx from outside when he had a neg u/a had a very sensitive e.coli present to change antibiotics to merrem/doxy, to cover atypicals in lung as well as anaerobes as pt is high risk for aspiration get RUQ u/s to verify the GB is ok and not the source for infection if diarrhea persists to get abd/pelv CT start probiotics 01/01 - improved WBC but with abd pain and pus like material in stool to order abd/pelv CT with oral contrast urine cx was neg abd u/s did not show gallstones and only mildly thickened GB wall, no GB distension 01/02 - CT abd/pelv shows proctitis/distal colitis, stool is less smelly WBC back to WNL continue with merrem/doxy at present I suspect the colon was the source of his sepsis, consider GI consult 2) lung nodules with tree-in bud formation unable to get sputum cx change antibiotics to doxy/merrem to cover atypicals and anaerobes check ESR, HARESH, ANCA check beta d glucan (doubt fungal disease but will check) atypical mycobacteria is possible but would not explain his septic picture, to check quant TB gold though pt will need follow chest CT in a few months 01/01 - continue with doxy/merrem for possible aspiration pneumonia and HCAP 01/02 - lungs are stable 01/03 - procalcitonin is improving, to repeat in a.m. continue with doxy/merrem, day 4 01/04 - stable continue for 8 day course of doxy/merrem (thru 01/07) 01/06 - CXR results noted day 12/31 of doxy/merrem procalcitonin continues to improve, repeat in a.m. 01/07 - if procalcitonin continues to improve to dc antibiotics after today's doses 01/09 - off antibiotics for over 24 hours and doing well ok for d/c from ID perspective 3) diarrhea c.dif was neg, stool cx is NGTD doubt he has a parasitic infection start probiotic if abd u/s is neg, to consider ct abd if diarrhea persists 01/01 - to get CT abd/pelv 01/02 - colitis/proctitis noted on CT less stool but still liquid but also less smelly consider GI consult, pt likely to need GI follow-up after this acute event 01/03 - still with liquid brown/del rio stool, no pus or mucus appreciated neg c.dif and stool is less smelly on merrem/doxy consider GI input 01/04 - seen by GI, O& P ordered 01/06 - improved 4) CVA with R sided hemiplegia 5) elevated alk phos check RUQ u/s 01/01 - contracted GB, no stone on u/s 6) DM improved sugars here 7) rapid a-fib pt is on cardizem drip Consultation Date/Type/Reason Admit Date/Time Dec 29, 2018 at 01:35 Initial Consult Date 12/31/18 Type of Consult ID Date/Time of Note DATE: 01/09/19 TIME: 07:22 24 HR Interval Summary Free Text/Dictation pt nods to questions no abd pain, N, V no D spoke to nurse, pt is doing well Exam/Review of Systems Exam Vitals Vital Signs Date Temp Pulse Resp B/P (MAP) Pulse Ox O2 O2 Flow FiO2 Time Delivery Rate 01/09/19 98.5 78 20 118/56 99 02:18 (76) 01/09/19 21 00:44 01/07/19 Room Air 15:00 Intake and Output 01/08/19 01/08/19 01/09/19 1515:00 23:00 07:00 IntakeIntake Total 730 ml 740 ml OutputOutput Total 950 ml BalanceBalance -220 ml 740 ml Constitutional: alert, non-verbal Eyes: nl sclera Respiratory: clear to auscultation Cardiovascular: regular rate and rhythm Gastrointestinal: soft, non-tender Results Results 24hrs Laboratory Tests Test 01/08/19 13:04 01/08/19 18:41 01/08/19 20:58 01/09/19 00:04 Bedside Glucose 190 121 133 156 Test 01/09/19 06:29 Bedside Glucose 165 Medications Medication Current Medications Albuterol/ Ipratropium (Duoneb) 3 ml Q2H RESP THERAPY PRN NEB SHORTNESS OF BREATH; Start 12/29/18 at 03:30 Acetaminophen (Tylenol Liquid) 650 mg Q6H PRN PO PAIN LEVEL 1-3 OR FEVER Last administered on 01/04/19at 10:47; Admin Dose 650 MG; Start 12/29/18 at 03:30 Heparin Sodium (Porcine) (Heparin (5000 Units/1ml)) 5,000 unit Q12 SC Last administered on 01/08/19at 21:10; Admin Dose 5,000 UNIT; Start 12/29/18 at 09:00 Ondansetron HCl (Zofran Inj) 4 mg Q4H PRN IV NAUSEA AND/OR VOMITING; Start 12/29/18 at 08:30 Diagnostic Test (Pha) (Accu-Chek) 1 ea 02 XX Last administered on 12/31/18at 01:56; Admin Dose 1 EA; Start 12/30/18 at 02:00 Miscellaneous Information 1 ea NOTE XX ; Start 12/29/18 at 09:00 Glucose (Glutose) 15 gm Q15M PRN PO DECREASED GLUCOSE; Start 12/29/18 at 09:00 Glucose (Glutose) 22.5 gm Q15M PRN PO DECREASED GLUCOSE; Start 12/29/18 at 09:00 Dextrose (D50w Syringe) 25 ml Q15M PRN IV DECREASED GLUCOSE; Start 12/29/18 at 09:00 Dextrose (D50w Syringe) 50 ml Q15M PRN IV DECREASED GLUCOSE; Start 12/29/18 at 09:00 Glucagon (Glucagen) 1 mg Q15M PRN IM DECREASED GLUCOSE; Start 12/29/18 at 09:00 Glucose (Glutose) 15 gm Q15M PRN BUCCAL DECREASED GLUCOSE; Start 12/29/18 at 09:00 Atorvastatin Calcium (Lipitor) 40 mg HS GTB Last administered on 01/08/19 20:59; Admin Dose 40 MG; Start 12/29/18 at 21:00 Diltiazem HCl (Cardizem Iv) 5 mg Q4H PRN IV NOTE Last administered on 12/30/18at 23:56; Admin Dose 5 MG; Start 12/30/18 at 23:30 Lactobacillus Acidophilus (Florajen3 Capsule) 1 each BID PO Last administered on 01/08/19 20:59; Admin Dose 1 EACH; Start 12/31/18 at 09:00 Insulin Glargine (Lantus) 23 units DAILY@2000 SC Last administered on 01/08/19at 21:11; Admin Dose 23 UNITS; Start 12/31/18 at 20:00 Albuterol/ Ipratropium (Duoneb) 3 ml Q8H RESP THERAPY HHN Last administered on 01/09/19at 00:42; Admin Dose 3 ML; Start 01/02/19 at 16:00 Famotidine (Pepcid) 20 mg BID GTB Last administered on 01/08/19at 20:59; Admin Dose 20 MG; Start 01/03/19 at 21:00 Cholestyramine Resin (Questran Light) 4 gm Q12H PO Last administered on 01/09/19at 00:02; Admin Dose 4 GM; Start 01/03/19 at 23:00 Zinc Oxide (Desitin) 1 applic DAILY TOP ; Start 01/09/19 at 09:00 Insulin Aspart (Novolog Insulin Pen) NOVOLOG *MODERATE* ALGORI... Q6 SC Last administered on 01/09/19at 06:32; Admin Dose 2 UNIT; Start 01/09/19 at 00:30 BORIS WATSON MD Jan 09, 2019 07:24
[2019-01-09 07:44] VITALS: BP 136/61; PULSE 84; RESP 20
[2019-01-09] MEDS: FAMOTIDINE 20 MG TAB GTB SCH (08:44)
[2019-01-09] MEDS: L ACIDOPHIL/B LACTIS/B LONGUM CAPSULE PO SCH (08:44)
[2019-01-09] MEDS: HEPARIN 5,000 UNIT/1 ML VIAL SC SCH (08:56)
[2019-01-09] MEDS ORDERED: ZINC OXIDE 13% (DESITIN) CREAM 2 OZ TUBE TOP SCH (09:00)
[2019-01-09 13:31] VITALS: BP 145/64; PULSE 87; RESP 20
--- NOTE | 2019-01-09 15:46 | CONS ---
Assessment/Plan Assessment/Plan Assessment/Plan (Daily) Hospital Course (Demo Recall) 73 yo male with proctitis noted on CT Last bm yesterday, semi liquid/soft. Tolerating tube feeds 1. Septic shock secondary to pneumonia. 2. Atrial fibrillation. The patient is now in normal sinus rhythm. 3. Diabetes mellitus. 4. Cerebrovascular accident. 5. 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 -improved -stool cx, c diff and ova and parasite negative 6. Hypertension. 7. Hyperlipidemia. 8. Proctitis on the CAT scan. It could be inflammatory or due to the balloon from rectal tube. Plan Continue present care Continue [facility] Consultation Date/Type/Reason Admit Date/Time Dec 29, 2018 at 01:35 Initial Consult Date 12/31/18 Date/Time of Note DATE: 01/09/19 TIME: 15:45 24 HR Interval Summary Constitutional: no complaints, improved Exam/Review of Systems Exam Vitals Vital Signs Date Temp Pulse Resp B/P (MAP) Pulse Ox O2 O2 Flow FiO2 Time Delivery Rate 01/09/19 98.3 87 20 145/64 97 13:31 (91) 01/09/19 21 00:44 01/07/19 Room Air 15:00 Intake and Output 01/08/19 01/08/19 01/09/19 1515:00 23:00 07:00 IntakeIntake Total 730 ml 740 ml OutputOutput Total 950 ml BalanceBalance -220 ml 740 ml Constitutional: alert, oriented, well developed Psych: no complaints, nl mood/affect Head: normocephalic, atraumatic Eyes: nl conjunctiva, EOMI, nl lids, nl sclera, PERRL ENMT: nl external ears & nose, nl lips & teeth, nl nasal mucosa & septum Neck: supple, non-tender Respiratory: clear to auscultation, normal air movement Cardiovascular: regular rate and rhythm, nl pulses Gastrointestinal: soft, nl liver, spleen, non-tender Musculoskeletal: nl extremities to inspection, nl gait and stance Extremities: normal pulses Neurological: SPINNER HYDRAULIC II-XII intact, nl mental status, nl speech, nl strength Skin: nl turgor; No rash or lesions Lymph: nl lymph nodes Results Results 24hrs Laboratory Tests Test 01/08/19 18:41 01/08/19 20:58 01/09/19 00:04 01/09/19 06:29 Bedside Glucose 121 133 156 165 Test 01/09/19 11:41 Bedside Glucose 183 Medications Medication Current Medications Albuterol/ Ipratropium (Duoneb) 3 ml Q2H RESP THERAPY PRN NEB SHORTNESS OF BREATH; Start 12/29/18 at 03:30 Acetaminophen (Tylenol Liquid) 650 mg Q6H PRN PO PAIN LEVEL 1-3 OR FEVER Last administered on 01/04/19at 10:47; Admin Dose 650 MG; Start 12/29/18 at 03:30 Heparin Sodium (Porcine) (Heparin (5000 Units/1ml)) 5,000 unit Q12 SC Last administered on 01/09/19at 08:56; Admin Dose 5,000 UNIT; Start 12/29/18 at 09:00 Ondansetron HCl (Zofran Inj) 4 mg Q4H PRN IV NAUSEA AND/OR VOMITING; Start 12/29/18 at 08:30 Diagnostic Test (Pha) (Accu-Chek) 1 ea 02 XX Last administered on 12/31/18at 01:56; Admin Dose 1 EA; Start 12/30/18 at 02:00 Miscellaneous Information 1 ea NOTE XX ; Start 12/29/18 at 09:00 Glucose (Glutose) 15 gm Q15M PRN PO DECREASED GLUCOSE; Start 12/29/18 at 09:00 Glucose (Glutose) 22.5 gm Q15M PRN PO DECREASED GLUCOSE; Start 12/29/18 at 09:00 Dextrose (D50w Syringe) 25 ml Q15M PRN IV DECREASED GLUCOSE; Start 12/29/18 at 09:00 Dextrose (D50w Syringe) 50 ml Q15M PRN IV DECREASED GLUCOSE; Start 12/29/18 at 09:00 Glucagon (Glucagen) 1 mg Q15M PRN IM DECREASED GLUCOSE; Start 12/29/18 at 09:00 Glucose (Glutose) 15 gm Q15M PRN BUCCAL DECREASED GLUCOSE; Start 12/29/18 at 09:00 Atorvastatin Calcium (Lipitor) 40 mg HS GTB Last administered on 01/08/19at 20:59; Admin Dose 40 MG; Start 12/29/18 at 21:00 Diltiazem HCl (Cardizem Iv) 5 mg Q4H PRN IV NOTE Last administered on 12/30/18at 23:56; Admin Dose 5 MG; Start 12/30/18 at 23:30 Lactobacillus Acidophilus (Florajen3 Capsule) 1 each BID PO Last administered on 01/09/19 08:44; Admin Dose 1 EACH; Start 12/31/18 at 09:00 Insulin Glargine (Lantus) 23 units DAILY@2000 SC Last administered on 01/08/19 21:11; Admin Dose 23 UNITS; Start 12/31/18 at 20:00 Albuterol/ Ipratropium (Duoneb) 3 ml Q8H RESP THERAPY HHN Last administered on 01/09/19 00:42; Admin Dose 3 ML; Start 01/02/19 at 16:00 Famotidine (Pepcid) 20 mg BID GTB Last administered on 01/09/19 08:44; Admin Dose 20 MG; Start 01/03/19 at 21:00 Cholestyramine Resin (Questran Light) 4 gm Q12H PO Last administered on 01/09/19 11:41; Admin Dose 4 GM; Start 01/03/19 at 23:00 Zinc Oxide (Desitin) 1 applic DAILY TOP Last administered on 01/09/19 08:44; Admin Dose 1 APPLIC; Start 01/09/19 at 09:00 Insulin Aspart (Novolog Insulin Pen) NOVOLOG *MODERATE* ALGORI... Q6 SC Last administered on 01/09/19 11:48; Admin Dose 4 UNIT; Start 01/09/19 at 00:30 HERMES GONSALEZ MD Jan 09, 2019 15:46
--- NOTE | 2019-01-10 03:04 | DS ---
DATE OF ADMISSION: 12/29/2018 DATE OF DISCHARGE: 01/09/2019 FINAL DIAGNOSES: 1. Septic shock with pneumonia, improved. 2. Paroxysmal atrial fibrillation, patient presently in normal sinus rhythm. 3. Diabetes mellitus type 2, previous uncontrolled, presently well controlled. 4. Status post cerebrovascular accident with right hemiparesis. 5. Diabetic enteropathy improved. HOSPITAL COURSE: The patient is a 73-year-old gentleman brought in from [facility] for evaluation of altered mental status and shortness of breath. The patient was found to be h ypoxic, tachycardic and hypotensive in the emergency room and was placed on pressors and admitted to the intensive care unit. He has a prior history of stroke with right hemiparesis. The patient was a phasic, temperature 98.0, blood pressure 100/39 in the ICU. Heart rate 100 per minute regular. Ches t was clear anteriorly. His white blood cell count was 21.9, platelet count 215,000, and the patient had evidence of bandemia. The patient was seen by Dr. Michel from pulmonary standpoint and Dr. Shanti decker from ID standpoint. He was maintained on vancomycin, which was discontinued. Antibiotics were vijay nged to doxycycline and Merrem to cover for atypicals and anaerobes. C. diff was negative. The do ent was placed on Probiotic. Abdominal ultrasound showed no evidence of gallstones, partially contra cted with mild gallbladder wall thickening. CT of the abdomen and pelvis showed rectal wall thickeni ng and adjacent stranding, concern for colitis and proctitis. The patient was seen by Dr. Maria Del Carmen arguelles GI standpoint and his impression was gastric enteropathy. The patient gradually improved. Blood p ressure remained stable. The patient had 1 episode of atrial fibrillation and improved with intraven ous Cardizem. Blood glucose levels remained in the normal range on NovoLog insulin and regimen of La ntus. He was more awake and responsive and was discharged back to the convalescent home in much impr burak condition on 01/09/2019. See attached med reconciliation. The patient will be followed by Dr. Godoy at the [facility]. Dictated By: JP THACKER MD SR/NTS Conf#: [id number] DID#: [id number]
== END 2019-01-09 17:55 | DRG 871 ==
LOC: E/R 00:08 → ICU 01:35 → EDBEDREQTM 04:37 → EDBEDREQ 04:37 → EDBEDREQSVC 04:37 → CANRESERV 04:44 → EDBEDREQ 07:38 → 2NE 01-03 17:50
PROVIDERS: ADMIT Internal Medicine; ATTEND Internal Medicine
PROC: 3E0F7GC Introduction of Other Therapeutic Substance into Respiratory Tract, Via Natural or Artificial Opening (ICD-10-PCS; principal; 2018-12-29)
DX: A41.9 Sepsis, unspecified organism (principal); R65.21 Severe sepsis with septic shock; J96.91 Respiratory failure, unspecified with hypoxia; I69.351 Hemiplegia and hemiparesis following cerebral infarction affecting right dominant side; R19.7 Diarrhea, unspecified; E11.9 Type 2 diabetes mellitus without complications; R13.10 Dysphagia, unspecified; I48.0 Paroxysmal atrial fibrillation; I10 Essential (primary) hypertension; F03.90 Unspecified dementia, unspecified severity, without behavioral disturbance, psychotic disturbance, mood disturbance, and anxiety; K62.89 Other specified diseases of anus and rectum; Z93.1 Gastrostomy status
CPT/HCPCS: 36415; 36600; 71045; 71275; 74177; 76705; 80048; 80053; 80202; 81001; 82270; 82803; 82962; 83605; 84145; 84484; 85025; 85378; 85610; 85730; 86480; 87045; 87075; 87081; 87086; 87177; 92610; 93005; 93306; 94640; 94644; 94664; 96374; 96375; A4310; J0692; J1644; J1815; J2185; J2370; J2930; J3370; J7030; Q9967